=== PATIENT | female | born 1965 | race Caucasian/White ===

== ENCOUNTER 2016-11-16 14:49 | Inpatient (IN) | payer SELFPAY ==
[2016-11-16] MEDS ORDERED: Adacel (T-DAP) 0.5 ML VIAL ONE (15:37)
[2016-11-16] MEDS ORDERED: HYDROcodone/Acetaminophen 5/325 mg Tablet ONE (15:37)
[2016-11-16] MEDS ORDERED: Ondansetron HCl/PF 4 MG/2 ML Vial IVP PRN (17:04)
[2016-11-16] MEDS ORDERED: Ondansetron ODT 4 MG TAB PO PRN (17:04)
[2016-11-16] MEDS ORDERED: Dextrose 50% Abboject 50 ML SYRINGE SLOW IVP PRN (17:04)
[2016-11-16] MEDS ORDERED: HumaLOG 300 UNITS/3 ML VIAL SC PRN ×2 (17:04)
[2016-11-16] MEDS ORDERED: Sodium Chloride 0.9% 500 ML IV SCH (17:04)
[2016-11-16] MEDS ORDERED: Acetaminophen 325 MG TAB PO PRN (17:04)
[2016-11-16] MEDS ORDERED: Dextrose 5% in Water 1,000 ML IV PRN (17:04)
[2016-11-16] MEDS ORDERED: Ibuprofen 600 MG TAB PO PRN (17:04)
[2016-11-16] MEDS ORDERED: HYDROcodone/Acetaminophen 5/325 mg Tablet PO PRN ×2 (17:04)
[2016-11-16] MEDS ORDERED: Albuterol Sulfate 2.5 mg/3 ml Neb NEB PRN (17:04)
[2016-11-16] MEDS ORDERED: Lisinopril 10 MG TAB PO SCH (17:30)
[2016-11-16] MEDS ORDERED: Furosemide 40 MG TAB PO SCH (17:30)
[2016-11-16] MEDS ORDERED: SODIUM CHLORIDE 0.9% IVPB SCH (18:00)
[2016-11-16] MEDS ORDERED: VANCOMYCIN HCL IVPB SCH (18:00)
[2016-11-16] MEDS: Piperacillin/Tazobactam 4.5 GM in Sodium Chloride 0.9% 100 ML IVPB SCH ×2 (19:00→22:26)
--- NOTE | 2016-11-16 19:14 | RAD ---
RIGHT FOOT RADIOGRAPHS THREE VIEWS 11/16/16 PROVIDED CLINICAL HISTORY: Evidence for osteomyelitis. FINDINGS: There is no evidence for fracture or other acute osseous abnormality. Alignment appears anatomic. Elizabeth int spaces appear preserved. Posterior and plantar calcaneal enthesophyte formation are noted. IMPRESSION: No radiographic evidence for osteomyelitis. Radiographs are insensitive for detection of early osteo myelitis and if there is clinical concern for such, MRI should be considered. POS: JAMEY
[2016-11-16] MEDS: Carvedilol 6.25 MG TAB PO SCH (20:08)
[2016-11-16] MEDS: Docusate 100 MG CAP PO SCH (20:08)
[2016-11-16] MEDS: Nicotine 14 MG PATCH TD SCH (20:11)
[2016-11-16] MEDS ORDERED: Morphine Sulfate 2 MG/ML SYRINGE SLOW IVP PRN (21:29)
[2016-11-16] MEDS ORDERED: HYDROcodone/Acetaminophen 7.5/325 mg Tablet PO PRN ×2 (21:30)
[2016-11-16] MEDS: Vancomycin HCl 1.75 GM in Sodium Chloride 0.9% 500 ML IVPB SCH (23:01)
--- NOTE | 2016-11-17 02:55 | HP-2 ---
DATE OF ADMISSION: 11/16/2016 CODE STATUS: FULL. PRIMARY CARE PHYSICIAN: None. ATTENDING: Dr. Lorenz RESIDENT: Deepti Guerrier MD. CHIEF COMPLAINT: Right leg pain. HISTORY OF PRESENT ILLNESS: This is a 51-year-old female with past medical history of hypertension, hyperlipidemia, and obesity, who presents with right lower extremity pain. She has been having redness and swelling in her right leg since August. She went to the hospital back in August and was diagnosed with cellulitis, but does not remember ever being put on antibiotics. Her leg has continued to get worse, and then Sunday she stepped on a needle with that same foot and the pain has increased significantly. She has had some shortness of breath lately and she was diagnosed with diabetes recently. In the ER in [place], she was given clindamycin, vancomycin, Toradol, morphine, Zofran, labetalol, and aspirin. PAST MEDICAL HISTORY: 1. Diabetes. 2. Hypertension. 3. Hyperlipidemia. 4. Morbid obesity. 5. Possible history of CHF. PAST SURGICAL HISTORY: Bilateral tubal ligation, thoracentesis. ALLERGIES: No known drug allergies. MEDICATIONS: Has been out of medications since 10/10/2016, but her medication list includes: 1. [place] 10/325 mg q.6 hours p.r.n. 2. Diltiazem 240 mg XR. 3. Lasix 40 mg b.i.d. 4. Lisinopril 10 mg b.i.d. 5. Spironolactone 5 mg daily. SOCIAL HISTORY: Smokes one-half pack per day for 16 years. Denies alcohol or drug use. REVIEW OF SYSTEMS: A 12 point review of systems was conducted and was negative except what was mentioned in the HPI. PHYSICAL EXAMINATION: VITAL SIGNS: Blood pressure 151/81, pulse 100, respiratory rate 20, temperature 98.3, pulse ox 97% on 4 liters. Current weight 167 kilograms. GENERAL: Alert, oriented x3, in no acute distress, well-nourished, obese, appropriately interactive. EYES: Pupils are equal, round and reactive to light. Extraocular muscles are intact. Conjunctivae within normal limits. ENT: Nasal mucosa and oropharynx within normal limits. NECK: Supple, no lymphadenopathy. CARDIOVASCULAR: Regular rate and rhythm, no murmurs, 2+ radial pulses. RESPIRATORY: Normal effort, tight breath sounds with wheezing diffusely. SKIN: Right lower extremity erythema, warmth, fluctuance with a weeping area on back of the right leg. ABDOMEN: Soft, nontender to palpation, normoactive bowel sounds. No mass or distention. EXTREMITIES: No cyanosis. A 1+ pitting edema. MUSCULOSKELETAL: Structure and tone within normal limits, 5/5 muscle strength. Full range of motion. NEUROLOGIC: No focal deficits. Sensation within normal limits. PSYCHIATRIC: Appropriate. LABORATORY DATA: WBC 20.9, hemoglobin 12.9, hematocrit 42.9, platelets 457. Sodium 138, potassium 4.0, chloride 98, CO2 of 31, BUN 14, creatinine 0.71, GFR 87, glucose 105, calcium 9, total protein 6.8, albumin 3.1, AST 15, ALT 13, alkaline phosphatase 104, total bilirubin 0.6. A1c 6.4. ESR 95, troponin 0.099 , BNP 171. IMAGING: CTA of the chest showed no PE. ASSESSMENT AND PLAN: This is a 51-year-old female with morbid obese, who presents with: 1. Right lower extremity cellulitis and right foot abscess. We will get an x- ray of the right foot and bone scan to rule out osteomyelitis and gas gangrene. Did a small I&D of the abscess in the ED. We will get a wound culture. We will check blood cultures. Treat with vancomycin and Zosyn. We will get a wound care consult. We will check ESR and CRP. We will give 500 mL bolus of normal saline and consider surgery consult if the scans show osteomyelitis. We would like to get an MRI; however, the patient is too large for the MRI machine. 2. Acute hypoxic hypercapnic respiratory failure. The patient started on oxygen at home, is requiring 4 liters in ED. This is likely secondary to chronic obstructive pulmonary disease and obstructive sleep apnea. The patient has a clinical presentation of chronic bronchitis. Pulmonary embolism was ruled out with CTA. We will monitor and give DuoNebs and albuterol as needed. 3. Hypertensive urgency. The patient presented to outside hospital on hypertensive urgency. She has not taken medication since September. We will treat with LATRICE, beta krista and Lasix, and monitor. 4. Leukocytosis as elevated to 20.9, likely secondary to cellulitis with abscess, we will give fluids and monitor and antibiotics. 5. Elevated ESR. Concern for osteo. We will get a bone scan, the patient is too large for MRI. 6. Thrombocytosis, likely reactive secondary to cellulitis and abscess. We will monitor. 7. Congestive heart failure per the patient, she has history of congestive heart failure, unknown ejection fraction. We will get a TTE. Avoid fluid overload. Lasix 40 mg b.i.d. and daily weights, fluid restrict to 1800 mL and strict I's and O's. 8. Type 2 diabetes. A1c was 6.4. Sliding scale insulin, Accu-Checks a.c. and at bedtime. Add metformin, but will hold if getting contrast. 9. Venous stasis, bilateral lower extremities. The patient saw a physician. I will check an echo. 10. Hyperlipidemia. We will check fasting lipid panel. Potentially start her on statin. 11. Bronchitis, possibly chronic secondary to chronic obstructive pulmonary disease. DuoNebs and albuterol and oxygen as needed. 12. Morbid obesity. We will plan a walking program. She likely has obstructive sleep apnea. We will monitor. 13. Chronic kidney disease versus acute kidney injury. We will give fluids and monitor. 14. Tobacco abuse. Nicoderm patch and counseling. 15. Venous thromboembolism prophylaxis. Lovenox. DISPOSITION: Admit to medical. Symptomatic medication will be provided. History and physical exam as well as management discussed with Dr. Lorenz. ROMI
[2016-11-17] MEDS: Piperacillin/Tazobactam 4.5 GM in Sodium Chloride 0.9% 100 ML IVPB SCH ×3 (05:49→22:32)
[2016-11-17] MEDS ORDERED: Enoxaparin Sodium 60 MG/0.6 ML SYRINGE SC SCH ×2 (06:00→09:53)
[2016-11-17 06:25] LABS: Band 7 % (5-11); Hematocrit 44.6 % (36.0-47.0); Mean Platelet Volume 7.7 fL (7.4-10.4); Metamyelocyte 2 % (0-0); Neutrophil 77 % (42-75); Red Blood Cell (RBC) Count 4.92 mill/uL (4.20-5.40); White Blood Cell (WBC) Count 20.4 thou/uL (4.8-10.8)
[2016-11-17 06:29] LABS: Anion Gap 15 mmol/L (10-20); BUN (Urea Nitrogen) 20 mg/dL (7.0-18.7); Calc. Creatinine Clearance 141 mL/min (70-130); Carbon Dioxide 29 mmol/L (22-29); Chloride 99 mmol/L (98-107); Cholesterol 111 mg/dl (< 200 Desired); Estimated GFR-MDRD 45; LDL Cholesterol, Calculated 63 mg/dL
[2016-11-17 06:33] LABS: Oxyhemoglobin 83.9 % (94.0-97.0); Sodium 141 mmol/L (135-148)
[2016-11-17] MEDS: Vancomycin HCl 1.75 GM in Sodium Chloride 0.9% 500 ML IVPB SCH ×2 (06:39→14:30)
[2016-11-17] MEDS ORDERED: Naloxone HCl 0.4 mg/ml Vial IM SCH (06:45)
[2016-11-17] MEDS ORDERED: Furosemide 40 MG/4 ML VIAL SLOW IVP SCH (07:00)
--- NOTE | 2016-11-17 07:19 | PDOC.EVN ---
Event Note - Event Note Event Note: At 6 got a call from pt nurse saying that she was more drowsy and a little confused. Also stated when RT was in for breathing tx at 6 they stated they thought she was retaining CO2. Went and examined pt. She was drowsy. She would wake up when asked but then doze off and have a little drool from her mouth. Also her o2 was 91 on 3 L which was increased from 2 L during the night. At this time we ordered an ABG. The abg came back with a ph of 7.06 and a pCO2 of 130. At this time we decided to transfer her to the CCU in order to get BIPAP. Pt became a little more alert during the move. Got her down and started at bipap. Pt was still a little lethargic. Will repeat ABG in 30 minutes to assess how she is doing. <Wilfrido Mcgarry - Last Filed: 11/17/16 07:33> Attending Addendum - Attending Addendum I personally evaluated the patient and discussed the management with Dr. Mcgarry I agree with the Event note documented above with any addition or exceptions noted below- Residents called by nursing due to patient being more lethargic; less responsive and increased O2 requirements. Upon transfer patient more awake but would easily fall asleep with decrease in O2 saturations. P 105 RR 18 88-90 % on 3L increases to 91-92% when patient stimulated. Lungs- CTA b/l; CV- tachycardic, no murmur Ext- extensive cellulitis over right lower extremity. ABG 7.06/130/66/36 88% on 3L NC. Patient transferred to ICU for BiPap initiation due to acute on chronic respiratory failure most likely secondary to obesity-hypoventilation syndrome. Consult pulmonary. Continue IV abx for cellulitis. <Daisy Chance - Last Filed: 11/17/16 08:17>
[2016-11-17 08:19] LABS: Oxyhemoglobin 92.6 % (94.0-97.0); Sodium 139 mmol/L (135-148)
[2016-11-17 08:21] LABS: Mode BIPAP 10 16/5 50%; Pressure Support 16 cmH2O
[2016-11-17] MEDS ORDERED: Furosemide 40 MG TAB PO SCH (09:00)
[2016-11-17] MEDS ORDERED: Lisinopril 10 MG TAB PO SCH (09:00)
[2016-11-17] MEDS: Docusate 100 MG CAP PO SCH ×2 (09:27→21:06)
[2016-11-17] MEDS: Carvedilol 6.25 MG TAB PO SCH ×2 (09:27→15:45)
--- NOTE | 2016-11-17 09:31 | PDOC.FM ---
- Subjective Subjective: Overnight patient was found to have lethargy when being woken, was able to answer questions, but would quickly return to sleep. O2 sats were depressed and ABG showed 7.06/130/66 so patient was transferred to CCU for BiPAP. After being on BiPAP for about 30 minutes, patient had ABG of 7.11/108/113. - Objective MAR Reviewed: Yes Vital Signs & Weight: Vital Signs (12 hours) Temp Pulse Resp BP BP Pulse Ox 11/17/16 09:27 155/76 H 11/17/16 08:00 98.0 F 94 18 90 L 11/17/16 05:56 94 18 91 L 11/17/16 04:00 97.4 F L 101 H 20 148/87 H 93 L 11/17/16 02:53 93 L 11/17/16 02:30 104 H 20 11/17/16 00:00 98.5 F 104 H 18 127/83 93 L 11/16/16 22:21 108 H 16 Weight Weight 136.8 kg Most Recent Monitor Data Heart Rate from ECG 98 NIBP 114/66 NIBP BP-Mean 79 Respiration from ECG 22 SpO2 70 I&O: 11/16/16 11/17/16 11/18/16 06:59 06:59 06:59 Intake Total 240 500 Output Total 75 Balance 240 425 Result Diagrams: 11/17/16 04:26 11/17/16 04:26 <Mario Castro - Last Filed: 11/17/16 10:47> - Objective Vital Signs & Weight: Vital Signs (12 hours) Temp Pulse Resp BP BP Pulse Ox 11/17/16 10:51 99 11/17/16 10:49 98.0 F 11/17/16 09:27 155/76 H 11/17/16 08:00 98.0 F 94 18 90 L 11/17/16 05:56 94 18 91 L 11/17/16 04:00 97.4 F L 101 H 20 148/87 H 93 L 11/17/16 02:53 93 L 11/17/16 02:30 104 H 20 11/17/16 00:00 98.5 F 104 H 18 127/83 93 L Weight Weight 136.8 kg Most Recent Monitor Data Heart Rate from ECG 99 NIBP 112/71 NIBP BP-Mean 85 Respiration from ECG 17 SpO2 90 I&O: 11/16/16 11/17/16 11/18/16 06:59 06:59 06:59 Intake Total 240 570 Output Total 135 Balance 240 435 Result Diagrams: 11/17/16 04:26 11/17/16 04:26 <RosalieSven R - Last Filed: 11/17/16 11:55> Phys Exam - Physical Examination lethargic mild wheezing throughout Cardiovascular: RRR, no significant murmur Gastrointestinal: non-tender, positive bowel sounds R 4th toe dark, beginning to look necrotic Neurological: moves all 4 limbs Deviation from normal: lethargic, difficult to keep awake Deviation from normal: R medial lower leg cellulitis, erythema of entire lower leg -: cyanosis in all 4 extremities <Mario Castro M - Last Filed: 11/17/16 10:47> Dx/Plan (1) Cellulitis of right lower extremity Code(s): L03.115 - CELLULITIS OF RIGHT LOWER LIMB Status: Acute Plan: consult Gen Surgery consult ID consult wound care continue on vanc and zosyn Blood and wound cultures pending (2) Acute respiratory failure with hypoxia and hypercapnia Code(s): J96.01 - ACUTE RESPIRATORY FAILURE WITH HYPOXIA; J96.02 - ACUTE RESPIRATORY FAILURE WITH HYPERCAPNIA Status: Acute Plan: Currently on BiPAP O2 sats stable repeat ABG later this morning (3) Hypertensive urgency Code(s): I16.0 - HYPERTENSIVE URGENCY Status: Resolved Plan: present when she first presented, AM values stable, continue to monitor (4) Abscess of right leg Code(s): L02.415 - CUTANEOUS ABSCESS OF RIGHT LOWER LIMB Status: Suspected Plan: Dr. Valencia consulted continue with vanc and zosyn Bld cx pending (5) Leukocytosis Code(s): D72.829 - ELEVATED WHITE BLOOD CELL COUNT, UNSPECIFIED Status: Acute (6) Thrombocytosis Status: Acute (7) STEVE (acute kidney injury) Code(s): N17.9 - ACUTE KIDNEY FAILURE, UNSPECIFIED Status: Acute Plan: improved from yesterday, NS at 100ml/hr (8) HLD (hyperlipidemia) Code(s): E78.5 - HYPERLIPIDEMIA, UNSPECIFIED Status: Acute (9) Morbid obesity Code(s): E66.01 - MORBID (SEVERE) OBESITY DUE TO EXCESS CALORIES Status: Acute (10) DM2 (diabetes mellitus, type 2) Status: Acute Plan: accuchecks, JN <Mario Castro - Last Filed: 11/17/16 10:47> Attending Addendum - Attending Addendum I personally evaluated the patient and discussed the management with Dr. Castro. I agree with the History, Examination, Assessment and Plan documented above with any addition or exceptions noted below. Patient with what appears to be extensive cellulitis and abscess of the foot and leg. Continue abx and will obtain surgery consult. Patient also declined from respiratory status, now on Bipap. She is having a bit of anxiety related to this, therefore we will start with some Ativan therapy but work to avoid decreasing her alertness and ability to tolerate Bipap. There is also high concern for osteomyelitis due to elevated ESR and size of active infection, but cannot get MRI or bone scan at this time. Wait further surgery recs. Pulm consulted due to hypercapneic respiratory failure likely 2/2 [place] and/or COPD. <Sven Wiggins R - Last Filed: 11/17/16 11:55>
[2016-11-17 09:33] LABS: Bilirubin Negative (Negative); Blood, Urine Moderate (Negative); Glucose, Urine (Dipstick) Negative (Negative); Ketone, Urine Trace mg/dL (Negative); Nitrite Negative (Negative); Protein, Urine (Dipstick) 30 mg/dL (Neg-Trace)
[2016-11-17 09:36] LABS: Bacteria/HPF None Seen HPF (None Seen); RBC/HPF 0-3 HPF (0-3); Squamous Epithelial 21-50 HPF (0-3)
[2016-11-17 10:03] LABS: Hyaline Casts/LPF 0-3 HYALINE CAST LPF (0-3 Hyaline)
[2016-11-17] MEDS ORDERED: Lorazepam 2 MG/ML VIAL SLOW IVP PRN (10:15)
[2016-11-17] MEDS: Sodium Chloride 0.9% 1,000 ML IV SCH ×2 (10:26→21:05)
--- NOTE | 2016-11-17 12:31 | CON ---
DATE OF CONSULTATION: 11/17/2016 This is 45 minutes critical care time. HISTORY OF PRESENT ILLNESS: This patient is a 51-year-old female who was admitted to the hospital a round 6:00 p.m. yesterday. Chief complaint at that time was right leg pain. This morning, she lzia me more somnolent to the point where she was not arousable. She had a profound respiratory acidosis , which was acute on chronic and she was transferred here with the presumptive diagnosis of decompen sated sleep apnea. She is very somnolent at this time and cannot give me much in the way of history. PAST MEDICAL HISTORY: Per the chart: 1. Diabetes mellitus. 2. Hypertension. 3. Hyperlipidemia. 4. Morbid obese. 5. Congestive heart failure. PAST SURGICAL HISTORY: Bilateral tubal ligation and she has had a thoracentesis. ALLERGIES: None. MEDICATIONS PRIOR TO ADMISSION: [place], diltiazem, Lasix, lisinopril and spironolactone. SOCIAL HISTORY: One-half pack per day smoker for the last 16 years. Does not consume alcohol. REVIEW OF SYSTEMS: Cannot be obtained secondary to patient's lethargy. PHYSICAL EXAMINATION: VITAL SIGNS: Temperature is 98.0, pulse 98, blood pressure 114/66, respiratory rate 22 and O2 sat i s 100% on the ABG. HEENT: Sclerae are anicteric. Oropharynx is clear. NECK: No JVD. LUNGS: Fairly clear with decreased respiratory effort. CARDIOVASCULAR: S1 and S2 slightly tachycardic without murmur. ABDOMEN: Morbidly obese. SKIN: No indication of wound. EXTREMITIES: She has a necrotizing wound on the right lower extremity, posterior calf medial aspect with gangrenous appearing right fourth toe. LABORATORY DATA: Sodium 130, potassium 5, chloride 99, CO2 of 29, BUN 20, creatinine 1.3, glucose 1 19 and calcium 9. ABG; pH 7.12, pCO2 of 108, PO2 of 113 and is on BiPAP at the rate of 10. White b lood cell count 20.4, hemoglobin 12, hematocrit 44, platelet count 507 with 77% neutrophils and 7% b ands. ASSESSMENT: 1. Acute on chronic respiratory acidosis signifying sleep apnea, probably complicated by sepsis. 2. Sepsis. 3. Right lower extremity cellulitis involving most of her calf and her right fourth toe. I was vern d by the residents that she had stepped on a nail previously. I did find that she got a tetanus alvarez t last night. I am not sure whether or not she was up to date on tetanus before then. PLAN: I have consulted both Dr. Valencia and Dr. Lee for further evaluation. I am concerned that t his may need to be treated surgically. She is already growing out gram negative rods, so Dr. Lee will adjust her antibiotics. I will recheck her ABG in several hours. If it is not better, then sh e may require endotracheal intubation. Prognosis at this time is guarded.
--- NOTE | 2016-11-17 12:37 | CON ---
DATE OF CONSULTATION: 11/17/2016 REASON FOR CONSULTATION: Sepsis. HISTORY OF PRESENT ILLNESS: A 51-year-old who has a history of type 2 diabetes, chronic smoking and prior episode of empyema treated at this hospital secondary to Streptococcus intermedius in 2003, i nvolving the left lung. Patient does not have much in terms of medical records since then and was a dmitted now by the Family Medicine team with a history of type 2 diabetes, hypertension, and progres sively worsening inflammatory changes in right leg, waxing and waning for the past few weeks. Sandra mccall, treated in August with antimicrobial therapy and then recrudescence since Sunday after she st epped on a needle. The patient was brought into the hospital. Initial findings include blood press ure 150/81, pulse 100, respiratory rate 20, temperature 98.3, and O2 sat 97%. She was described as alert initially. Respiratory and cardiovascular examination did not appear unremarkable except for wheezing, which was diffuse. Skin exam with right lower extremity erythema and initial white cell c ount 20,000 with a left shift and creatinine 0.71. GFR 87 and bilirubin was 0.6. ESR 95 and had a CTA of the chest, which showed no pulmonary embolism. The initial impression was cellulitis with hy poxic hypercapnic respiratory failure, and hypertension. She is admitted now to the ICU and Pulmona ry Medicine consulted. She is on a BiPAP mask noninvasive ventilation modality. Patient apparently has been waking up a little bit over the past few minutes, still delirious and asking for water to drink. Denies headaches, no chest pain, no abdominal pain. She has marked pain in the right lower extremity. PAST MEDICAL HISTORY: Diabetes, obesity, prior episode of left lung and empyema which required deco rtication here in the hospital in 1999, chronic smoking, and hypertension. ALLERGIES: None. PAST SURGICAL HISTORY: Tubal ligation. MEDICATIONS: Currently, she is receiving [place], DuoNeb, Coreg, Colace, glucagon, insulin, Zosyn, va ncomycin. PHYSICAL EXAMINATION: VITAL SIGNS: T-max 98.5, blood pressure 114/66, heart rate 98, and O2 saturation was 90%, initially 70%, respiratory rate 22. SKIN: Exam showed the area of circumferential erythema in the right leg with areas of epidermal frandy is towards the posterior aspect of the leg. She has an area of necrotic toe in the fourth digit rig ht foot. There is evidence of acrocyanosis in both hands and feet. No lymphadenopathy. HEENT: Ocular movements are conjugate. Sclerae white. Pupils are equal. Oral cavity moist. Nume magen teeth in place with significant decay and gum disease. NECK: Supple, with jugular venous distention. LUNGS: With symmetric air entry. No wheezing is noticed at this time. A little bit of rhonchi in the right side at the base. HEART: S1, S2 with regular rate. No murmurs. No S3 or S4. ABDOMEN: Soft with quite a bit of distention, lymphedema in the abdominal wall, borderline Peau d'o range changes in the lower abdominal skin. Area with some maceration in the skin folds with intertr igo. Hunter catheter in place. She has a peripheral IV access and she seems to move extremities equ ally. She is delirious, knows her name, and she knew she was in the hospital, but could not tell me which and could not tell me the date either. LABORATORY DATA: White cell count 20,000, hemoglobin 12, MCV 90, platelets 507, 77% neutrophils, pH 7.06 on arrival with a pCO2 of 130. Sodium 138, creatinine 1.27. Microbiology, we have a sample f rom the foot which showed a polymicrobial jesusita in the Gram stain with gram-negative rods isolated t hus far. ASSESSMENT: 1. Diabetes type 2 with obesity, chronic smoking. 2. Hypoxic hypercapnic respiratory failure. 3. Sepsis secondary to right lower extremity polymicrobial infection, possible necrotizing features . DISCUSSION: The patient to be continued on current regimen and surgical evaluation, on ventilatory support, noninvasive at this time. The likely organisms would include gram negatives including Pseu domonas aeruginosa, particularly as the main concern with possible bacteremia associated. Possibili ty of fasciitis is considered. She does have a necrotic fourth toe which probably will eventually h ave to be amputated. There is not a precise indication for immunoglobulin administration, although it would be a reasonable addition to the management, although not essential at this point, I believe her process is likely to be polymicrobial with significant gram negative component and Pseudomonas is high in the other concerns.
[2016-11-17] MEDS ORDERED: Propofol 1,000 MG/100 ML VIAL IV ONE (12:52)
[2016-11-17] MEDS ORDERED: Sedation Protocol FS ONE (13:52)
[2016-11-17] MEDS ORDERED: Fentanyl 20 MCG/ML 250 ML IVPB SCH (13:54)
[2016-11-17] MEDS ORDERED: DISCONTINUE PREVIOUS NARCOTIC PAIN MEDICATIONS AND BENZODIAZEPINES FS SCH (13:54)
[2016-11-17] MEDS ORDERED: Morphine Sulfate 2 MG/ML SYRINGE SLOW IVP PRN (13:54)
--- NOTE | 2016-11-17 13:59 | CON ---
DATE OF CONSULT: 11/17/2016 HISTORY OF PRESENT ILLNESS: Mindy Oliveira is a 51-year-old morbidly obese female recently received Ativan on BiPAP in the ICU, dyspneic, sedated, and lethargic. The patient's family is not present. We will contact them. I was asked by Dr. Yao to see her for concern about her right leg. She has a diabetic infection in right fourth toe where she had some kind of puncture wound. She has bli stering of the toe, ecchymosis, purulent drainage. X-rays 11/16/2016 at 4:51 reveals absence of ost eomyelitis, but she has purulent material, darkened toe, severe infection with cellulitis over the d orsum of the foot extending into the lower leg. She has necrosis of the skin posteriorly with blist ering. Concern is for severe necrotizing infection. She has been afebrile. White count is 20,000 with 77% neutrophils. BUN is 20, creatinine 1.27, GFR 45. Would recommend this urgently today. We will contact her family. MEDICATIONS: She takes oral hypoglycemic at home, although we do not have a medication list. In [facility], she is on vancomycin, Zosyn and is wearing a BiPAP, 5 feet and 4 inches, 301 pounds. [facility] is admitted to Family Practice Service. She is followed by Dr. Yao, Critical Care. PAST MEDICAL HISTORY: Diabetes, hypertension, hyperlipidemia, metabolic syndrome, and morbid obesit y. PAST SURGICAL HISTORY: Bilateral tubal ligation and thoracentesis. HOSPITAL OUTPATIENT MEDICATIONS: Per the history and physical, on [place], diltiazem, Lasix, lisinopr il, and spironolactone. REVIEW OF SYSTEMS: Not possible. PHYSICAL EXAMINATION: VITAL SIGNS: Height 5 feet and 3 inches, weight 301 pounds, 51 BMI, temperature 98 degrees, blood p ressure 120/64. Patient is on BiPAP, lethargic, received Ativan. LUNGS: Clear. CARDIAC: 100, regular rate and rhythm. ABDOMEN: Obese, soft. Edematous skin. EXTREMITIES: Markedly edematous lower extremities, right fourth toe, purulent drainage, ecchymosis, bluish color, pus exerts from the base of the toe wound. Cellulitis over the dorsum of the foot. Cellulitis extends to the lower leg posteriorly. There is edema, skin necrosis posteriorly and slou ghing of the skin. ASSESSMENT AND PLAN: 1. Severe diabetic infection, right fourth toe extending over the dorsum of the foot to lower leg. Would recommend amputation of the right fourth toe and debridement of soft tissues as indicated. B ased on intraoperative findings, she is at risk for having to have a guillotine amputation. She francois s have strongly dopplerable signals in the right foot. I do not have ability to obtain a history re garding tobacco and alcohol use. 2. Diabetes mellitus. 3. Hypertension. 4. Severe morbid obesity.
--- NOTE | 2016-11-17 14:35 | RAD ---
SINGLE VIEW CHEST: Date: 11/17/16 COMPARISON: 08/18/03. HISTORY: Line placement. FINDINGS: Single view of the chest shows a normal sized cardiomediastinal silhouette. An endotracheal tube is seen with its tip at the lower border of the clavicles. A central venous catheter is seen with its t ip in the superior vena cava. There is no evidence of consolidation, mass, pneumothorax, or pleural effusion. IMPRESSION: Appropriate position of lines and tubes. POS: JAMEY
[2016-11-17] MEDS: Vecuronium 10 MG VIAL IVP PRN ×3 (15:40→21:12)
[2016-11-17 15:51] LABS: Oxyhemoglobin 72.6 % (94.0-97.0); Sodium 138 mmol/L (135-148)
[2016-11-17 15:54] LABS: Pressure Support 16 cmH2O
[2016-11-17 15:55] LABS: Mode BIPAP
[2016-11-17 16:05] LABS: Oxyhemoglobin 90.7 % (94.0-97.0); Sodium 140 mmol/L (135-148)
[2016-11-17] MEDS: Propofol 1,000 MG/100 ML VIAL IV PRN ×3 (16:05→22:25)
[2016-11-17 16:06] LABS: Mechanical Tidal Volume 400 ml; Mode SIMV/PSV; Pressure Support 10 cmH2O; Vent YES
[2016-11-17] MEDS ORDERED: Midazolam HCl 2 mg/2 ml Vial ONE (16:33)
[2016-11-17] MEDS ORDERED: Fentanyl 100 MCG/2 ML VIAL ONE (16:33)
[2016-11-17 20:50] LABS: Vancomycin, Trough 34.1 ug/mL
--- NOTE | 2016-11-17 21:04 | OP ---
DATE OF PROCEDURE: 11/17/2016 These procedures took place between 1:00 p.m. and 2:00 p.m. and are not included in the critical car e time dictated on this patient earlier today. PROCEDURE: Endotracheal intubation. PREOPERATIVE DIAGNOSIS: Respiratory failure, on BiPAP, nonresponsive to BiPAP. POSTOPERATIVE DIAGNOSIS: Successful endotracheal intubation. ANESTHESIA: None. DESCRIPTION OF PROCEDURE: This was done awake because the patient is overweight and it was difficul t to visualize her airway. I first attempted to intubate her bronchoscopically, but could not see h er vocal cords with the bronchoscope. I then used a size 4 blade on a GlideScope and was able to in tubate the patient through her cords with a 7.5 endotracheal tube on a first attempt. The placement was confirmed by end-tidal CO2 monitoring and by auscultation. The patient was then placed on [facility] anical ventilation.
[2016-11-17] MEDS: Nicotine 14 MG PATCH TD SCH (21:06)
--- NOTE | 2016-11-17 21:31 | OP ---
PROCEDURE: Central line placement. PREOPERATIVE DIAGNOSIS: Poor IV access, septic shock. POSTOPERATIVE DIAGNOSIS: Poor IV access, septic shock. ANESTHESIA: None. DESCRIPTION OF PROCEDURE: The patient was placed in the Trendelenburg position. The right IJ regio n was cleansed with chlorhexidine and draped sterilely. Ultrasound was used to locate the right int ernal jugular vessel. Using the modified Seldinger technique, a triple lumen catheter was placed in the right IJ line. Three ports flushed venous blood. Antibiotic patch was placed around the hub o f the central line and the line was sutured into position and the line was then dressed sterilely. Postoperative x-ray is pending.
[2016-11-17 22:49] LABS: Oxyhemoglobin 92.4 % (94.0-97.0); Sodium 141 mmol/L (135-148)
[2016-11-17 22:59] LABS: Mechanical Tidal Volume 400 ml; Mode SIMV; Modified Allen's Test POSITIVE; Pressure Support 10 cmH2O; Vent YES
[2016-11-18] MEDS: Propofol 1,000 MG/100 ML VIAL IV PRN ×8 (01:03→21:59)
[2016-11-18 04:13] LABS: Anion Gap 11 mmol/L (10-20); BUN (Urea Nitrogen) 22 mg/dL (7.0-18.7); Calc. Creatinine Clearance 218 mL/min (70-130); Calcium 8.6 mg/dL (7.8-10.44); Carbon Dioxide 30 mmol/L (22-29); Chloride 103 mmol/L (98-107); Estimated GFR-MDRD 72
[2016-11-18 04:18] LABS: #Eosinphils 0.1 thou/uL (0.0-0.7); #Lymphocytes 1.7 thou/uL (1.20-3.40); #Monocytes 0.9 thou/uL (0.11-0.59); #Neutrophils 8.1 thou/uL (1.40-6.50); %Eosinophils 0.5 % (0.0-10.0); %Lymphocytes 15.7 % (21.0-51.0); %Monocytes 8.4 % (0.0-10.0); Hematocrit 36.9 % (36.0-47.0); Mean Platelet Volume 7.7 fL (7.4-10.4); Red Blood Cell (RBC) Count 4.25 mill/uL (4.20-5.40); White Blood Cell (WBC) Count 10.7 thou/uL (4.8-10.8)
[2016-11-18] MEDS: Piperacillin/Tazobactam 4.5 GM in Sodium Chloride 0.9% 100 ML IVPB SCH (04:53)
[2016-11-18] MEDS: Enoxaparin Sodium 40 MG/0.4 ML SYRINGE SC SCH (05:28)
--- NOTE | 2016-11-18 06:39 | PDOC.FM ---
- Subjective Subjective: Pt intubated and sedated prior to surgery for pre-operative planning due to difficult airway. POD#1 s/p I&D of wound & right 4th MT resection. Per night RN, no acute events overnight. Paralytic used x 1 for agitation overnight. Continued on propofol for sedation. UOP good and tolerating vent well per RN. - Objective MAR Reviewed: Yes Vital Signs & Weight: Vital Signs (12 hours) Temp Pulse Resp Pulse Ox 11/18/16 06:00 24 H 11/18/16 04:00 99.2 F 11/18/16 03:52 24 H 11/18/16 02:24 96 24 H 92 L 11/18/16 02:00 24 H 11/18/16 00:00 99.0 F 24 H 11/17/16 22:15 101 H 24 H 87 L 11/17/16 22:00 24 H 11/17/16 20:00 99.1 F 84 24 H 91 L Weight Admit Weight 166.468 kg Weight 170.4 kg Most Recent Monitor Data Heart Rate from ECG 94 NIBP 130/61 NIBP BP-Mean 78 Respiration from ECG 21 SpO2 93 I&O: 11/16/16 11/17/16 11/18/16 06:59 06:59 06:59 Intake Total 240 3659 Output Total 2595 Balance 240 1064 Result Diagrams: 11/18/16 03:50 11/18/16 03:50 <Deepti Abdi - Last Filed: 11/18/16 06:36> - Objective Vital Signs & Weight: Vital Signs (12 hours) Temp Pulse Resp BP Pulse Ox 11/18/16 11:11 93 125/60 11/18/16 10:00 24 H 11/18/16 08:36 130/61 11/18/16 08:00 99.1 F 99 24 H 91 L 11/18/16 07:00 99.1 F 11/18/16 06:58 100 130/61 11/18/16 06:00 24 H 11/18/16 04:00 99.2 F 11/18/16 03:52 24 H 11/18/16 02:24 96 24 H 92 L 11/18/16 02:00 24 H 11/18/16 00:00 99.0 F 24 H Weight Admit Weight 166.468 kg Weight 170.4 kg Most Recent Monitor Data Heart Rate from ECG 102 NIBP 125/60 NIBP BP-Mean 84 Respiration from ECG 35 SpO2 94 I&O: 11/17/16 11/18/16 11/19/16 06:59 06:59 06:59 Intake Total 240 3659 Output Total 7065 865 Balance 240 1064 -865 Result Diagrams: 11/18/16 03:50 11/18/16 03:50 <Sven Wiggins - Last Filed: 11/18/16 11:22> Phys Exam - Physical Examination Constitutional: NAD (intubated & sedated) HEENT: moist MMs, sclera anicteric opens eyes to stimulation Neck: no JVD, supple Respiratory: wheezing present (end expiratory wheezes) Cardiovascular: RRR, no significant murmur Gastrointestinal: soft, non-tender, no distention b/l LE pitting edema (2+), right foot wrapped to mid tibia sedated Deviation from normal: sedated but arousable Deviation from normal: candidal intertrigo under abd pannus. erythma to ant mc RLE <Deepti Abdi - Last Filed: 11/18/16 06:36> Dx/Plan (1) Acute respiratory failure with hypoxia and hypercapnia Code(s): J96.01 - ACUTE RESPIRATORY FAILURE WITH HYPOXIA; J96.02 - ACUTE RESPIRATORY FAILURE WITH HYPERCAPNIA Status: Acute Plan: Intubated pre-operatively on 11/17 for difficult airway and inability to tolerate BiPap. Minimal improvement in respiratory status on Bipap, however s/p intubation, pH improved and CO2 slowly decreasing. May tolerate extubation later today. Likely underlying COPD and/or WALTER/Pickwickian syndrome in the setting of chronic respiratory failure. (2) Chronic hypercapnic respiratory failure Code(s): J96.12 - CHRONIC RESPIRATORY FAILURE WITH HYPERCAPNIA Status: Chronic Plan: Likely underlying COPD and/or WALTER/Pickwickian syndrome in the setting of chronic respiratory failure. Recommend smoking cessation & outpt sleep study. (3) Necrosis of toe Code(s): I96 - GANGRENE, NOT ELSEWHERE CLASSIFIED Status: Acute Plan: POD#1 s/p right 4th phalanx & MT amputation with debridement by Dr. Valencia. Infection improving as WBC ct down, plt down and pt afebrile. Resp status improving on vent. On vanc & zosyn for broad-spectrum coverage. Held vanc due to supratherapeutic trough. Redraw level @ 12-24 hr and restart per protocol. S/ P WCx in ED & intra-operatively. Currently growing GNR. No Bcx drawn-- will order if pt clinical status worsens. Plan for wound vac placement today. (4) Abscess of right leg Code(s): L02.415 - CUTANEOUS ABSCESS OF RIGHT LOWER LIMB Status: Acute Plan: POD#1 s/p right 4th phalanx & MT amputation with debridement. Infection improving on Vanc & zosyn. S/P WCx in ED & intra-operatively. (5) Cellulitis of right lower extremity Code(s): L03.115 - CELLULITIS OF RIGHT LOWER LIMB Status: Acute Plan: Vanc & Zosyn. Ulcer eschar also sharply debrided 11/[address] Valencia. (6) Hypertension Code(s): I10 - ESSENTIAL (PRIMARY) HYPERTENSION Status: Acute Qualifiers: Hypertension type: unspecified Qualified Code(s): I10 - Essential (primary ) hypertension Plan: HTN urgency resolved. BPs wnl on sedation. Will restart meds when extubated. (7) DM2 (diabetes mellitus, type 2) Status: Chronic Qualifiers: Diabetes mellitus complication status: with unspecified complications Diabetes mellitus mcfp insulin use: without termite control representative use Qualified Code( s): E11.8 - Type 2 diabetes mellitus with unspecified complications Plan: SSI currently. Will need to go home on lisinopril & metformin. (8) HLD (hyperlipidemia) Code(s): E78.5 - HYPERLIPIDEMIA, UNSPECIFIED Status: Chronic Qualifiers: Hyperlipidemia type: unspecified Qualified Code(s): E78.5 - Hyperlipidemia , unspecified Plan: Low HDL, no indication for statin at this time. pending echo to r/o CHF. (9) Morbid obesity Code(s): E66.01 - MORBID (SEVERE) OBESITY DUE TO EXCESS CALORIES Status: Chronic (10) Lymphedema of both lower extremities Code(s): I89.0 - LYMPHEDEMA, NOT ELSEWHERE CLASSIFIED Status: Chronic Plan: Up 3 kg from admission- questionable h/o CHF upon admission. Pending echo read. Give low dose lasix this am. (11) Tobacco abuse Code(s): Z72.0 - TOBACCO USE Status: Chronic Plan: nicotine TD patch. professor of counseling re: smoking cessation. <Deepti Abdi - Last Filed: 11/18/16 06:36> Attending Addendum - Attending Addendum I personally evaluated the patient and discussed the management with Dr. Abdi. I agree with the History, Examination, Assessment and Plan documented above with any addition or exceptions noted below. Patient stable this morning. Working to wean her from ventilator today that she was placed on for surgery. Improved from respiratory standpoint, though I would not be surprised if she was difficult to wean to due likely chronic respiratory insufficiency. Her Vanc trough was elevated so that is being held at this time. WBC count improved, and biggest source of infection removed yesterday by amputation. Continue wound care and restart Vanc when trough appropriate. <Sven Wiggins - Last Filed: 11/18/16 11:22>
--- NOTE | 2016-11-18 06:48 | OP ---
DATE OF PROCEDURE: 11/17/2016 PREOPERATIVE DIAGNOSES: Super morbid obesity, respiratory failure, cellulitis and infection, right leg with diabetic infection, right fourth toe with necrotizing soft tissue infection. POSTOPERATIVE DIAGNOSES: Super morbid obesity, respiratory failure, cellulitis and infection, right leg with diabetic infection, right fourth toe with necrotizing soft tissue infection. PROCEDURES PERFORMED: Amputation of right great toe, right fourth toe and metatarsal. Wound left o pen for healing by secondary intention, ____ debridement, eschar, superficial skin, the right window unit air conditioning mechanic ior medial distal leg. ANESTHESIA: General. DESCRIPTION OF PROCEDURE IN DETAIL: The patient was taken to the operating room, where under genera l anesthesia, the right lower extremity was prepped with ChloraPrep and draped in routine fashion. The patient had a necrotic right fourth toe. There was a deep infection with blister in the skin an d discoloration. Incision was made for amputation of the right fourth toe and metatarsal, carried d own through skin and subcutaneous tissue and metatarsal, transected with a bone cutter, resected pro ximally with rongeur, soft tissue debrided sharply and excised. Wound left open. Hemostasis gained with cautery was good bleeding. Sterile dressing applied. Wound VAC will be applied tomorrow. Po sterior right leg and posterior medial, there were some excoriations superficial, erosion of the ski n, eschar and slough debrided sharply. There was no evidence of deep infection or fluctuance, so de ep incision was not made and sterile dressings applied.
[2016-11-18] MEDS ORDERED: Furosemide 20 MG/2 ML VIAL SLOW IVP SCH (07:00)
[2016-11-18 07:25] LABS: Oxyhemoglobin 90.6 % (94.0-97.0); Sodium 141 mmol/L (135-148)
[2016-11-18 07:27] LABS: Modified Allen's Test POSITIVE
[2016-11-18 07:28] LABS: Mechanical Tidal Volume 400 ml; Mode SIMV/PSV; Pressure Support 10 cmH2O; Vent YES
[2016-11-18] MEDS: Carvedilol 6.25 MG TAB PO SCH ×2 (08:36→17:01)
[2016-11-18] MEDS: Docusate 100 MG CAP PO SCH ×2 (08:36→21:11)
[2016-11-18] MEDS: Sodium Chloride 0.9% 1,000 ML IV SCH ×3 (08:38→21:59)
[2016-11-18 08:55] LABS: Vancomycin, Random 14.4 ug/mL (See Comment)
[2016-11-18] MEDS: PIPERACILLIN IVPB SCH ×3 (09:03→21:11)
[2016-11-18] MEDS: SODIUM CHLORIDE IVPB SCH ×3 (09:03→21:11)
[2016-11-18] MEDS: ADMIXTURE FEE IVPB SCH ×3 (09:03→21:11)
[2016-11-18] MEDS: TAZOBACTAM IVPB SCH ×3 (09:03→21:11)
--- NOTE | 2016-11-18 11:22 | PRG ---
DATE OF SERVICE: 11/18/2016 SUBJECTIVE: The patient is awake. She is on mechanical ventilation. She is currently receiving wo und care to her foot. PHYSICAL EXAMINATION: VITAL SIGNS: On exam, temperature 99.1, pulse 102, blood pressure 109/67, O2 sat 95%. A 24 intake 3659 mL, output 2595 mL. Weight 375 pounds. HEENT: Unremarkable except for the endotracheal tube and orogastric tube in place. NECK: No JVD. LUNGS: Coarse breath sounds. CARDIOVASCULAR: S1, S2 regular. ABDOMEN: Soft, obese, nontender, nondistended. EXTREMITIES: There is a bandage over her right lower extremity cellulitis. LABORATORY DATA: White blood cell count 10.7, hematocrit 36.9, platelet count 387, pH 7.42, pCO2 of 48, pO2 of 58 that was on SIMV rate 24, tidal volume 400, PEEP 5, pressure support 10, FiO2 50%. S odium 140, potassium 4, chloride 103, CO2 30, BUN 22, creatinine 0.8, glucose 98. X-RAY FINDINGS: No chest x-ray was done today. ASSESSMENT: 1. Septic shock from Proteus mirabilis. 2. Acute respiratory failure requiring mechanical ventilation. 3. Probable underlying sleep apnea. PLAN: 1. The patient's infection is sensitive to Zosyn - that will be continued. 2. Decreases mechanical ventilation rate, but no plans for extubation at this time. 3. Start Reglan for elevated gastric residuals. 4. Consider starting tube feeds tomorrow if she continues to need intubation. The above encompassed 35 minutes critical care time.
[2016-11-18] MEDS ORDERED: Pantoprazole 40 MG VIAL IVP SCH (12:00)
[2016-11-18] MEDS: Lorazepam 2 MG/ML VIAL SLOW IVP PRN ×2 (12:31→15:46)
[2016-11-18] MEDS: Vancomycin HCl 1.75 GM in Sodium Chloride 0.9% 500 ML IVPB SCH ×2 (12:40→23:34)
--- NOTE | 2016-11-18 16:36 | EKG ---
Test Reason : Blood Pressure : / mmHG Vent. Rate : 099 BPM Atrial Rate : 099 BPM P-R Int : 154 ms QRS Dur : 080 ms QT Int : 360 ms P-R-T Axes : 061 086 032 degrees QTc Int : 462 ms Normal sinus rhythm Cannot rule out Anterior infarct , age undetermined Abnormal ECG When compared with ECG of 13-AUG-2003 18:19, Questionable change in QRS axis Confirmed by TERRELL HARRELL, SMadonna ([id number]) on 11/18/2016 4:35:40 PM Referred By: CAITLYN Confirmed By:DR. Bryan TEJADA MD
[2016-11-18] MEDS: Nicotine 14 MG PATCH TD SCH (21:11)
[2016-11-19] MEDS: Propofol 1,000 MG/100 ML VIAL IV PRN ×7 (01:55→22:14)
[2016-11-19 03:42] LABS: #Eosinphils 0.1 thou/uL (0.0-0.7); #Lymphocytes 1.7 thou/uL (1.20-3.40); #Monocytes 0.8 thou/uL (0.11-0.59); #Neutrophils 5.3 thou/uL (1.40-6.50); %Basophils 0.3 % (0.0-1.0); %Eosinophils 0.8 % (0.0-10.0); %Lymphocytes 21.9 % (21.0-51.0); %Monocytes 10.3 % (0.0-10.0); Hematocrit 34.8 % (36.0-47.0); Mean Platelet Volume 7.6 fL (7.4-10.4); Red Blood Cell (RBC) Count 4.04 mill/uL (4.20-5.40); White Blood Cell (WBC) Count 7.9 thou/uL (4.8-10.8)
[2016-11-19 03:44] LABS: Anion Gap 12 mmol/L (10-20); BUN (Urea Nitrogen) 21 mg/dL (7.0-18.7); Calc. Creatinine Clearance 244 mL/min (70-130); Calcium 8.6 mg/dL (7.8-10.44); Carbon Dioxide 31 mmol/L (22-29); Chloride 104 mmol/L (98-107); Estimated GFR-MDRD 82
[2016-11-19] MEDS: TAZOBACTAM IVPB SCH ×4 (04:59→21:26)
[2016-11-19] MEDS: SODIUM CHLORIDE IVPB SCH ×4 (04:59→21:26)
[2016-11-19] MEDS: PIPERACILLIN IVPB SCH ×4 (04:59→21:26)
[2016-11-19] MEDS: ADMIXTURE FEE IVPB SCH ×4 (04:59→21:26)
[2016-11-19] MEDS: Enoxaparin Sodium 40 MG/0.4 ML SYRINGE SC SCH (05:31)
--- NOTE | 2016-11-19 07:23 | PDOC.FM ---
- Subjective Subjective: intubated & sedated. no acute overnight events. night RN endorses increase in weeping in legs. urinary sediment in benitez. - Objective MAR Reviewed: Yes Vital Signs & Weight: Vital Signs (12 hours) Temp Pulse Resp BP Pulse Ox 11/19/16 07:00 98.9 F 11/19/16 06:48 82 127/68 11/19/16 06:00 19 11/19/16 04:00 98.3 F 23 H 11/19/16 02:14 88 19 97 11/19/16 02:00 18 11/19/16 00:00 98.9 F 20 11/18/16 22:00 17 11/18/16 21:36 87 23 H 97 11/18/16 20:00 98.8 F 89 17 95 Weight Admit Weight 166.468 kg Weight 168.6 kg Most Recent Monitor Data Heart Rate from ECG 88 NIBP 148/74 NIBP BP-Mean 99 Respiration from ECG 22 SpO2 97 I&O: 11/18/16 11/19/16 11/20/16 06:59 06:59 06:59 Intake Total 3659 3905 Output Total 2595 1775 45 Balance 1064 2130 -45 Result Diagrams: 11/19/16 03:11 11/19/16 03:11 EKG Reviewed by me: Yes Radiology Reviewed by me: Yes (poor penetration, but possible sm right pleural effusion) <Deepti Abdi - Last Filed: 11/19/16 07:21> - Objective Vital Signs & Weight: Vital Signs (12 hours) Temp Pulse Resp BP Pulse Ox 11/19/16 10:00 26 H 11/19/16 08:15 127/68 11/19/16 08:00 98.9 F 90 35 H 92 L 11/19/16 07:34 127/68 11/19/16 07:00 98.9 F 11/19/16 06:48 82 127/68 11/19/16 06:00 19 11/19/16 04:00 98.3 F 23 H 11/19/16 02:14 88 19 97 11/19/16 02:00 18 11/19/16 00:00 98.9 F 20 Weight Admit Weight 166.468 kg Weight 168.6 kg Most Recent Monitor Data Heart Rate from ECG 83 NIBP 109/44 NIBP BP-Mean 72 Respiration from ECG 6 SpO2 91 I&O: 11/18/16 11/19/16 11/20/16 06:59 06:59 06:59 Intake Total 3659 3905 150 Output Total 2595 1775 190 Balance 1064 2130 -40 Result Diagrams: 11/19/16 03:11 11/19/16 03:11 <RosalieSven Holly - Last Filed: 11/19/16 11:05> Phys Exam - Physical Examination Constitutional: NAD (intubated & sedated) HEENT: PERRLA, moist MMs, oral pharynx no lesions Neck: supple faint crackle in right lung base, otherwise clear Cardiovascular: RRR, no significant murmur Gastrointestinal: soft, non-tender, positive bowel sounds Musculoskeletal: edema present (1+ pitting to b/l LE) Deviation from normal: wrapped right calf w/ weeping, wound vac applied to right foot -: intertrigo of abd pannus <Deepti Abdi - Last Filed: 11/19/16 07:21> Dx/Plan (1) Acute respiratory failure with hypoxia and hypercapnia Code(s): J96.01 - ACUTE RESPIRATORY FAILURE WITH HYPOXIA; J96.02 - ACUTE RESPIRATORY FAILURE WITH HYPERCAPNIA Status: Acute Plan: Intubated awake pre-operatively on 11/17 for anticipated difficult airway and inability to tolerate and improve on BiPap. pH improved and CO2 decreasing. cont to wean vent & sedation prior to extubation. Likely underlying COPD and/or WALTER/Pickwickian syndrome in the setting of chronic respiratory failure. (2) Chronic hypercapnic respiratory failure Code(s): J96.12 - CHRONIC RESPIRATORY FAILURE WITH HYPERCAPNIA Status: Chronic Plan: Likely underlying COPD and/or WALTER/Pickwickian syndrome in the setting of chronic respiratory failure. Recommend smoking cessation & outpt sleep study. (3) Proteus mirabilis infection Code(s): B96.4 - PROTEUS (MIRABILIS) (MORGANII) CAUSING DIS CLASSD ELSWHR Status: Acute (4) Necrosis of toe Code(s): I96 - GANGRENE, NOT ELSEWHERE CLASSIFIED Status: Acute Plan: POD#2 s/p right 4th phalanx & MT amputation with debridement by Dr. Valencia. Infection improving. On vanc & zosyn for broad-spectrum coverage, however currently WCx growing proteus, serratia & group G strep. pending anaerobic cx. Consider d/c vanc today, however cellulitis still present and concern for MRSA. Bcx from outside ER show NGTD. Cont wound vac- will need outpt assistance. (5) Abscess of right leg Code(s): L02.415 - CUTANEOUS ABSCESS OF RIGHT LOWER LIMB Status: Acute Plan: POD#2 s/p right 4th phalanx & MT amputation with debridement. Infection improving on Vanc & zosyn. S/P WCx in ED & intra-operatively. (6) Cellulitis of right lower extremity Code(s): L03.115 - CELLULITIS OF RIGHT LOWER LIMB Status: Acute Plan: Vanc & Zosyn. Ulcer eschar also sharply debrided 11/[address] Valencia. (7) Hypertension Code(s): I10 - ESSENTIAL (PRIMARY) HYPERTENSION Status: Acute Qualifiers: Hypertension type: unspecified Qualified Code(s): I10 - Essential (primary ) hypertension Plan: HTN urgency resolved. BPs wnl on sedation. Will restart meds when extubated. (8) DM2 (diabetes mellitus, type 2) Status: Chronic Qualifiers: Diabetes mellitus complication status: with unspecified complications Diabetes mellitus shelter insulin use: without shelter use Qualified Code( s): E11.8 - Type 2 diabetes mellitus with unspecified complications Plan: SSI currently. Will need to go home on lisinopril & metformin. (9) HLD (hyperlipidemia) Code(s): E78.5 - HYPERLIPIDEMIA, UNSPECIFIED Status: Chronic Qualifiers: Hyperlipidemia type: unspecified Qualified Code(s): E78.5 - Hyperlipidemia , unspecified Plan: Low HDL, no indication for statin at this time. pending echo to r/o CHF. (10) Morbid obesity Code(s): E66.01 - MORBID (SEVERE) OBESITY DUE TO EXCESS CALORIES Status: Chronic (11) Lymphedema of both lower extremities Code(s): I89.0 - LYMPHEDEMA, NOT ELSEWHERE CLASSIFIED Status: Chronic Plan: Up 3 kg from admission- questionable h/o CHF upon admission. Pending echo read. Give low dose lasix this am. (12) Tobacco abuse Code(s): Z72.0 - TOBACCO USE Status: Chronic Plan: nicotine TD patch. cancer genetic counselor re: smoking cessation. <Deepti Abdi - Last Filed: 11/19/16 07:21> Attending Addendum - Attending Addendum I personally evaluated the patient and discussed the management with Dr. Abdi. I agree with the History, Examination, Assessment and Plan documented above with any addition or exceptions noted below. Patient improved, hoping for extubation today. C&S resulted, will continue with both abx for now to treat infection and cellulitis. Reglan has been started to decrease gastric residuals. If not extubated today, will need tube feeds. <Sven Wiggins - Last Filed: 11/19/16 11:05>
[2016-11-19] MEDS: Carvedilol 6.25 MG TAB PO SCH ×2 (07:34→16:12)
[2016-11-19 07:52] LABS: Modified Allen's Test POSITIVE; Sodium 142 mmol/L (135-148); Vent YES
[2016-11-19 07:53] LABS: Mechanical Tidal Volume 400 ml; Mode SIMV/PSV; Pressure Support 10 cmH2O
[2016-11-19] MEDS: Docusate 100 MG CAP PO SCH ×2 (08:15→20:38)
[2016-11-19] MEDS: Lisinopril 5 MG TAB PER TUBE SCH (08:15)
[2016-11-19 08:21] LABS: Bilirubin Negative (Negative); Blood, Urine Large (Negative); Glucose, Urine (Dipstick) Negative (Negative); Ketone, Urine Negative (Negative); Nitrite Negative (Negative); Protein, Urine (Dipstick) 30 mg/dL (Neg-Trace)
[2016-11-19 08:23] LABS: Bacteria/HPF None Seen HPF (None Seen); RBC/HPF GREATER THAN 50-TNTC HPF (0-3)
[2016-11-19 08:37] LABS: Hyaline Casts/LPF 0-3 HYALINE CAST LPF (0-3 Hyaline); Transitional Epithelial 0-3 HPF (0-3); Yeast-All Forms None Seen HPF (None Seen)
[2016-11-19] MEDS: Metoclopramide HCl 10 MG/2 ML VIAL IVP SCH ×2 (09:00→15:09)
[2016-11-19] MEDS ORDERED: Pancrelipase DR 12000 1 CAP FS PRN (09:32)
[2016-11-19] MEDS ORDERED: Sodium Bicarbonate Tab 325 MG TAB PER TUBE PRN (09:32)
[2016-11-19] MEDS ORDERED: Furosemide 40 MG/4 ML VIAL SLOW IVP SCH (10:00)
--- NOTE | 2016-11-19 10:50 | PRG ---
DATE OF SERVICE: 11/19/2016 Thirty-five minutes of critical care. SUBJECTIVE: Ms. Oliveira remains intubated on mechanical ventilation. She is desperate for the tub e to be removed. PHYSICAL EXAMINATION: VITAL SIGNS: Temperature is 98.9, pulse 92, blood pressure 148/90, 24-hour intake 3907, output 1775 , weight 371 pounds. HEENT: Unremarkable. NECK: No JVD. LUNGS: Coarse breath sounds. CARDIAC: S1 and S2 regular. ABDOMEN: Soft, morbidly obese. EXTREMITIES: She has a wrap around her right leg. She has a wound VAC on her right fourth toe wher e it was amputated. LABORATORY DATA: White blood cell count 7.9, hemoglobin 10, hematocrit 34, platelet count 390, pH 7 .31, pCO2 of 66, pO2 of 70 on SIMV rate 8, tidal volume 400, PEEP 5, pressure support 10, FiO2 50%. Sodium 143, potassium 3.9, chloride 104, CO2 31, BUN 21, creatinine 0.7, glucose 96. Chest x-ray shows diffuse pulmonary edema. ASSESSMENT: 1. Septic shock secondary to necrotic right fourth toe. 2. Cellulitis. 3. Acute respiratory failure requiring mechanical ventilation. 4. Probable underlying sleep apnea. 5. Pulmonary edema. PLAN: 1. Begin to diurese the patient. 2. I do not think she is ready to be extubated yet. 3. Continue the IV antibiotics. 4. Initiate enteral tube feeds.
[2016-11-19] MEDS: Vancomycin HCl 1.75 GM in Sodium Chloride 0.9% 500 ML IVPB SCH (11:00)
[2016-11-19] MEDS ORDERED: Metoclopramide HCl 10 MG/10 ML UDCUP PER TUBE SCH (11:30)
--- NOTE | 2016-11-19 11:51 | RAD ---
RADIOGRAPH CHEST 1 VIEW: Date: 11/19/2016 Time: 4:35 a.m. HISTORY: A 51-year-old female in respiratory failure. COMPARISON: 11/17/2016 at 1:51 p.m. FINDINGS: No change in life support lines. Interval development of indistinctness of portions of the bilatera l hemidiaphragms, especially the left. Interval development of diffuse hazy parenchymal densities b ilaterally, especially at the lung bases. No pneumothorax identified. IMPRESSION: 1. Interval development of pulmonary interstitial edema. 2. Interval development of possible small bilateral pleural effusions. 3. No change in life support lines. JASIEL [] POS: JAMEY
[2016-11-19] MEDS ORDERED: Pantoprazole 40 MG VIAL IVP SCH (17:30)
[2016-11-19] MEDS: Nicotine 14 MG PATCH TD SCH (20:38)
[2016-11-19] MEDS: Lorazepam 2 MG/ML VIAL SLOW IVP PRN (20:45)
[2016-11-19 23:19] LABS: Vancomycin, Trough 16.8 ug/mL
[2016-11-20] MEDS: Metoclopramide HCl 10 MG/2 ML VIAL IVP SCH ×2 (00:25→11:27)
[2016-11-20] MEDS: Vancomycin HCl 1.75 GM in Sodium Chloride 0.9% 500 ML IVPB SCH (00:25)
[2016-11-20] MEDS: Propofol 1,000 MG/100 ML VIAL IV PRN ×2 (01:37→04:40)
[2016-11-20] MEDS: SODIUM CHLORIDE IVPB SCH ×2 (04:05→09:53)
[2016-11-20] MEDS: ADMIXTURE FEE IVPB SCH ×2 (04:05→09:53)
[2016-11-20] MEDS: TAZOBACTAM IVPB SCH ×2 (04:05→09:53)
[2016-11-20] MEDS: PIPERACILLIN IVPB SCH ×2 (04:05→09:53)
[2016-11-20 04:37] LABS: #Eosinphils 0.1 thou/uL (0.0-0.7); #Lymphocytes 1.5 thou/uL (1.20-3.40); #Monocytes 0.7 thou/uL (0.11-0.59); #Neutrophils 6.3 thou/uL (1.40-6.50); %Basophils 0.3 % (0.0-1.0); %Lymphocytes 17.5 % (21.0-51.0); %Monocytes 8.3 % (0.0-10.0); Hematocrit 35.5 % (36.0-47.0); Mean Platelet Volume 7.6 fL (7.4-10.4); Red Blood Cell (RBC) Count 4.08 mill/uL (4.20-5.40); White Blood Cell (WBC) Count 8.6 thou/uL (4.8-10.8)
[2016-11-20 04:38] LABS: Anion Gap 13 mmol/L (10-20); BUN (Urea Nitrogen) 20 mg/dL (7.0-18.7); Calc. Creatinine Clearance 259 mL/min (70-130); Calcium 8.8 mg/dL (7.8-10.44); Carbon Dioxide 32 mmol/L (22-29); Chloride 102 mmol/L (98-107); Estimated GFR-MDRD 89
[2016-11-20] MEDS: Enoxaparin Sodium 40 MG/0.4 ML SYRINGE SC SCH (05:09)
[2016-11-20] MEDS: Labetalol HCl 100 MG/20 ML VIAL SLOW IVP PRN (07:33)
[2016-11-20 07:40] LABS: Oxyhemoglobin 94.5 % (94.0-97.0); Sodium 142 mmol/L (135-148)
[2016-11-20 07:43] LABS: Mechanical Tidal Volume 400 ml; Mode SIMV; Modified Allen's Test POSITIVE; Pressure Support 10 cmH2O; Vent YES
[2016-11-20] MEDS: Docusate 100 MG CAP PO SCH ×2 (08:12→20:20)
--- NOTE | 2016-11-20 08:43 | PRG ---
DATE OF SERVICE: 11/20/2016 Thirty-five minutes critical care time. The patient remains intubated on mechanical ventilation. She is awake, alert, follows commands. PHYSICAL EXAMINATION: VITAL SIGNS: Temperature 98.6, pulse 84, respirations 22, O2 sat 99% on mechanical ventilation, bl ood pressure ranging between systolic 144 and systolic to 213. 24 hour intake is 3232, output 3390 . HEENT: Unremarkable. NECK: No JVD. LUNGS: Coarse rhonchi. CARDIOVASCULAR: S1, S2 regular. ABDOMEN: Morbidly obese. EXTREMITIES: She has a bandage over her right fourth toe. LABORATORY DATA: Sodium 143, potassium 3.9, chloride 102, CO2 30, BUN 20, creatinine 0.7, glucose 8 9. White blood cell count 8.6, hematocrit 35.5, platelet count 375. Blood gas pH 7.33, pCO2 66, pO 2 78 on SIMV rate 8, tidal volume 400, PEEP 5, pressure support 10, 50%. Chest x-ray demonstrates n o significant change. ASSESSMENT: 1. Sepsis from polymicrobial infection of the right foot. 2. Acute respiratory failure requiring mechanical ventilation. 3. Diabetes mellitus. 4. Obesity. 5. Likely obesity hypoventilation syndrome. PLAN: 1. We discontinued sedation and extubated the patient. So far she is doing reasonably well on a Ve ntimask. 2. Continue IV antibiotics. 3. Continue wound care.
[2016-11-20] MEDS ORDERED: Pantoprazole 40 MG VIAL IVP SCH (09:00)
--- NOTE | 2016-11-20 09:29 | RAD ---
PORTABLE CHEST: COMPARISON: 11/19/16 study. HISTORY: Respiratory distress. FINDINGS: Endotracheal and NG tubes and right jugular line are unchanged in position. Heart size is enlarged. Mild vascular engorgement is again noted. The perihilar markings are slightly decreased as compar ed to the prior exam. IMPRESSION: Suggestion of some slight improvement to pulmonary edema changes. POS: CET
[2016-11-20] MEDS: Carvedilol 6.25 MG TAB PO SCH ×2 (09:39→16:32)
[2016-11-20] MEDS ORDERED: CCU Electrolyte Replacement 1 EACH FS ONE (09:40)
[2016-11-20] MEDS: Lisinopril 5 MG TAB PER TUBE SCH (09:40)
[2016-11-20] MEDS ORDERED: CCU Electrolyte Replacement 1 EACH FS SCH (09:41)
[2016-11-20] MEDS ORDERED: Magnesium Oxide 400 MG TAB PO PRN ×2 (09:47)
[2016-11-20] MEDS ORDERED: Potassium Phosphate 12 MMOL in Sodium Chloride 0.9% 250 ML 250 ML IV PRN (09:47)
[2016-11-20] MEDS ORDERED: Potassium Chloride 20 MEQ TAB PO PRN (09:47)
[2016-11-20] MEDS ORDERED: Potassium Phosphate 15 MMOL in Sodium Chloride 0.9% 250 ML 250 ML IV PRN (09:47)
[2016-11-20] MEDS ORDERED: Potassium Chloride 40 MEQ in Premix Bag 1 BAG IVPB PRN (09:47)
[2016-11-20] MEDS ORDERED: CCU ELECTROLYTE REPLACEMENT PROTOCOL FS PRN (09:47)
[2016-11-20] MEDS ORDERED: Magnesium 2 GM/NS 0.9% 100 ML 2 GM in Premix Bag 1 BAG IVPB PRN (09:47)
[2016-11-20] MEDS ORDERED: Potassium Phosphate 9 MMOL in Sodium Chloride 0.9% 100 ML IVPB PRN (09:47)
[2016-11-20] MEDS ORDERED: Potassium Chloride 40 MEQ in Sodium Chloride 0.9% 250 ML 250 ML IVPB PRN (09:47)
--- NOTE | 2016-11-20 11:11 | PDOC.FM ---
Addendum entered and electronically signed by Dean Dunbar MD 11/20/16 11:49: 2. BNP indeterminate, await echo. Alb is 3.1, low, may play a part in her ansarca. Will continue monitor I/O Addendum entered and electronically signed by Dean Dunbar MD 11/20/16 11:41: 1. Consider that her hypertension is from nicotine withdrawal. Patient has stains on her fingers and heavy tobacco use. Increase her nicotine patch to 21 Original Note: - Subjective Subjective: Patient extubated this morning, BP was noted to elevate at that time. She says she is feeling much better at this time. - Objective MAR Reviewed: Yes Vital Signs & Weight: Vital Signs (12 hours) Temp Pulse Resp BP Pulse Ox 11/20/16 10:55 93 26 H 95 11/20/16 09:40 81 11/20/16 09:39 213/88 H 11/20/16 07:45 81 24 H 88 L 11/20/16 07:33 86 213/88 H 11/20/16 07:29 86 213/88 H 11/20/16 07:00 98.6 F 11/20/16 06:00 33 H 11/20/16 04:00 98.9 F 27 H 11/20/16 02:38 79 24 H 97 11/20/16 02:00 19 11/20/16 00:00 98.7 F 20 Weight Admit Weight 166.468 kg Weight 167.3 kg Most Recent Monitor Data Heart Rate from ECG 96 NIBP 194/95 NIBP BP-Mean 127 Respiration from ECG 23 SpO2 93 I&O: 11/19/16 11/20/16 11/21/16 06:59 06:59 06:59 Intake Total 3905 3232 60.4 Output Total 1775 3390 240 Balance 2130 -158 -179.6 Result Diagrams: 11/20/16 04:02 11/20/16 04:02 <Dean Dunbar - Last Filed: 11/20/16 11:10> - Objective Vital Signs & Weight: Vital Signs (12 hours) Temp Pulse Resp BP Pulse Ox 11/20/16 12:00 97.9 F 11/20/16 10:55 93 26 H 95 11/20/16 09:40 81 11/20/16 09:39 213/88 H 11/20/16 08:00 98.6 F 81 15 11/20/16 07:45 81 24 H 88 L 11/20/16 07:33 86 213/88 H 11/20/16 07:29 86 213/88 H 11/20/16 07:00 98.6 F 11/20/16 06:00 33 H 11/20/16 04:00 98.9 F 27 H 11/20/16 02:38 79 24 H 97 11/20/16 02:00 19 Weight Admit Weight 367 lb Weight 368 lb 13.334 oz Most Recent Monitor Data Heart Rate from ECG 91 NIBP 183/86 NIBP BP-Mean 116 Respiration from ECG 27 SpO2 85 I&O: 11/19/16 11/20/16 11/21/16 06:59 06:59 06:59 Intake Total 3905 3232 60.4 Output Total 1775 3390 415 Balance 2130 -158 -354.6 Result Diagrams: 11/20/16 04:02 11/20/16 04:02 <Omar Bejarano - Last Filed: 11/20/16 13:45> Phys Exam - Physical Examination Constitutional: NAD HEENT: moist MMs Neck: no nodes, supple Mild wheezing and rhonchi Cardiovascular: RRR, no significant murmur Gastrointestinal: non-tender Musculoskeletal: edema present ansarca at abd, pannus intertrigo, right toe amputation Neurological: non-focal, moves all 4 limbs Psychiatric: normal affect <Dena Dunbar M - Last Filed: 11/20/16 11:10> Dx/Plan (1) Acute respiratory failure with hypoxia and hypercapnia Code(s): J96.01 - ACUTE RESPIRATORY FAILURE WITH HYPOXIA; J96.02 - ACUTE RESPIRATORY FAILURE WITH HYPERCAPNIA Status: Acute Plan: Extubated today, satting low 90 on 15L O2 via max., will monitor and wean. Currently being worked up as possible heart failure. (2) Abscess of right leg Code(s): L02.415 - CUTANEOUS ABSCESS OF RIGHT LOWER LIMB Status: Acute Plan: Likely will de-escalate to levaquin based on sensitivity. Kidney function is good, will monitor as patient transitioned to levaquin. Continue wound care. (3) Hypertension Code(s): I10 - ESSENTIAL (PRIMARY) HYPERTENSION Status: Acute Qualifiers: Hypertension type: unspecified Qualified Code(s): I10 - Essential (primary ) hypertension Plan: BP was in upper 150, has recently elevated with extubation. - Plan to titrate bp meds. (4) Necrosis of toe Code(s): I96 - GANGRENE, NOT ELSEWHERE CLASSIFIED Status: Acute Plan: POD #3 - Plant is to follow up with surg rec. Will adjust abx as mentioned above. Wound care consulted. (5) Chronic hypercapnic respiratory failure Code(s): J96.12 - CHRONIC RESPIRATORY FAILURE WITH HYPERCAPNIA Status: Chronic Plan: - Likely a chronic problem with elevated bicarb in 30's. Patient also has obesity, possible WALTER, thought not diagnosised. - Plan is to continue with O2 supplementation. Patient did indicate she doesn't use O2 at baseline today. - May need O2 at home. (6) DM2 (diabetes mellitus, type 2) Status: Chronic Qualifiers: Diabetes mellitus complication status: with unspecified complications Diabetes mellitus ferry terminal agent insulin use: without residential use Qualified Code( s): E11.8 - Type 2 diabetes mellitus with unspecified complications Plan: A1c of 6.4. Her glucose during this stay has been acceptable - Will keep on SSI. Consider adding atorvastin 40, and metformin on discharge. (7) HLD (hyperlipidemia) Code(s): E78.5 - HYPERLIPIDEMIA, UNSPECIFIED Status: Chronic Qualifiers: Hyperlipidemia type: unspecified Qualified Code(s): E78.5 - Hyperlipidemia , unspecified (8) Lymphedema of both lower extremities Code(s): I89.0 - LYMPHEDEMA, NOT ELSEWHERE CLASSIFIED Status: Chronic Plan: - Will get echo, patient had 20 of lasix yesterday - Plan today is discontinue IV fluid, lasix. Will still get echo. (9) Morbid obesity Code(s): E66.01 - MORBID (SEVERE) OBESITY DUE TO EXCESS CALORIES Status: Chronic Plan: - Oil Well Service Unit Operator patient on discharge (10) Tobacco abuse Code(s): Z72.0 - TOBACCO USE Status: Chronic Plan: - Oil Well Service Unit Operator patient on discharge. <Dean Dunbar - Last Filed: 11/20/16 11:10> Attending Addendum - Attending Addendum I personally evaluated the patient and discussed the management with Dr. [Bettina] I agree with the History, Examination, Assessment and Plan documented above with any addition or exceptions noted below. pt is improved but far from discharge. i believe chief issue is obesity hypoventaltion syndrome with rt heart failure. this is complicated by infection of skin and foot for which she has had surgery and is on antibiotics. she is just extubated so we need to be she can take things orally and we also need to tx her htn. <Omar Bejarano - Last Filed: 11/20/16 13:45>
[2016-11-20] MEDS ORDERED: Carvedilol 6.25 MG TAB PO SCH (12:30)
[2016-11-20] MEDS: Gabapentin 300 MG CAP PO SCH ×2 (13:28→20:20)
[2016-11-20] MEDS: Morphine Sulfate 2 MG/ML SYRINGE SLOW IVP PRN ×4 (13:28→23:39)
--- NOTE | 2016-11-20 20:17 | PRG ---
DATE OF SERVICE: 11/20/2016 SUBJECTIVE: Feeling better. She has been extubated, oriented, pain in the right lower extremity is less, no dyspnea, no chest pain, no abdominal pain, still with a Hunter catheter in place. Temperat ure t-max 99.8. The right leg with a decrease in the amount of erythema, still the area of epidermo lysis in the lateral aspect. The fourth toe of right foot has been removed. LABORATORY DATA: With a white cell count 8.6, hemoglobin 10.3, platelets 375, creatinine 0.7. Micr obiology with Serratia, group G strep Proteus mirabilis, the Serratia with a broad susceptibility pr ofile and a Proteus mirabilis with a broad susceptibility profile as well. ASSESSMENT AND DISCUSSION: Type 2 diabetes with chronic smoking and hypoxic hypercapnic respiratory failure, sepsis, right lower extremity cellulitis with right fourth toe necrosis, status post amput ation. The patient has a polymicrobial infection with 2 different gram negatives and group G Strept ococcus. Eventually can be transitioned to oral Keflex and ciprofloxacin for discharge planning whe never the inflammatory process subsides further. Thus far, it does not appear that she will turn ou t to have been bacteremic.
--- NOTE | 2016-11-20 21:53 | PRG ---
DATE OF SERVICE: 11/20/2016 LOCATION: The patient is located in . SUBJECTIVE: Ms. Oliveira is doing well today. She is extubated this morning. She is alert and sharp sed her hand to shake my hand to thank me for her care. Her right foot wound looks good and her rig ht foot wound VAC is in place. Her leg wound looks stable. There is skin excoriation, but there is no underlying fluctuance. The redness seems to be improved. Edema is less with her diuresis. At this point, we will continue wound care, keep the weight off her heels to prevent heel decubitus and I will see her wound on her foot from a toe amputation the next VAC change.
[2016-11-21] MEDS: Labetalol HCl 100 MG/20 ML VIAL SLOW IVP PRN ×2 (00:07→04:42)
[2016-11-21] MEDS: Chloraseptic Spray 180 ml Bottle PO PRN ×2 (01:27→06:24)
[2016-11-21] MEDS: Morphine Sulfate 2 MG/ML SYRINGE SLOW IVP PRN ×6 (01:37→20:21)
[2016-11-21 04:45] LABS: #Eosinphils 0.1 thou/uL (0.0-0.7); #Lymphocytes 1.6 thou/uL (1.20-3.40); #Monocytes 0.8 thou/uL (0.11-0.59); #Neutrophils 6.2 thou/uL (1.40-6.50); %Basophils 0.6 % (0.0-1.0); %Eosinophils 1.7 % (0.0-10.0); %Lymphocytes 17.9 % (21.0-51.0); %Monocytes 8.6 % (0.0-10.0); Hematocrit 36.3 % (36.0-47.0); Mean Platelet Volume 7.4 fL (7.4-10.4); Red Blood Cell (RBC) Count 4.12 mill/uL (4.20-5.40); White Blood Cell (WBC) Count 8.7 thou/uL (4.8-10.8)
[2016-11-21 05:11] LABS: Anion Gap 10 mmol/L (10-20); BUN (Urea Nitrogen) 17 mg/dL (7.0-18.7); Calc. Creatinine Clearance 268 mL/min (70-130); Calcium 9.2 mg/dL (7.8-10.44); Carbon Dioxide 35 mmol/L (22-29); Chloride 99 mmol/L (98-107); Estimated GFR-MDRD Greater than 90
--- NOTE | 2016-11-21 07:39 | PDOC.FM ---
- Subjective Subjective: Patient had some pain last night in her right leg, needingf morphine for pain control. It coincide with elevate BP. Otherwise, patient tolerated breathing with mask. While in room, patient was placed on 3.5 L by NC and had O2 saturation at 93%. She says she feels much better and is tolerating pudding. - Objective MAR Reviewed: Yes Vital Signs & Weight: Vital Signs (12 hours) Temp Pulse Resp BP Pulse Ox 11/21/16 07:00 98.3 F 11/21/16 06:49 81 22 H 93 L 11/21/16 04:42 90 193/72 H 11/21/16 04:00 98.4 F 11/21/16 00:07 90 11/21/16 00:00 98.0 F 11/20/16 22:35 90 18 90 L 11/20/16 20:00 97.6 F 83 24 H 90 L Weight Admit Weight 166.468 kg Weight 166.8 kg Most Recent Monitor Data Heart Rate from ECG 86 NIBP 125/58 NIBP BP-Mean 69 Respiration from ECG 16 SpO2 94 I&O: 11/20/16 11/21/16 11/22/16 06:59 06:59 06:59 Intake Total 3232 2808.4 Output Total 3390 1065 30 Balance -158 1743.4 -30 Result Diagrams: 11/21/16 04:20 11/21/16 04:20 <BettinaDean M - Last Filed: 11/21/16 07:37> - Objective Vital Signs & Weight: Vital Signs (12 hours) Temp Pulse Resp BP BP Pulse Ox 11/21/16 11:12 98.7 F 82 24 H 92 L 11/21/16 10:50 98.7 F 82 24 H 135/78 92 L 11/21/16 10:21 75 22 H 92 L 11/21/16 08:00 98.3 F 81 19 85 L 11/21/16 07:00 98.3 F 11/21/16 06:49 81 22 H 93 L 11/21/16 04:42 90 193/72 H 11/21/16 04:00 98.4 F 11/21/16 00:07 90 11/21/16 00:00 98.0 F Weight Admit Weight 367 lb Weight 367 lb 11.697 oz Most Recent Monitor Data Heart Rate from ECG 73 NIBP 138/69 NIBP BP-Mean 109 Respiration from ECG 24 SpO2 87 I&O: 11/20/16 11/21/16 11/22/16 06:59 06:59 06:59 Intake Total 3232 2808.4 51.4 Output Total 3390 1065 135 Balance -158 1743.4 -83.6 Result Diagrams: 11/21/16 04:20 11/21/16 04:20 <Omar Bejarano L - Last Filed: 11/21/16 11:39> Phys Exam - Physical Examination Constitutional: NAD HEENT: moist MMs Wearing mask Neck: no nodes Wheezing present bilat, air flow present, difficult auscultation Cardiovascular: RRR Gastrointestinal: soft, non-tender Ansarca Edema Neurological: non-focal, moves all 4 limbs Psychiatric: normal affect Deviation from normal: WOund vac on right foot, decreasing erythema <Dean Dunbar M - Last Filed: 11/21/16 07:37> Dx/Plan (1) Acute respiratory failure with hypoxia and hypercapnia Code(s): J96.01 - ACUTE RESPIRATORY FAILURE WITH HYPOXIA; J96.02 - ACUTE RESPIRATORY FAILURE WITH HYPERCAPNIA Status: Acute Plan: Extubated today, satting low 90 on 15L O2 via max., will monitor and wean. Currently being worked up as possible heart failure. 11/21 - Extubated, sating well, O2 requirement decreased to 3.5 L on NC - Patient is more mentally awake then yesterday. - Plan to continue to wean O2, transfer to floor, advise on tobacco cessation (2) Abscess of right leg Code(s): L02.415 - CUTANEOUS ABSCESS OF RIGHT LOWER LIMB Status: Acute Plan: Likely will de-escalate to levaquin based on sensitivity. Kidney function is good, will monitor as patient transitioned to levaquin. Continue wound care. 11/21 - Improving, but causes pain for patient. Will continue pain control. Will try adding NSAID - Surg feels wound is healing well, will continue to follow recs - ID recs cipro and keflex on discharge. (3) Hypertension Code(s): I10 - ESSENTIAL (PRIMARY) HYPERTENSION Status: Acute Qualifiers: Hypertension type: unspecified Qualified Code(s): I10 - Essential (primary ) hypertension Plan: BP was in upper 150, has recently elevated with extubation. - Plan to titrate bp meds. 11/21 - BP was elevated overnight, was controlled with prn labetalol - Increasing lisinopril today to 20. - Continue lasix and coreg. (4) Necrosis of toe Code(s): I96 - GANGRENE, NOT ELSEWHERE CLASSIFIED Status: Acute Plan: POD #3 - Plant is to follow up with surg rec. Will adjust abx as mentioned above. Wound care consulted. 11/21 - POD #3, follow with Surg recs, but it is improving based on surg's impression. - COntinue pain and current abx (5) Chronic hypercapnic respiratory failure Code(s): J96.12 - CHRONIC RESPIRATORY FAILURE WITH HYPERCAPNIA Status: Chronic Plan: - Likely a chronic problem with elevated bicarb in 30's. Patient also has obesity, possible WALTER, thought not diagnosised. - Plan is to continue with O2 supplementation. Patient did indicate she doesn't use O2 at baseline today. - May need O2 at home. 11/21 - Patient has 35 year smoking history with wheezing on exam. - Chronic issue with elevated bicarb. Treatment with breathing treatment and supplemental oxygen. (6) DM2 (diabetes mellitus, type 2) Status: Chronic Qualifiers: Diabetes mellitus complication status: with unspecified complications Diabetes mellitus shelter insulin use: without exterminator use Qualified Code( s): E11.8 - Type 2 diabetes mellitus with unspecified complications Plan: A1c of 6.4. Her glucose during this stay has been acceptable - Will keep on SSI. Consider adding atorvastin 40, and metformin on discharge. 11/21 - Continue SSI. Add atorvastatin. (7) HLD (hyperlipidemia) Code(s): E78.5 - HYPERLIPIDEMIA, UNSPECIFIED Status: Chronic Qualifiers: Hyperlipidemia type: unspecified Qualified Code(s): E78.5 - Hyperlipidemia , unspecified (8) Lymphedema of both lower extremities Code(s): I89.0 - LYMPHEDEMA, NOT ELSEWHERE CLASSIFIED Status: Chronic Plan: - Will get echo, patient had 20 of lasix yesterday - Plan today is discontinue IV fluid, lasix. Will still get echo. 11/21 - Patient received echo, awaiting read. (9) Morbid obesity Code(s): E66.01 - MORBID (SEVERE) OBESITY DUE TO EXCESS CALORIES Status: Chronic Plan: - Fnps patient on discharge 11/21 - Advance to diet. - shovel mechanic on discharge (10) Tobacco abuse Code(s): Z72.0 - TOBACCO USE Status: Chronic Plan: - Fnps patient on discharge. 11/21 - Increased her nicotine patch to 21 due to extensive smoking - Fnps on discharge <Dean Dunbar - Last Filed: 11/21/16 07:37> Attending Addendum - Attending Addendum I personally evaluated the patient and discussed the management with Dr. [Bettina] I agree with the History, Examination, Assessment and Plan documented above with any addition or exceptions noted below. pt is somewhat improved. lack of funding will make disposition a challenge as she will need wound care and oxygen. we will give her lasix, change to oral abx, increase level of activity and work towards discharge later in the week <Omar eBjarano - Last Filed: 11/21/16 11:39>
[2016-11-21] MEDS: Gabapentin 300 MG CAP PO SCH ×3 (08:06→20:20)
[2016-11-21] MEDS: Nicotine 21 MG PATCH TD SCH (08:07)
[2016-11-21] MEDS: Lisinopril 20 MG TAB PO SCH (08:07)
[2016-11-21] MEDS: Enoxaparin Sodium 40 MG/0.4 ML SYRINGE SC SCH (08:07)
[2016-11-21] MEDS: Carvedilol 6.25 MG TAB PO SCH ×2 (08:07→17:47)
[2016-11-21] MEDS: Docusate 100 MG CAP PO SCH ×2 (08:08→20:20)
--- NOTE | 2016-11-21 08:10 | PRG ---
DATE OF SERVICE: 11/21/2016 The patient feels better, had no acute complaints. PHYSICAL EXAMINATION: VITAL SIGNS: Temperature 98.4, pulse 86, blood pressure 125/58, 24-hour intake 2808, output 1065. HEENT: Unremarkable. NECK: No JVD. CHEST: Fairly clear. CARDIAC: S1 and S2 regular. ABDOMEN: Soft. EXTREMITIES: She has a wound VAC on the right toe. She has a wrap around her right leg. LABORATORY DATA: White blood cell count 8.7, hematocrit 36.3, platelet count 384, sodium 140, potas sium 4, chloride 99, CO2 35, BUN 17, creatinine 0.6, glucose 133. ASSESSMENT: 1. Resolved septic shock. 2. Gangrene of the right toe, now status post amputation. 3. Diabetes mellitus. 4. Obesity. 5. Likely obesity hypoventilation syndrome. PLAN: She can move out to the medical floor. Continue IV antibiotics. Increase physical activity. I would begin to establish a plan as to what she is going to need as an outpatient for antibiotic therapy whether this be IV or oral.
[2016-11-21] MEDS ORDERED: Lisinopril 10 MG TAB PO SCH ×2 (09:00)
--- NOTE | 2016-11-21 09:00 | RAD ---
PORTABLE AP CHEST: Date: 11-21-16 History: On ventilator, follow up evaluation. Comparison: 11-20-16 FINDINGS: Right internal jugular vein central venous catheter is again noted in place and unchanged in positio n. Tip is not visualized. software design analyst leads overlie the region of the central venous catheter. C ardiac silhouette is magnified by projection but does appear mildly enlarged and stable in appearanc e. There is persistent mild elevation of the right hemidiaphragm. There is mild improvement in perih ilar interstitial densities. There is atelectasis again present at the left lung base. No other inte rval change. IMPRESSION: Overall stable chest with suggestion of minimal improvement in perihilar interstitial densities whic h may be related to mild improvement in pulmonary edema. POS: JAMEY
[2016-11-21] MEDS: Fluticasone Propionate Nasal Spray 16 gm Bottle NASAL SCH (09:58)
[2016-11-21] MEDS: Acetaminophen/Codeine 30-300mg Tablet PO PRN (13:35)
[2016-11-22] MEDS: Morphine Sulfate 2 MG/ML SYRINGE SLOW IVP PRN ×5 (00:11→20:50)
[2016-11-22 05:23] LABS: #Eosinphils 0.2 thou/uL (0.0-0.7); #Lymphocytes 1.7 thou/uL (1.20-3.40); #Monocytes 0.9 thou/uL (0.11-0.59); #Neutrophils 6.8 thou/uL (1.40-6.50); %Basophils 0.5 % (0.0-1.0); %Eosinophils 1.7 % (0.0-10.0); %Lymphocytes 18.1 % (21.0-51.0); Hematocrit 37.3 % (36.0-47.0); Mean Platelet Volume 8.3 fL (7.4-10.4); Red Blood Cell (RBC) Count 4.26 mill/uL (4.20-5.40); White Blood Cell (WBC) Count 9.6 thou/uL (4.8-10.8)
[2016-11-22 05:24] LABS: Anion Gap 12 mmol/L (10-20); BUN (Urea Nitrogen) 13 mg/dL (7.0-18.7); Calc. Creatinine Clearance 280 mL/min (70-130); Carbon Dioxide 29 mmol/L (22-29); Chloride 97 mmol/L (98-107); Estimated GFR-MDRD Greater than 90
[2016-11-22] MEDS ORDERED: Furosemide 20 MG TAB PO SCH (07:45)
[2016-11-22] MEDS: Docusate 100 MG CAP PO SCH ×2 (07:48→20:48)
[2016-11-22] MEDS: Fluticasone Propionate Nasal Spray 16 gm Bottle NASAL SCH (07:49)
[2016-11-22] MEDS: Carvedilol 6.25 MG TAB PO SCH ×2 (07:49→16:01)
[2016-11-22] MEDS: Lisinopril 20 MG TAB PO SCH (07:49)
[2016-11-22] MEDS: Nicotine 21 MG PATCH TD SCH (07:49)
[2016-11-22] MEDS: Gabapentin 300 MG CAP PO SCH ×3 (07:49→20:48)
[2016-11-22] MEDS: Enoxaparin Sodium 40 MG/0.4 ML SYRINGE SC SCH (07:57)
[2016-11-22] MEDS ORDERED: Furosemide 40 MG TAB PO SCH (08:00)
--- NOTE | 2016-11-22 08:23 | PRG ---
DATE OF SERVICE: 11/22/2016 She is doing better, had no acute complaints. PHYSICAL EXAMINATION: VITAL SIGNS: Temperature is 98.5, pulse 92, respirations 20, O2 sat 89% on 3 liters, blood pressure 142/83. HEENT: Unremarkable. NECK: No JVD. CHEST: Fairly clear without wheezing. CARDIAC: S1, S2 regular. ABDOMEN: Obese, soft. EXTREMITIES: Bandage over her right leg and right foot. LABORATORY DATA: White blood cell count 9.6, hematocrit 37.3, platelet count 374. Sodium 134, pota ssium 4.3, chloride 97, CO2 29, BUN 13, creatinine 0.6, glucose 130. ASSESSMENT: 1. Status post septic shock related to a gangrenous right toe. 2. Hyperglycemia, which has resolved. 3. Likely obesity hypoventilation syndrome. PLAN: 1. Continue IV antibiotics for as long as indicated per Dr. Lee. 2. Increase activity as tolerated. 3. The patient will probably need a sleep study at some point as an outpatient.
--- NOTE | 2016-11-22 11:22 | PDOC.FM ---
- Subjective Subjective: Patient says she feels better, tolerating PO intake. She says she is working with PT on sitting at side of bed - Objective MAR Reviewed: Yes Vital Signs & Weight: Vital Signs (12 hours) Temp Pulse Resp BP BP Pulse Ox 11/22/16 10:42 89 20 92 L 11/22/16 08:00 98.4 F 105 H 20 155/82 H 93 L 11/22/16 06:16 89 L 11/22/16 06:15 92 20 89 L 11/22/16 01:34 91 L 11/22/16 00:00 98.5 F 88 18 142/83 H 88 L Weight Admit Weight 166.468 kg Weight 166.922 kg Most Recent Monitor Data Heart Rate from ECG 73 NIBP 138/69 NIBP BP-Mean 109 Respiration from ECG 24 SpO2 87 I&O: 11/21/16 11/22/16 11/23/16 06:59 06:59 06:59 Intake Total 2808.4 851.4 Output Total 1065 1535 Balance 1743.4 -683.6 Result Diagrams: 11/22/16 04:06 11/22/16 04:06 <Dean Dunbar M - Last Filed: 11/22/16 11:20> - Objective Vital Signs & Weight: Vital Signs (12 hours) Temp Pulse Resp BP Pulse Ox 11/22/16 10:42 89 20 92 L 11/22/16 08:00 98.4 F 105 H 20 155/82 H 93 L 11/22/16 06:16 89 L 11/22/16 06:15 92 20 89 L 11/22/16 01:34 91 L Weight Admit Weight 367 lb Weight 368 lb Most Recent Monitor Data Heart Rate from ECG 73 NIBP 138/69 NIBP BP-Mean 109 Respiration from ECG 24 SpO2 87 I&O: 11/21/16 11/22/16 11/23/16 06:59 06:59 06:59 Intake Total 2808.4 851.4 Output Total 1065 1535 Balance 1743.4 -683.6 Result Diagrams: 11/22/16 04:06 11/22/16 04:06 <Omar Bejarano L - Last Filed: 11/22/16 12:07> Phys Exam - Physical Examination Constitutional: NAD HEENT: moist MMs Neck: no nodes, supple Wheezing on auscultation Cardiovascular: RRR, no significant murmur Gastrointestinal: non-tender, no distention, positive bowel sounds Edema present in leg and abd Neurological: moves all 4 limbs Psychiatric: normal affect Deviation from normal: Stasis dermatitis and rt foot wound <Dean Dunbar M - Last Filed: 11/22/16 11:20> Dx/Plan (1) Acute respiratory failure with hypoxia and hypercapnia Code(s): J96.01 - ACUTE RESPIRATORY FAILURE WITH HYPOXIA; J96.02 - ACUTE RESPIRATORY FAILURE WITH HYPERCAPNIA Status: Acute Plan: Extubated today, satting low 90 on 15L O2 via max., will monitor and wean. Currently being worked up as possible heart failure. 11/21 - Extubated, sating well, O2 requirement decreased to 3.5 L on NC - Patient is more mentally awake then yesterday. - Plan to continue to wean O2, transfer to floor, advise on tobacco cessation 11/22 - No change on O2 from yesterday - Patient is speaking easily with no labored breathing - Pt to sit in chair TID, use incentive spirometry and work with PT today - Likely O2 on discharge (2) Abscess of right leg Code(s): L02.415 - CUTANEOUS ABSCESS OF RIGHT LOWER LIMB Status: Acute Plan: Likely will de-escalate to levaquin based on sensitivity. Kidney function is good, will monitor as patient transitioned to levaquin. Continue wound care. 11/21 - Improving, but causes pain for patient. Will continue pain control. Will try adding NSAID - Surg feels wound is healing well, will continue to follow recs - ID recs cipro and keflex on discharge. 11/22 - Improving at this time, continue with wound vac and abx (3) Hypertension Code(s): I10 - ESSENTIAL (PRIMARY) HYPERTENSION Status: Acute Qualifiers: Hypertension type: unspecified Qualified Code(s): I10 - Essential (primary ) hypertension Plan: BP was in upper 150, has recently elevated with extubation. - Plan to titrate bp meds. 11/21 - BP was elevated overnight, was controlled with prn labetalol - Increasing lisinopril today to 20. - Continue lasix and coreg. 11/22 - Continue with current medication. - Evaluate lasix use as needed (4) Necrosis of toe Code(s): I96 - GANGRENE, NOT ELSEWHERE CLASSIFIED Status: Acute Plan: POD #3 - Plant is to follow up with surg rec. Will adjust abx as mentioned above. Wound care consulted. 11/21 - POD #3, follow with Surg recs, but it is improving based on surg's impression. - COntinue pain and current abx 11/22 - Day 4, continue with surg rec, pain control. (5) Chronic hypercapnic respiratory failure Code(s): J96.12 - CHRONIC RESPIRATORY FAILURE WITH HYPERCAPNIA Status: Chronic Plan: - Likely a chronic problem with elevated bicarb in 30's. Patient also has obesity, possible WALTER, thought not diagnosised. - Plan is to continue with O2 supplementation. Patient did indicate she doesn't use O2 at baseline today. - May need O2 at home. 11/21 - Patient has 35 year smoking history with wheezing on exam. - Chronic issue with elevated bicarb. Treatment with breathing treatment and supplemental oxygen. 11/22 - Likely o2 on discharge - Rec to patient that she need pulm/sleep study as outpatient. (6) DM2 (diabetes mellitus, type 2) Status: Chronic Qualifiers: Diabetes mellitus complication status: with unspecified complications Diabetes mellitus chcf insulin use: without continuous churn buttermaker use Qualified Code( s): E11.8 - Type 2 diabetes mellitus with unspecified complications Plan: A1c of 6.4. Her glucose during this stay has been acceptable - Will keep on SSI. Consider adding atorvastin 40, and metformin on discharge. 11/21 - Continue SSI. Add atorvastatin. 11/22 - Continue with current medication. (7) HLD (hyperlipidemia) Code(s): E78.5 - HYPERLIPIDEMIA, UNSPECIFIED Status: Chronic Qualifiers: Hyperlipidemia type: unspecified Qualified Code(s): E78.5 - Hyperlipidemia , unspecified Plan: - Atorvastatin, recommend follow up with pcp (8) Lymphedema of both lower extremities Code(s): I89.0 - LYMPHEDEMA, NOT ELSEWHERE CLASSIFIED Status: Chronic Plan: - Will get echo, patient had 20 of lasix yesterday - Plan today is discontinue IV fluid, lasix. Will still get echo. 11/21 - Patient received echo, awaiting read. 11/22 - Awaiting echo read (9) Morbid obesity Code(s): E66.01 - MORBID (SEVERE) OBESITY DUE TO EXCESS CALORIES Status: Chronic Plan: - Trailer Chief patient on discharge 11/21 - Advance to HH diet. - education adviser on discharge 11/22 - Unchanged plan (10) Tobacco abuse Code(s): Z72.0 - TOBACCO USE Status: Chronic Plan: - Trailer Chief patient on discharge. 11/21 - Increased her nicotine patch to 21 due to extensive smoking - Trailer Chief on discharge 11/22 - Unchanged plan - Plan Plan: Patient had some insomnia, will start on melatonin. <Dean Dunbar - Last Filed: 11/22/16 11:20> Attending Addendum - Attending Addendum I personally evaluated the patient and discussed the management with Dr. [diego] I agree with the History, Examination, Assessment and Plan documented above with any addition or exceptions noted below. pt is doing better but has a long way to discharge due to her immobility and lack of funding. PT will work on getting her out of bed we will give lasix for volume overload and await echo to see if she has rt ventricular failure secondary to pulm htn. we will cont abx and pain control for surgical site infection sp amputation we will cont oxygen and decrease as possible for her obesity hypoventilation syndrome <Omar Bejarano - Last Filed: 11/22/16 12:07>
[2016-11-22] MEDS ORDERED: Melatonin 3 MG TAB PO PRN (11:28)
--- NOTE | 2016-11-22 21:11 | PRG ---
DATE OF PROGRESS: 11/22/2016 Ms. 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 The wou nd looks very good. The patient is uninsured. Wound VAC care outpatient will be difficult. The pa jory just has not ambulated yet. Physical therapy is working with her. Patient states that she wi ll get out of bed today in a chair and ambulate tomorrow. The patient's foot wound looks good and i s granulating healthy. There is no cellulitis and infection. I would recommend continuing wound VA C care in the hospital and instruct the patient on wet to dry dressings prior to going home. Once s he goes home, she can change the dressings daily and wash the foot with soap and water, and apply we t to dry dressings. She can follow up with me in 3-4 weeks.
[2016-11-23] MEDS: Morphine Sulfate 2 MG/ML SYRINGE SLOW IVP PRN ×2 (01:43→09:41)
[2016-11-23 06:29] LABS: Anion Gap 11 mmol/L (10-20); BUN (Urea Nitrogen) 13 mg/dL (7.0-18.7); Calc. Creatinine Clearance 302 mL/min (70-130); Calcium 9.4 mg/dL (7.8-10.44); Carbon Dioxide 34 mmol/L (22-29); Chloride 95 mmol/L (98-107); Estimated GFR-MDRD Greater than 90
[2016-11-23 06:44] LABS: #Eosinphils 0.1 thou/uL (0.0-0.7); #Lymphocytes 1.5 thou/uL (1.20-3.40); #Neutrophils 6.7 thou/uL (1.40-6.50); %Basophils 0.3 % (0.0-1.0); %Eosinophils 1.5 % (0.0-10.0); %Lymphocytes 16.3 % (21.0-51.0); Hematocrit 37.7 % (36.0-47.0); Mean Platelet Volume 8.3 fL (7.4-10.4); Red Blood Cell (RBC) Count 4.31 mill/uL (4.20-5.40); White Blood Cell (WBC) Count 9.5 thou/uL (4.8-10.8)
[2016-11-23] MEDS: Lisinopril 20 MG TAB PO SCH ×2 (09:00→20:48)
[2016-11-23] MEDS: Gabapentin 300 MG CAP PO SCH ×3 (09:01→20:48)
[2016-11-23] MEDS: Fluticasone Propionate Nasal Spray 16 gm Bottle NASAL SCH (09:01)
[2016-11-23] MEDS: Carvedilol 6.25 MG TAB PO SCH (09:02)
[2016-11-23] MEDS: Nicotine 21 MG PATCH TD SCH (09:03)
[2016-11-23] MEDS: Enoxaparin Sodium 40 MG/0.4 ML SYRINGE SC SCH (09:03)
[2016-11-23] MEDS ORDERED: Furosemide 40 MG/4 ML VIAL SLOW IVP SCH (10:00)
--- NOTE | 2016-11-23 10:40 | PRG ---
DATE OF SERVICE: 11/23/2016 She is attempting to get up with the physical therapist today. I noticed that she is on oxygen face mask this morning - something that I do not recall her being on previously. PHYSICAL EXAMINATION: VITAL SIGNS: Temperature is 97.8, pulse 91, respirations 18, O2 sat 92%, blood pressure 190/86. 24 hour intake 821, output 1535 plus another 2400 out this morning. HEENT: Unremarkable. NECK: No JVD. LUNGS: Diminished breath sounds in both bases. CARDIAC: S1 and S2 regular. ABDOMEN: Soft. EXTREMITIES: Edematous throughout. LABORATORY DATA: White blood cell count 9.5, hematocrit 37.7, platelet count 365. Sodium 136, pota ssium 4.4, chloride 95, CO2 34, BUN 13, creatinine 0.6, glucose 101. ASSESSMENT: 1. Obstructive sleep apnea. 2. Status post respiratory failure related to sepsis. 3. Likely some component of fluid overload. RECOMMENDATIONS: 1. I would give her some IV diuretics today and recheck a chemistry tomorrow morning. 2. Wean oxygen as tolerated. 3. Continue physical therapy. 4. Continue antibiotics.
--- NOTE | 2016-11-23 11:06 | PDOC.FM ---
- Subjective Subjective: Yesterday patient had difficulty breathing, was placed on 15 L of O2 by facemask. She has since started weaning down to 6 L by NC, near her baseline of 4 from previous day. She says she feels "better", but was noted to not be as animated as she was. She has stood up yesterday. - Objective MAR Reviewed: Yes Vital Signs & Weight: Vital Signs (12 hours) Temp Pulse Resp BP BP Pulse Ox 11/23/16 10:34 89 16 93 L 11/23/16 08:00 97.8 F 91 18 190/86 H 92 L 11/23/16 06:14 94 20 88 L 11/23/16 04:00 98.4 F 87 20 173/83 H 94 L 11/23/16 02:46 90 18 92 L 11/23/16 01:38 97.7 F 92 20 157/92 H 95 11/22/16 23:06 94 22 H 91 L Weight Admit Weight 166.468 kg Weight 171.458 kg Most Recent Monitor Data Heart Rate from ECG 73 NIBP 138/69 NIBP BP-Mean 109 Respiration from ECG 24 SpO2 87 I&O: 11/22/16 11/23/16 11/24/16 06:59 06:59 06:59 Intake Total 851.4 Output Total 0942 2400 Balance -683.6 -2400 Result Diagrams: 11/23/16 04:12 11/23/16 04:12 <BettinaDean M - Last Filed: 11/23/16 11:04> - Objective Vital Signs & Weight: Vital Signs (12 hours) Temp Pulse Resp BP BP Pulse Ox 11/23/16 10:34 89 16 93 L 11/23/16 08:00 97.8 F 91 18 190/86 H 92 L 11/23/16 06:14 94 20 88 L 11/23/16 04:00 98.4 F 87 20 173/83 H 94 L 11/23/16 02:46 90 18 92 L 11/23/16 01:38 97.7 F 92 20 157/92 H 95 Weight Admit Weight 367 lb Weight 378 lb Most Recent Monitor Data Heart Rate from ECG 73 NIBP 138/69 NIBP BP-Mean 109 Respiration from ECG 24 SpO2 87 I&O: 11/22/16 11/23/16 11/24/16 06:59 06:59 06:59 Intake Total 851.4 Output Total 1535 2400 Balance -683.6 -2400 Result Diagrams: 11/23/16 04:12 11/23/16 04:12 <Omar Bejarano - Last Filed: 11/23/16 12:36> Phys Exam - Physical Examination Constitutional: NAD HEENT: moist MMs Neck: no nodes, supple Shallow breathing, quiet Cardiovascular: RRR Gastrointestinal: soft, non-tender, no distention Musculoskeletal: no edema Neurological: non-focal, moves all 4 limbs Lymphatic: no nodes Deviation from normal: somnolent, drifts to sleep while talking Deviation from normal: No new rash <BettinaDean M - Last Filed: 11/23/16 11:04> Dx/Plan (1) Acute respiratory failure with hypoxia and hypercapnia Code(s): J96.01 - ACUTE RESPIRATORY FAILURE WITH HYPOXIA; J96.02 - ACUTE RESPIRATORY FAILURE WITH HYPERCAPNIA Status: Acute Plan: Extubated today, satting low 90 on 15L O2 via max., will monitor and wean. Currently being worked up as possible heart failure. 11/21 - Extubated, sating well, O2 requirement decreased to 3.5 L on NC - Patient is more mentally awake then yesterday. - Plan to continue to wean O2, transfer to floor, advise on tobacco cessation 11/22 - No change on O2 from yesterday - Patient is speaking easily with no labored breathing - Pt to sit in chair TID, use incentive spirometry and work with PT today - Likely O2 on discharge 11/23 - Will continue titration. Will consider starting a blood gas. - Will continue lasix. - Will contact card for echo. (2) Abscess of right leg Code(s): L02.415 - CUTANEOUS ABSCESS OF RIGHT LOWER LIMB Status: Acute Plan: Likely will de-escalate to levaquin based on sensitivity. Kidney function is good, will monitor as patient transitioned to levaquin. Continue wound care. 11/21 - Improving, but causes pain for patient. Will continue pain control. Will try adding NSAID - Surg feels wound is healing well, will continue to follow recs - ID recs cipro and keflex on discharge. 11/22 - Improving at this time, continue with wound vac and abx 11/23 - Improving, continue current plan. (3) Hypertension Code(s): I10 - ESSENTIAL (PRIMARY) HYPERTENSION Status: Acute Qualifiers: Hypertension type: unspecified Qualified Code(s): I10 - Essential (primary ) hypertension Plan: BP was in upper 150, has recently elevated with extubation. - Plan to titrate bp meds. 11/21 - BP was elevated overnight, was controlled with prn labetalol - Increasing lisinopril today to 20. - Continue lasix and coreg. 11/22 - Continue with current medication. - Evaluate lasix use as needed 11/23 - Not controlled, increasing patient's lisinopril to 40, will increase coreg next. (4) Necrosis of toe Code(s): I96 - GANGRENE, NOT ELSEWHERE CLASSIFIED Status: Acute Plan: POD #3 - Plant is to follow up with surg rec. Will adjust abx as mentioned above. Wound care consulted. 11/21 - POD #3, follow with Surg recs, but it is improving based on surg's impression. - COntinue pain and current abx 11/22 - Day 4, continue with surg rec, pain control. 11/23 - Continue with surg recs. Recommended wet to dry dressing as outpatient. (5) Chronic hypercapnic respiratory failure Code(s): J96.12 - CHRONIC RESPIRATORY FAILURE WITH HYPERCAPNIA Status: Chronic Plan: - Likely a chronic problem with elevated bicarb in 30's. Patient also has obesity, possible WALTER, thought not diagnosised. - Plan is to continue with O2 supplementation. Patient did indicate she doesn't use O2 at baseline today. - May need O2 at home. 11/21 - Patient has 35 year smoking history with wheezing on exam. - Chronic issue with elevated bicarb. Treatment with breathing treatment and supplemental oxygen. 11/22 - Likely o2 on discharge - Rec to patient that she need pulm/sleep study as outpatient. 11/23 - Will start on nightly cpap, recommend pulm follow up outpatient. (6) DM2 (diabetes mellitus, type 2) Status: Chronic Qualifiers: Diabetes mellitus complication status: with unspecified complications Diabetes mellitus skilled nursing insulin use: without skilled nursing use Qualified Code( s): E11.8 - Type 2 diabetes mellitus with unspecified complications Plan: A1c of 6.4. Her glucose during this stay has been acceptable - Will keep on SSI. Consider adding atorvastin 40, and metformin on discharge. 11/21 - Continue SSI. Add atorvastatin. 11/22 - Continue with current medication. 11/23 - Continue current plan. (7) HLD (hyperlipidemia) Code(s): E78.5 - HYPERLIPIDEMIA, UNSPECIFIED Status: Chronic Qualifiers: Hyperlipidemia type: unspecified Qualified Code(s): E78.5 - Hyperlipidemia , unspecified Plan: - Atorvastatin, recommend follow up with pcp 11/23 - Continue with atorvastatin (8) Lymphedema of both lower extremities Code(s): I89.0 - LYMPHEDEMA, NOT ELSEWHERE CLASSIFIED Status: Chronic Plan: - Will get echo, patient had 20 of lasix yesterday - Plan today is discontinue IV fluid, lasix. Will still get echo. 11/21 - Patient received echo, awaiting read. 11/22 - Awaiting echo read 11/23 - Contacting card for echo read (9) Morbid obesity Code(s): E66.01 - MORBID (SEVERE) OBESITY DUE TO EXCESS CALORIES Status: Chronic Plan: - Fine Arts Chair patient on discharge 11/21 - Advance to HH diet. - perinatal specialist on discharge 11/22 - Unchanged plan 11/23 - Fine Arts Chair on discharge (10) Tobacco abuse Code(s): Z72.0 - TOBACCO USE Status: Chronic Plan: - Fine Arts Chair patient on discharge. 11/21 - Increased her nicotine patch to 21 due to extensive smoking - Fine Arts Chair on discharge 11/22 - Unchanged plan 11/23 - Fine Arts Chair on discharge <eDan Dunbar - Last Filed: 11/23/16 11:04> Attending Addendum - Attending Addendum I personally evaluated the patient and discussed the management with Dr. [Bettina] I agree with the History, Examination, Assessment and Plan documented above with any addition or exceptions noted below. pt with some back sliding and clinical co2 narcosis so abg will be checked. we will eliminate any respiratory depressants and have her sit up as much as possible to respire more effectively. bipap likely needed until ready for dc. we need to increase functional status and continue diuresis. we await echo results <Omar Bejarano - Last Filed: 11/23/16 12:36>
[2016-11-23 12:00] LABS: Oxyhemoglobin 82.9 % (94.0-97.0); Sodium 139 mmol/L (135-148)
[2016-11-23 12:02] LABS: Mode 5L/M NASAL CANNULA
[2016-11-23] MEDS: Docusate 100 MG CAP PO SCH ×2 (13:21→20:50)
--- NOTE | 2016-11-23 14:47 | RAD ---
PORTABLE SEMIUPRIGHT FRONTAL CHEST RADIOGRAPH: 11/23/2016 HISTORY: Hypercapnia. COMPARISON: 11/21/2016 FINDINGS: There is mild pulmonary vascular congestion and perihilar interstitial prominence, nonspecific and s table. Stable right-sided vascular catheter. No pneumothorax, lobar consolidation, or alveolar kely ma. IMPRESSION: Stable appearance of the chest. POS: MUNIRA
[2016-11-23] MEDS: Acetaminophen/Codeine 30-300mg Tablet PO PRN (15:26)
[2016-11-23] MEDS: Carvedilol 25 MG TAB PO SCH (17:32)
[2016-11-23] MEDS: HYDROcodone/Acetaminophen 5/325 mg Tablet PO PRN (23:35)
[2016-11-24] MEDS: Chloraseptic Spray 180 ml Bottle PO PRN ×2 (04:00)
[2016-11-24] MEDS: HYDROcodone/Acetaminophen 5/325 mg Tablet PO PRN ×2 (04:57→09:36)
[2016-11-24 05:02] LABS: #Basophils 0.1 thou/uL (0.0-0.2); #Eosinphils 0.1 thou/uL (0.0-0.7); #Lymphocytes 1.8 thou/uL (1.20-3.40); #Monocytes 1.1 thou/uL (0.11-0.59); %Basophils 0.5 % (0.0-1.0); %Eosinophils 1.4 % (0.0-10.0); %Lymphocytes 18.2 % (21.0-51.0); %Monocytes 10.8 % (0.0-10.0); Hematocrit 34.2 % (36.0-47.0); Mean Platelet Volume 7.8 fL (7.4-10.4); Red Blood Cell (RBC) Count 3.92 mill/uL (4.20-5.40); White Blood Cell (WBC) Count 10.1 thou/uL (4.8-10.8)
[2016-11-24] MEDS: Furosemide 20 MG/2 ML VIAL SLOW IVP SCH ×2 (05:02→13:44)
[2016-11-24 05:10] LABS: BUN (Urea Nitrogen) 13 mg/dL (7.0-18.7); Calc. Creatinine Clearance 293 mL/min (70-130); Calcium 9.3 mg/dL (7.8-10.44); Estimated GFR-MDRD Greater than 90
[2016-11-24 05:19] LABS: Anion Gap 14 mmol/L (10-20); Carbon Dioxide 35 mmol/L (22-29); Chloride 94 mmol/L (98-107)
[2016-11-24] MEDS ORDERED: Gabapentin 300 MG CAP PO SCH ×2 (06:59→10:14)
[2016-11-24] MEDS: Nicotine 21 MG PATCH TD SCH (09:35)
[2016-11-24] MEDS: Enoxaparin Sodium 40 MG/0.4 ML SYRINGE SC SCH (09:36)
[2016-11-24] MEDS: Lisinopril 20 MG TAB PO SCH ×2 (09:37→20:54)
[2016-11-24] MEDS: Carvedilol 25 MG TAB PO SCH ×2 (09:37→15:42)
[2016-11-24] MEDS: Docusate 100 MG CAP PO SCH ×2 (09:37→20:54)
[2016-11-24] MEDS: Fluticasone Propionate Nasal Spray 16 gm Bottle NASAL SCH (09:38)
--- NOTE | 2016-11-24 09:58 | PRG ---
DATE OF SERVICE: 11/24/2016 Ms. Oliveira is doing better. She required BiPAP for about 3 hours last night. PHYSICAL EXAMINATION: VITAL SIGNS: Temperature 99.9, pulse 84, respiration 27, 94% on 5 liters, blood pressure 153/67. HEENT: Unremarkable. NECK: No JVD. CHEST: Clear. CARDIAC: S1 and S2 regular. ABDOMEN: Soft. EXTREMITIES: Right fourth toe amputation. Chest x-ray from yesterday demonstrated no acute findings. LABORATORY DATA: White blood cell count 10, hematocrit 34.2, platelet count 379. Sodium 139, potassium 3.9, chloride 94, CO2 35, BUN 13, creatinine 0.6, glucose 107. ASSESSMENT: This patient has obesity hypoventilation syndrome which is worsened by narcotic use for her pain. She is clearly better today since the morphine has dissipated from her system. I would advocate eliminating all narcotics including hydrocodone and just treating her with gabapentin and ibuprofen or acetaminophen. I would limit the use of Lasix as she will developed a contraction alkalosis that will cause her to retain more CO2. If a diuretic is needed then I would advocate using Diamox 250 mg p.o. once or twice a day. I told her she can be transferred back to the floor tomorrow if she does not need the BiPAP. Unfortunately, she is unfunded, so she will not be able to get a sleep study as an outpatient. ROMI
--- NOTE | 2016-11-24 11:06 | PDOC.FM ---
- Subjective Subjective: Patient state she is feeling better and that she has been using her incentive spirometry. - Objective MAR Reviewed: Yes Vital Signs & Weight: Vital Signs (12 hours) Temp Pulse Resp BP BP Pulse Ox 11/24/16 10:34 89 24 H 11/24/16 09:37 154/58 H 11/24/16 08:07 94 L 11/24/16 08:04 84 20 94 L 11/24/16 07:42 99.9 F H 85 17 153/67 H 94 L 11/24/16 04:00 98.4 F 92 22 H 116/47 L 93 L 11/24/16 03:08 97 20 95 11/24/16 03:05 93 L 11/24/16 00:00 98.4 F 88 20 120/55 L 93 L Weight Admit Weight 166.468 kg Weight 171.8 kg Most Recent Monitor Data Heart Rate from ECG 73 NIBP 138/69 NIBP BP-Mean 109 Respiration from ECG 24 SpO2 87 I&O: 11/23/16 11/24/16 11/25/16 06:59 06:59 06:59 Intake Total 1440 Output Total 2400 4070 Balance -2400 -2630 Result Diagrams: 11/24/16 04:39 11/24/16 04:39 <BettinaDean M - Last Filed: 11/24/16 10:48> - Objective Vital Signs & Weight: Vital Signs (12 hours) Temp Pulse Resp BP BP Pulse Ox 11/24/16 11:41 98.5 F 85 18 144/72 H 90 L 11/24/16 10:34 89 24 H 11/24/16 09:37 154/58 H 11/24/16 08:07 94 L 11/24/16 08:04 84 20 94 L 11/24/16 08:00 99.9 F H 89 24 H 94 L 11/24/16 07:42 99.9 F H 85 17 153/67 H 94 L 11/24/16 04:00 98.4 F 92 22 H 116/47 L 93 L 11/24/16 03:08 97 20 95 11/24/16 03:05 93 L Weight Admit Weight 367 lb Weight 378 lb 12.066 oz Most Recent Monitor Data Heart Rate from ECG 73 NIBP 138/69 NIBP BP-Mean 109 Respiration from ECG 24 SpO2 87 I&O: 11/23/16 11/24/16 11/25/16 06:59 06:59 06:59 Intake Total 1440 350 Output Total 2400 4070 Balance -2400 -2630 350 Result Diagrams: 11/24/16 04:39 11/24/16 04:39 <DarciOmar L - Last Filed: 11/24/16 12:11> Phys Exam - Physical Examination Constitutional: NAD HEENT: moist MMs Neck: no nodes, supple wheezing Cardiovascular: RRR Gastrointestinal: soft, positive bowel sounds Musculoskeletal: edema present Neurological: non-focal Lymphatic: no nodes <Dean Dunbar M - Last Filed: 11/24/16 10:48> Dx/Plan (1) Acute respiratory failure with hypoxia and hypercapnia Code(s): J96.01 - ACUTE RESPIRATORY FAILURE WITH HYPOXIA; J96.02 - ACUTE RESPIRATORY FAILURE WITH HYPERCAPNIA Status: Acute Plan: Extubated today, satting low 90 on 15L O2 via max., will monitor and wean. Currently being worked up as possible heart failure. 11/21 - Extubated, sating well, O2 requirement decreased to 3.5 L on NC - Patient is more mentally awake then yesterday. - Plan to continue to wean O2, transfer to floor, advise on tobacco cessation 11/22 - No change on O2 from yesterday - Patient is speaking easily with no labored breathing - Pt to sit in chair TID, use incentive spirometry and work with PT today - Likely O2 on discharge 11/23 - Will continue titration. Will consider starting a blood gas. - Will continue lasix. - Will contact card for echo. 11/24 - Echo came back with elevated pulm artery pressure. - EF was normal, no read of heart failure, but still concerning for elevate pulmonary pressure - Currently, patient is doing better, back on NC. She will need to see pulm outpatient for sleep study. (2) Abscess of right leg Code(s): L02.415 - CUTANEOUS ABSCESS OF RIGHT LOWER LIMB Status: Acute Plan: Likely will de-escalate to levaquin based on sensitivity. Kidney function is good, will monitor as patient transitioned to levaquin. Continue wound care. 11/21 - Improving, but causes pain for patient. Will continue pain control. Will try adding NSAID - Surg feels wound is healing well, will continue to follow recs - ID recs cipro and keflex on discharge. 11/22 - Improving at this time, continue with wound vac and abx 11/23 - Improving, continue current plan. 11/24 - Improving, she will need cipro/keflex on discharge. - Day 7 of abx (3) Hypertension Code(s): I10 - ESSENTIAL (PRIMARY) HYPERTENSION Status: Acute Qualifiers: Hypertension type: unspecified Qualified Code(s): I10 - Essential (primary ) hypertension Plan: BP was in upper 150, has recently elevated with extubation. - Plan to titrate bp meds. 11/21 - BP was elevated overnight, was controlled with prn labetalol - Increasing lisinopril today to 20. - Continue lasix and coreg. 11/22 - Continue with current medication. - Evaluate lasix use as needed 11/23 - Not controlled, increasing patient's lisinopril to 40, will increase coreg next. 11/24 - Better controlled after lisinopril 20 bid. Will continue with current meds. (4) Necrosis of toe Code(s): I96 - GANGRENE, NOT ELSEWHERE CLASSIFIED Status: Acute Plan: POD #3 - Plant is to follow up with surg rec. Will adjust abx as mentioned above. Wound care consulted. 11/21 - POD #3, follow with Surg recs, but it is improving based on surg's impression. - COntinue pain and current abx 11/22 - Day 4, continue with surg rec, pain control. 11/23 - Continue with surg recs. Recommended wet to dry dressing as outpatient. 11/24 - COntinue current plan. No new changes to her assessment. (5) Chronic hypercapnic respiratory failure Code(s): J96.12 - CHRONIC RESPIRATORY FAILURE WITH HYPERCAPNIA Status: Chronic Plan: - Likely a chronic problem with elevated bicarb in 30's. Patient also has obesity, possible WALTER, thought not diagnosised. - Plan is to continue with O2 supplementation. Patient did indicate she doesn't use O2 at baseline today. - May need O2 at home. 11/21 - Patient has 35 year smoking history with wheezing on exam. - Chronic issue with elevated bicarb. Treatment with breathing treatment and supplemental oxygen. 11/22 - Likely o2 on discharge - Rec to patient that she need pulm/sleep study as outpatient. 11/23 - Will start on nightly cpap, recommend pulm follow up outpatient. 11/24 - Keep on current plan. (6) DM2 (diabetes mellitus, type 2) Status: Chronic Qualifiers: Diabetes mellitus complication status: with unspecified complications Diabetes mellitus prison insulin use: without prison use Qualified Code( s): E11.8 - Type 2 diabetes mellitus with unspecified complications Plan: A1c of 6.4. Her glucose during this stay has been acceptable - Will keep on SSI. Consider adding atorvastin 40, and metformin on discharge. 11/21 - Continue SSI. Add atorvastatin. 11/22 - Continue with current medication. 11/23 - Continue current plan. 11/24 - Continue with SSI. BG is controlled at this time. (7) HLD (hyperlipidemia) Code(s): E78.5 - HYPERLIPIDEMIA, UNSPECIFIED Status: Chronic Qualifiers: Hyperlipidemia type: unspecified Qualified Code(s): E78.5 - Hyperlipidemia , unspecified Plan: - Atorvastatin, recommend follow up with pcp 11/23 - Continue with atorvastatin 11/24 - Continue plan. (8) Lymphedema of both lower extremities Code(s): I89.0 - LYMPHEDEMA, NOT ELSEWHERE CLASSIFIED Status: Chronic Plan: - Will get echo, patient had 20 of lasix yesterday - Plan today is discontinue IV fluid, lasix. Will still get echo. 11/21 - Patient received echo, awaiting read. 11/22 - Awaiting echo read 11/23 - Contacting card for echo read 11/24 - No congestive heart failure noted on echo, but she does have elevated pulm artery (9) Morbid obesity Code(s): E66.01 - MORBID (SEVERE) OBESITY DUE TO EXCESS CALORIES Status: Chronic Plan: - Coating Machine Helper patient on discharge 11/21 - Advance to diet. - dragger out on discharge 11/22 - Unchanged plan 11/23 - Coating Machine Helper on discharge 11/24 - Continue plan (10) Tobacco abuse Code(s): Z72.0 - TOBACCO USE Status: Chronic Plan: - Coating Machine Helper patient on discharge. 11/21 - Increased her nicotine patch to 21 due to extensive smoking - Coating Machine Helper on discharge 11/22 - Unchanged plan 11/23 - Coating Machine Helper on discharge 11/24 - Continue plan <Dean Dunbar M - Last Filed: 11/24/16 10:48> Attending Addendum - Attending Addendum I personally evaluated the patient and discussed the management with [Ly] I agree with the History, Examination, Assessment and Plan documented above with any addition or exceptions noted below. pt is improved but she remains debilitated and crux of the matter is that she has never taken responsibilty for herself and thus ends up in this state. she is very dependent in the hospital. we will increase her activity and try to get her walking enough to go home. she will need to do wound care at home and we will need to send her home on oxygen. she is at high risk of readmission as pulmonary function will not improve quickly if at all and recurrent leg infection is clearly possible.. we will continue with diuresis. <Omar Bejarano - Last Filed: 11/24/16 12:11>
[2016-11-24] MEDS: Ibuprofen 800 MG TAB PO SCH ×2 (13:44→21:00)
[2016-11-24] MEDS: Gabapentin 400 MG CAP PO SCH ×2 (13:45→20:55)
[2016-11-24] MEDS: Acetaminophen/Codeine 30-300mg Tablet PO PRN (15:41)
[2016-11-25] MEDS: Acetaminophen/Codeine 30-300mg Tablet PO PRN ×2 (04:30→09:24)
[2016-11-25 05:07] LABS: #Eosinphils 0.2 thou/uL (0.0-0.7); #Lymphocytes 1.9 thou/uL (1.20-3.40); #Neutrophils 6.2 thou/uL (1.40-6.50); %Basophils 0.5 % (0.0-1.0); %Eosinophils 1.6 % (0.0-10.0); %Lymphocytes 20.7 % (21.0-51.0); %Monocytes 10.8 % (0.0-10.0); Hematocrit 36.8 % (36.0-47.0); Mean Platelet Volume 7.5 fL (7.4-10.4); Red Blood Cell (RBC) Count 4.18 mill/uL (4.20-5.40); White Blood Cell (WBC) Count 9.3 thou/uL (4.8-10.8)
[2016-11-25 05:18] LABS: BUN (Urea Nitrogen) 18 mg/dL (7.0-18.7); Calc. Creatinine Clearance 284 mL/min (70-130); Calcium 9.4 mg/dL (7.8-10.44); Estimated GFR-MDRD Greater than 90
[2016-11-25 05:27] LABS: Anion Gap 13 mmol/L (10-20); Carbon Dioxide 38 mmol/L (22-29); Chloride 92 mmol/L (98-107)
[2016-11-25] MEDS: Ibuprofen 800 MG TAB PO SCH ×3 (05:58→21:57)
[2016-11-25] MEDS: Furosemide 20 MG/2 ML VIAL SLOW IVP SCH (05:58)
--- NOTE | 2016-11-25 07:08 | PDOC.FM ---
Addendum entered and electronically signed by Mookie Hoyos DO 11/25/16 19: 26: Will place benitez catheter 2/2 urinary retention and check a BNP Original Note: - Subjective Subjective: Pt states she is feeling better. Does report some pain in the right leg. Per nursing staff pt desats and turns cyanotic when attempting to roll her. Pt has not yet been seen again by physical therapy. It was encouraged she sit up and move as much as possible per therapy recommendations. - Objective Vital Signs & Weight: Vital Signs (12 hours) Temp Pulse Resp BP BP Pulse Ox 11/25/16 04:00 97.4 F L 72 22 H 110/47 L 97 11/25/16 03:02 69 19 95 11/25/16 03:01 95 11/25/16 00:00 98.7 F 65 20 122/61 96 11/24/16 22:42 66 23 H 96 11/24/16 22:39 95 11/24/16 20:54 150/48 H 11/24/16 20:00 98.7 F 66 23 H 150/48 H 93 L 11/24/16 19:07 92 L Weight Admit Weight 166.468 kg Weight 172.1 kg Most Recent Monitor Data Heart Rate from ECG 73 NIBP 138/69 NIBP BP-Mean 109 Respiration from ECG 24 SpO2 87 I&O: 11/24/16 11/25/16 11/26/16 06:59 06:59 06:59 Intake Total 1440 1780 Output Total 4070 3300 Balance -2630 -1520 Result Diagrams: 11/25/16 04:43 11/25/16 04:43 <Mookie Hoyos - Last Filed: 11/25/16 18:51> - Objective Vital Signs & Weight: Vital Signs (12 hours) Temp Pulse Pulse Pulse Resp BP BP 11/26/16 20:53 135/60 11/26/16 20:00 97.8 F 76 18 11/26/16 18:20 92 16 11/26/16 15:24 97.5 F L 88 22 H 11/26/16 11:53 83 19 11/26/16 11:36 97.8 F 81 22 H 11/26/16 11:25 82 93 118/34 L BP BP BP Pulse Ox 11/26/16 20:53 11/26/16 20:00 135/60 91 L 11/26/16 18:20 96 11/26/16 15:24 128/66 96 11/26/16 11:53 97 11/26/16 11:36 129/75 91 L 11/26/16 11:25 129/75 Weight Admit Weight 367 lb Weight 374 lb 9.046 oz Most Recent Monitor Data Heart Rate from ECG 73 NIBP 138/69 NIBP BP-Mean 109 Respiration from ECG 24 SpO2 87 I&O: 11/25/16 11/26/16 11/27/16 06:59 06:59 06:59 Intake Total 1780 1350 1810 Output Total 3300 2800 2150 Balance -0333 -4244 -623 Result Diagrams: 11/25/16 04:43 11/26/16 04:22 <Omar Bejarano - Last Filed: 11/26/16 22:00> Phys Exam - Physical Examination Constitutional: NAD morbidly obese HEENT: moist MMs pupils unequal, round, reactive to light w/ acommodation Respiratory: no rales, no rhonchi, clear to auscultation bilateral Cardiovascular: RRR, no significant murmur, no rub Gastrointestinal: soft, no distention, positive bowel sounds protuberent, edematous edematous radial pulses 2+ Neurological: non-focal <Mookie Hoyos - Last Filed: 11/25/16 18:51> Dx/Plan (1) Acute respiratory failure with hypoxia and hypercapnia Code(s): J96.01 - ACUTE RESPIRATORY FAILURE WITH HYPOXIA; J96.02 - ACUTE RESPIRATORY FAILURE WITH HYPERCAPNIA Status: Acute Plan: Echo showed elevated pulmonary pressure No evidence of HF BiPap as needed @ night on 5L NC this AM, maintain sats >88% sit up in chair throughout day as pt decompensates when <30 degrees (2) Cellulitis of right lower extremity Code(s): L03.115 - CELLULITIS OF RIGHT LOWER LIMB Status: Acute Plan: Continue wound vac while inpatient wet to dry dressing once ready for discharge, per surgery recs continue abx, white count trended down, cipro keflex on discharge (3) Hypertension Code(s): I10 - ESSENTIAL (PRIMARY) HYPERTENSION Status: Acute Qualifiers: Hypertension type: unspecified Qualified Code(s): I10 - Essential (primary ) hypertension Plan: contniue lisinopril 20 BID (4) Necrosis of toe Code(s): I96 - GANGRENE, NOT ELSEWHERE CLASSIFIED Status: Acute Plan: wet to dry dressing once op continue care per surgery recommendations continue abx (5) Chronic hypercapnic respiratory failure Code(s): J96.12 - CHRONIC RESPIRATORY FAILURE WITH HYPERCAPNIA Status: Chronic Plan: titrate O2 to above 88% may require use of BiPap at night (6) DM2 (diabetes mellitus, type 2) Status: Chronic Qualifiers: Diabetes mellitus complication status: with unspecified complications Diabetes mellitus intermediate card tender insulin use: without detention use Qualified Code( s): E11.8 - Type 2 diabetes mellitus with unspecified complications Plan: continue SSI (7) HLD (hyperlipidemia) Code(s): E78.5 - HYPERLIPIDEMIA, UNSPECIFIED Status: Chronic Qualifiers: Hyperlipidemia type: unspecified Qualified Code(s): E78.5 - Hyperlipidemia , unspecified Plan: continue statin (8) Lymphedema of both lower extremities Code(s): I89.0 - LYMPHEDEMA, NOT ELSEWHERE CLASSIFIED Status: Chronic Plan: will hold lasix for now per pulm recommendations (9) Morbid obesity Code(s): E66.01 - MORBID (SEVERE) OBESITY DUE TO EXCESS CALORIES Status: Chronic Plan: HH diet <Mookie Hoyos - Last Filed: 11/25/16 18:51> Attending Addendum - Attending Addendum I personally evaluated the patient and discussed the management with [Romain ] I agree with the History, Examination, Assessment and Plan documented above with any addition or exceptions noted below. we are at an impasse due to her severe decondtioning so it is going to be a long slog <Omar Bejarano - Last Filed: 11/26/16 22:00>
[2016-11-25] MEDS: Carvedilol 25 MG TAB PO SCH ×3 (09:24→18:29)
[2016-11-25] MEDS: Lisinopril 20 MG TAB PO SCH ×2 (09:24→20:01)
[2016-11-25] MEDS: Gabapentin 400 MG CAP PO SCH ×3 (09:24→20:01)
[2016-11-25] MEDS: Docusate 100 MG CAP PO SCH ×2 (09:24→20:02)
[2016-11-25] MEDS: Nicotine 21 MG PATCH TD SCH (09:25)
[2016-11-25] MEDS: Enoxaparin Sodium 40 MG/0.4 ML SYRINGE SC SCH (09:25)
[2016-11-25] MEDS: Fluticasone Propionate Nasal Spray 16 gm Bottle NASAL SCH (09:26)
[2016-11-25] MEDS ORDERED: AcetaZOLAMIDE 250 MG TAB PO SCH (18:15)
--- NOTE | 2016-11-25 20:12 | PRG ---
DATE OF SERVICE: 11/25/2016 SERVICE: Pulmonary Medicine. INTERVAL HISTORY: The patient is doing great from a respiratory standpoint. She denies any current fevers, chills, nausea or vomiting. Otherwise, her breathing is much improved. She was able to ge t up into a chair today and this feels quite good. There were no overnight events. PHYSICAL EXAMINATION: VITAL SIGNS: Afebrile, pulse 80, blood pressure 156/69, respirations 20, saturation 92% on 5 liter s nasal cannula. GENERAL: Patient is awake and alert, in no apparent distress. LUNGS: Excellent air entry. There is no prolonged expiratory phase. Crackles are present depende ntly. HEART: Normal rate, regular. ABDOMEN: Soft, nontender, nondistended. Bowel sounds positive. MUSCULOSKELETAL: No cyanosis or clubbing. There is 3+ pitting in the bilateral lower extremities. Her right lower extremity is wrapped. LABORATORY DATA: WBC 9.3, hemoglobin 10.8, platelets 402,000. Chloride 92, sodium 139. Potassium 4.1. Bicarbonate is 38 and gently up trending. Creatinine 0.65, BUN 18. BNP remains elevated at 1 93. Right foot culture is growing Serratia, group G strep, and Proteus. These are essentially pans ensitive organisms. ASSESSMENT: 1. Acute on chronic hypoxic and hypercapnic respiratory failure. 2. Obesity hypoventilation syndrome. 3. Obstructive sleep apnea, likely. 4. Severe sepsis. 5. Cellulitis. PLAN: I will give her a dose of Diamox. We will continue the Lasix on an once daily basis. The yakelin corley remains significantly volume overloaded. She does have good blood pressure and I think she ca n tolerate additional doses of the diuretics. Pulmonary will continue to follow, and she will remai n in the IM for the time being. Noninvasive ventilation will be continued in the evenings while w e focus on mobilizing her as much as tolerated.
[2016-11-26] MEDS: Ibuprofen 800 MG TAB PO SCH ×3 (04:09→20:52)
[2016-11-26] MEDS: Acetaminophen/Codeine 30-300mg Tablet PO PRN ×3 (04:13→18:13)
[2016-11-26 05:14] LABS: Anion Gap 12 mmol/L (10-20); BUN (Urea Nitrogen) 18 mg/dL (7.0-18.7); Calc. Creatinine Clearance 257 mL/min (70-130); Calcium 9.3 mg/dL (7.8-10.44); Carbon Dioxide 36 mmol/L (22-29); Chloride 94 mmol/L (98-107); Estimated GFR-MDRD 87
--- NOTE | 2016-11-26 05:43 | PDOC.FM ---
- Subjective Subjective: pt reports she is feeling better today and has yet to be seen by physical therapy. She states her breathing is improved and denies cp, sob, and NVDC. She reports persistent bladder fullness, although urinary catheter was placed yesterday and she did report some relief of symptoms. She reports persistent rle pain. The wound vac is in place and is draining approx 20 mL of serosanguinous fluid in container present. Erythema persists over lle, infectious vs lymphedema vs venous stasis. - Objective Vital Signs & Weight: Vital Signs (12 hours) Temp Pulse Resp BP BP BP Pulse Ox 11/26/16 04:10 98.3 F 82 22 H 131/61 96 11/26/16 02:18 83 20 96 11/25/16 23:15 74 24 H 110/74 93 L 11/25/16 22:40 80 20 94 L 11/25/16 20:01 148/78 H 11/25/16 19:55 98.4 F 73 17 148/78 H 96 11/25/16 19:20 81 21 H 11/25/16 18:43 90 16 93 L Weight Admit Weight 166.468 kg Weight 169.9 kg Most Recent Monitor Data Heart Rate from ECG 73 NIBP 138/69 NIBP BP-Mean 109 Respiration from ECG 24 SpO2 87 I&O: 11/24/16 11/25/16 11/26/16 06:59 06:59 06:59 Intake Total 1440 1780 1350 Output Total 4070 3300 2800 Balance -6939 -2368 -1920 Result Diagrams: 11/25/16 04:43 11/26/16 04:22 <Mookie Hoyos - Last Filed: 11/26/16 07:36> - Objective Vital Signs & Weight: Vital Signs (12 hours) Temp Pulse Resp BP Pulse Ox 11/26/16 08:00 97.9 F 73 20 100 11/26/16 07:37 97.9 F 73 20 140/60 100 11/26/16 07:10 96 11/26/16 07:08 70 19 96 11/26/16 04:10 98.3 F 82 22 H 131/61 96 11/26/16 02:18 83 20 96 Weight Admit Weight 367 lb Weight 374 lb 9.046 oz Most Recent Monitor Data Heart Rate from ECG 73 NIBP 138/69 NIBP BP-Mean 109 Respiration from ECG 24 SpO2 87 I&O: 11/25/16 11/26/16 11/27/16 06:59 06:59 06:59 Intake Total 1780 1350 Output Total 3300 2800 Balance -1520 -1450 Result Diagrams: 11/25/16 04:43 11/26/16 04:22 <Ronald Muller - Last Filed: 11/26/16 11:20> Phys Exam - Physical Examination Constitutional: NAD morbidly obese HEENT: sclera anicteric pupils unequal, round reactive to light with accomodation Neck: no nodes Respiratory: no rales, no rhonchi, clear to auscultation bilateral diminished bases Cardiovascular: RRR, no significant murmur, no rub Gastrointestinal: positive bowel sounds protuberent Musculoskeletal: pulses present significant edema present 2+ Neurological: non-focal, moves all 4 limbs Deviation from normal: erythematous lle, rle in wound vac and wound dressing <Mookie Hoyos - Last Filed: 11/26/16 07:36> Dx/Plan (1) Acute respiratory failure with hypoxia and hypercapnia Code(s): J96.01 - ACUTE RESPIRATORY FAILURE WITH HYPOXIA; J96.02 - ACUTE RESPIRATORY FAILURE WITH HYPERCAPNIA Status: Acute Plan: Echo showed elevated pulmonary pressure No evidence of HF BiPap as needed @ night on 5L NC this AM, maintain sats >88% sit up in chair throughout day as pt decompensates when <30 degrees continue lasix per pulmonology recs required intermittent bipap last night pt reports she sleeps in recliner at home and has been laying flatter in the hospital abg consistent with chronic hypercapnea instructed pt she is allowed to sleep in a reclined position as she would at home she would likely require cpap at home, unfortunately she is unfunded (2) Cellulitis of right lower extremity Code(s): L03.115 - CELLULITIS OF RIGHT LOWER LIMB Status: Acute Plan: Continue wound vac while inpatient wet to dry dressing once ready for discharge, per surgery recs continue abx, white count trended down, cipro keflex on discharge f/u w/ gen surg in 3-4 weeks post discharge (3) Hypertension Code(s): I10 - ESSENTIAL (PRIMARY) HYPERTENSION Status: Acute Qualifiers: Hypertension type: unspecified Qualified Code(s): I10 - Essential (primary ) hypertension Plan: contniue lisinopril 20 BID (4) Necrosis of toe Code(s): I96 - GANGRENE, NOT ELSEWHERE CLASSIFIED Status: Acute Plan: wet to dry dressing once op continue care per surgery recommendations continue abx (5) Chronic hypercapnic respiratory failure Code(s): J96.12 - CHRONIC RESPIRATORY FAILURE WITH HYPERCAPNIA Status: Chronic Plan: titrate O2 to above 88% may require use of BiPap at night consider cpap (6) DM2 (diabetes mellitus, type 2) Status: Chronic Qualifiers: Diabetes mellitus complication status: with unspecified complications Diabetes mellitus senior living insulin use: without ferry terminal agent use Qualified Code( s): E11.8 - Type 2 diabetes mellitus with unspecified complications Plan: continue SSI (7) HLD (hyperlipidemia) Code(s): E78.5 - HYPERLIPIDEMIA, UNSPECIFIED Status: Chronic Qualifiers: Hyperlipidemia type: unspecified Qualified Code(s): E78.5 - Hyperlipidemia , unspecified Plan: continue statin (8) Lymphedema of both lower extremities Code(s): I89.0 - LYMPHEDEMA, NOT ELSEWHERE CLASSIFIED Status: Chronic Plan: continue lasix per pulm recommendations given diamox one time dose (9) Morbid obesity Code(s): E66.01 - MORBID (SEVERE) OBESITY DUE TO EXCESS CALORIES Status: Chronic Plan: HH diet <Mookie Hoyos - Last Filed: 11/26/16 07:36> Attending Addendum - Attending Addendum I personally evaluated the patient and discussed the management with resident[] I agree with the History, Examination, Assessment and Plan documented above with any addition or exceptions noted below. <Ronald Muller - Last Filed: 11/26/16 11:20>
[2016-11-26] MEDS: Docusate 100 MG CAP PO SCH ×2 (08:04→20:52)
[2016-11-26] MEDS: Gabapentin 400 MG CAP PO SCH ×3 (08:10→20:53)
[2016-11-26] MEDS: Lisinopril 20 MG TAB PO SCH ×2 (08:11→20:53)
[2016-11-26] MEDS: Carvedilol 25 MG TAB PO SCH ×2 (08:11→18:07)
[2016-11-26] MEDS: Enoxaparin Sodium 40 MG/0.4 ML SYRINGE SC SCH (08:11)
[2016-11-26] MEDS: Nicotine 21 MG PATCH TD SCH (08:12)
[2016-11-26] MEDS: Fluticasone Propionate Nasal Spray 16 gm Bottle NASAL SCH (08:12)
[2016-11-26] MEDS ORDERED: Furosemide 40 MG/4 ML VIAL SLOW IVP SCH (09:00)
--- NOTE | 2016-11-26 18:17 | PRG ---
DATE OF SERVICE: 11/26/2016 SERVICE: Pulmonary Medicine. INTERVAL HISTORY: The patient is doing great from a cardiovascular and respiratory standpoint. She is breathing comfortably. Her lower extremity swelling is a little bit better. She continues to b e significantly volume overloaded. She complains of cough with a little bit of yellow sputum. That being said, Overall, she feels better. There were no overnight events. PHYSICAL EXAMINATION: VITAL SIGNS: Afebrile, pulse 81, blood pressure 129/75, respirations 22, saturation 97% on 5 liters nasal cannula. HEENT: Normocephalic, atraumatic. Sclerae are white, conjunctivae pink. Oral and nasal mucosa is moist without lesions. LUNGS: Decreased air entry, but with no prolonged expiratory phase. There is no wheezing or rhonch i present. Crackles are present dependently. HEART: Normal rate, regular. ABDOMEN: Soft, nontender, nondistended, bowel sounds positive. MUSCULOSKELETAL: No cyanosis or clubbing. There is 2+ pitting in the bilateral lower extremities. NEUROLOGIC: Grossly nonfocal. LABORATORY DATA: Bicarbonate 36. Basic metabolic profile is otherwise unremarkable. Magnesium is normal. Cultures were reviewed. ASSESSMENT: 1. Acute on chronic hypoxic and hypercapnic respiratory failure. 2. Obesity hypoventilation syndrome. 3. Obstructive sleep apnea, suspected. 4. Severe sepsis. 5. 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 PLAN: We will continue to diurese the patient as she remains volume overloaded. This can be done s lowly. Pulmonary Critical Care will continue to follow, but from my perspective, she is stable for transition out of the [facility]. Dr. Yao will resume care in the morning.
[2016-11-27] MEDS: Acetaminophen/Codeine 30-300mg Tablet PO PRN ×2 (00:55→08:34)
[2016-11-27 05:28] LABS: BUN (Urea Nitrogen) 19 mg/dL (7.0-18.7); Calc. Creatinine Clearance 245 mL/min (70-130); Calcium 9.3 mg/dL (7.8-10.44); Estimated GFR-MDRD 81; Magnesium 1.9 mg/dL (1.6-2.6)
[2016-11-27 05:37] LABS: Anion Gap 16 mmol/L (10-20); Carbon Dioxide 32 mmol/L (22-29); Chloride 93 mmol/L (98-107)
[2016-11-27] MEDS: Ibuprofen 800 MG TAB PO SCH ×3 (06:14→21:39)
--- NOTE | 2016-11-27 07:49 | PDOC.FM ---
- Subjective Subjective: Patient states she is feeling well today. She said that she has been out of bed with PT, sat in chair. She is still having pain, but states its tolerable. Breathing is easy, though she did have 4 hour of bipap last night. - Objective Vital Signs & Weight: Vital Signs (12 hours) Temp Pulse Resp BP BP BP Pulse Ox 11/27/16 07:14 98.0 F 75 20 117/64 96 11/27/16 04:00 97.7 F 87 18 127/59 L 92 L 11/27/16 02:29 96 11/27/16 00:40 89 20 11/27/16 00:00 98 F 69 18 140/75 99 11/26/16 22:23 88 16 11/26/16 21:00 92 18 11/26/16 20:53 135/60 11/26/16 20:00 97.8 F 76 18 135/60 100 Weight Admit Weight 166.468 kg Weight 173 kg Most Recent Monitor Data Heart Rate from ECG 73 NIBP 138/69 NIBP BP-Mean 109 Respiration from ECG 24 SpO2 87 I&O: 11/26/16 11/27/16 11/28/16 06:59 06:59 06:59 Intake Total 1350 2345 Output Total 2800 2575 Balance -1450 -230 Result Diagrams: 11/25/16 04:43 11/27/16 04:12 <Dean Dunbar M - Last Filed: 11/27/16 11:05> - Objective Vital Signs & Weight: Vital Signs (12 hours) Temp Pulse Resp BP BP BP BP 11/27/16 13:51 93 14 11/27/16 11:21 98.5 F 88 20 11/27/16 11:00 88 20 11/27/16 10:35 98.5 F 83 20 11/27/16 10:28 75 20 11/27/16 09:20 122/76 108/48 L 11/27/16 08:31 117/64 11/27/16 07:44 98.0 F 75 20 11/27/16 07:14 98.0 F 75 20 117/64 BP Pulse Ox Pulse Ox Pulse Ox 11/27/16 13:51 86 L 11/27/16 11:21 84 L 11/27/16 11:00 84 L 11/27/16 10:35 97/61 83 L 11/27/16 10:28 11/27/16 09:20 91 L 90 L 11/27/16 08:31 11/27/16 07:44 96 11/27/16 07:14 96 Weight Admit Weight 166.468 kg Weight 173 kg Most Recent Monitor Data Heart Rate from ECG 73 NIBP 138/69 NIBP BP-Mean 109 Respiration from ECG 24 SpO2 87 I&O: 11/26/16 11/27/16 11/28/16 06:59 06:59 06:59 Intake Total 1350 2345 940 Output Total 2800 2575 700 Balance -1450 -230 240 Result Diagrams: 11/25/16 04:43 11/27/16 04:12 <Emilie Serna - Last Filed: 11/27/16 18:47> Phys Exam - Physical Examination Constitutional: NAD HEENT: moist MMs Neck: no nodes, supple Respiratory: no rales, no rhonchi Mild wheezing Cardiovascular: RRR, no significant murmur, no rub Gastrointestinal: soft, no distention, positive bowel sounds Musculoskeletal: edema present Mild chronic redness in bilat lower extremeties Neurological: non-focal, moves all 4 limbs Lymphatic: no nodes Psychiatric: normal affect Skin: no rash <Dean Dunbar M - Last Filed: 11/27/16 11:05> Dx/Plan (1) Acute respiratory failure with hypoxia and hypercapnia Code(s): J96.01 - ACUTE RESPIRATORY FAILURE WITH HYPOXIA; J96.02 - ACUTE RESPIRATORY FAILURE WITH HYPERCAPNIA Status: Acute Plan: Extubated today, satting low 90 on 15L O2 via max., will monitor and wean. Currently being worked up as possible heart failure. 11/21 - Extubated, sating well, O2 requirement decreased to 3.5 L on NC - Patient is more mentally awake then yesterday. - Plan to continue to wean O2, transfer to floor, advise on tobacco cessation 11/22 - No change on O2 from yesterday - Patient is speaking easily with no labored breathing - Pt to sit in chair TID, use incentive spirometry and work with PT today - Likely O2 on discharge 11/23 - Will continue titration. Will consider starting a blood gas. - Will continue lasix. - Will contact card for echo. 11/24 - Echo came back with elevated pulm artery pressure. - EF was normal, no read of heart failure, but still concerning for elevate pulmonary pressure - Currently, patient is doing better, back on NC. She will need to see pulm outpatient for sleep study. 11/27 - Needed minimal 4 hour bipap last night - Plan to floor, switch to cpap - Patient is more functional, out of bed. (2) Abscess of right leg Code(s): L02.415 - CUTANEOUS ABSCESS OF RIGHT LOWER LIMB Status: Acute Plan: Likely will de-escalate to levaquin based on sensitivity. Kidney function is good, will monitor as patient transitioned to levaquin. Continue wound care. 11/21 - Improving, but causes pain for patient. Will continue pain control. Will try adding NSAID - Surg feels wound is healing well, will continue to follow recs - ID recs cipro and keflex on discharge. 11/22 - Improving at this time, continue with wound vac and abx 11/23 - Improving, continue current plan. 11/24 - Improving, she will need cipro/keflex on discharge. - Day 7 of abx 11/27 - Continuing, abx, improving. (3) Hypertension Code(s): I10 - ESSENTIAL (PRIMARY) HYPERTENSION Status: Acute Qualifiers: Hypertension type: unspecified Qualified Code(s): I10 - Essential (primary ) hypertension Plan: BP was in upper 150, has recently elevated with extubation. - Plan to titrate bp meds. 11/21 - BP was elevated overnight, was controlled with prn labetalol - Increasing lisinopril today to 20. - Continue lasix and coreg. 11/22 - Continue with current medication. - Evaluate lasix use as needed 11/23 - Not controlled, increasing patient's lisinopril to 40, will increase coreg next. 11/24 - Better controlled after lisinopril 20 bid. Will continue with current meds. 11/27 - BP under control. Continue lisinopril. WALTER may play a part, echo shows pulm artery hypertension. (4) Necrosis of toe Code(s): I96 - GANGRENE, NOT ELSEWHERE CLASSIFIED Status: Acute Plan: POD #3 - Plant is to follow up with surg rec. Will adjust abx as mentioned above. Wound care consulted. 11/21 - POD #3, follow with Surg recs, but it is improving based on surg's impression. - COntinue pain and current abx 11/22 - Day 4, continue with surg rec, pain control. 11/23 - Continue with surg recs. Recommended wet to dry dressing as outpatient. 11/24 - COntinue current plan. No new changes to her assessment. 11/27 - Continue with wound care, wet to dry dressing at home (5) Chronic hypercapnic respiratory failure Code(s): J96.12 - CHRONIC RESPIRATORY FAILURE WITH HYPERCAPNIA Status: Chronic Plan: - Likely a chronic problem with elevated bicarb in 30's. Patient also has obesity, possible WALTER, thought not diagnosised. - Plan is to continue with O2 supplementation. Patient did indicate she doesn't use O2 at baseline today. - May need O2 at home. 11/21 - Patient has 35 year smoking history with wheezing on exam. - Chronic issue with elevated bicarb. Treatment with breathing treatment and supplemental oxygen. 11/22 - Likely o2 on discharge - Rec to patient that she need pulm/sleep study as outpatient. 11/23 - Will start on nightly cpap, recommend pulm follow up outpatient. 11/24 - Keep on current plan. 11/27 - Bipap requirement down, transition cpap at night - Talked with patient why her diet is restricted, she is agreeable that low fat diet is appropriate. (6) DM2 (diabetes mellitus, type 2) Status: Chronic Qualifiers: Diabetes mellitus complication status: with unspecified complications Diabetes mellitus intermodal dispatcher insulin use: without intermodal dispatcher use Qualified Code( s): E11.8 - Type 2 diabetes mellitus with unspecified complications Plan: A1c of 6.4. Her glucose during this stay has been acceptable - Will keep on SSI. Consider adding atorvastin 40, and metformin on discharge. 11/21 - Continue SSI. Add atorvastatin. 11/22 - Continue with current medication. 11/23 - Continue current plan. 11/24 - Continue with SSI. BG is controlled at this time. 11/27 - Continue with SSI. (7) HLD (hyperlipidemia) Code(s): E78.5 - HYPERLIPIDEMIA, UNSPECIFIED Status: Chronic Qualifiers: Hyperlipidemia type: unspecified Qualified Code(s): E78.5 - Hyperlipidemia , unspecified Plan: - Atorvastatin, recommend follow up with pcp 11/23 - Continue with atorvastatin 11/24 - Continue plan. 11/27 - Continue with plan. (8) Lymphedema of both lower extremities Code(s): I89.0 - LYMPHEDEMA, NOT ELSEWHERE CLASSIFIED Status: Chronic Plan: - Will get echo, patient had 20 of lasix yesterday - Plan today is discontinue IV fluid, lasix. Will still get echo. 11/21 - Patient received echo, awaiting read. 11/22 - Awaiting echo read 11/23 - Contacting card for echo read 11/24 - No congestive heart failure noted on echo, but she does have elevated pulm artery 11/27 - Now on diamox instead of lasix. (9) Morbid obesity Code(s): E66.01 - MORBID (SEVERE) OBESITY DUE TO EXCESS CALORIES Status: Chronic Plan: - Special Educator patient on discharge 11/21 - Advance to HH diet. - dual rate dealer on discharge 11/22 - Unchanged plan 11/23 - Special Educator on discharge 11/24 - Continue plan 11/27 - Continue with plan. (10) Tobacco abuse Code(s): Z72.0 - TOBACCO USE Status: Chronic Plan: - Special Educator patient on discharge. 11/21 - Increased her nicotine patch to 21 due to extensive smoking - Special Educator on discharge 11/22 - Unchanged plan 11/23 - Special Educator on discharge 11/24 - Continue plan 11/27 - Continue plan. <Dean Dunbar - Last Filed: 11/27/16 11:05> Attending Addendum - Attending Addendum I personally evaluated the patient and discussed the management with Dr. Dunbar. I agree with the History, Examination, Assessment and Plan documented above with any addition or exceptions noted below. The patient is sitting up in a chair and notes she was able to walk to the window and back. She is still requiring O2. Will try to titrate. Continue antibiotics. Working towards patient not using cpap as she will not be able to get this at home. <Emilie Serna - Last Filed: 11/27/16 18:47>
--- NOTE | 2016-11-27 08:10 | PRG ---
DATE OF SERVICE: 11/27/2016 SUBJECTIVE: Ms. Oliveira remains in the intermediate care unit. She has done extremely well over t . She says she is ready to get up and try to walk. PHYSICAL EXAMINATION: VITAL SIGNS: Temperature is 98.0, pulse 75, respirations 20, O2 sat 96% on 5 liters, blood pressure 117/64. HEENT: Unremarkable. NECK: Without JVD. She has a right IJ line in place. LUNGS: Clear to auscultation without wheezing. CARDIAC: S1 and S2 regular. ABDOMEN: Soft and nontender. EXTREMITIES: No edema. LABORATORY DATA: Sodium 137, potassium 4, chloride 93, CO2 32, BUN 19, creatinine 0.7, glucose 92. White blood cell count 9.3, hematocrit 36, platelet count 402. ASSESSMENT: 1. Status post septic shock secondary to gangrenous toe. 2. Morbid obesity. 3. Probable underlying sleep apnea. 4. Fluid overload. PLAN: 1. Discontinue the central line. 2. Start her on oral Diamox and discontinue the Lasix. 3. Moved to the floor, she can wear BiPAP at night as needed for sleep apnea. Ultimately, it would be best to have her off BiPAP, because she is not going to qualify for sleep study as an outpatient because she is unfunded.
[2016-11-27] MEDS: Enoxaparin Sodium 40 MG/0.4 ML SYRINGE SC SCH (08:30)
[2016-11-27] MEDS: Nicotine 21 MG PATCH TD SCH (08:30)
[2016-11-27] MEDS: Gabapentin 400 MG CAP PO SCH ×3 (08:31→21:39)
[2016-11-27] MEDS: AcetaZOLAMIDE 250 MG TAB PO SCH ×2 (08:31→21:39)
[2016-11-27] MEDS: Docusate 100 MG CAP PO SCH ×2 (08:31→21:40)
[2016-11-27] MEDS: Carvedilol 25 MG TAB PO SCH ×2 (08:31→17:56)
[2016-11-27] MEDS: Lisinopril 20 MG TAB PO SCH ×2 (08:31→21:39)
[2016-11-27] MEDS: Fluticasone Propionate Nasal Spray 16 gm Bottle NASAL SCH (09:26)
--- NOTE | 2016-11-27 17:00 | PRG ---
DATE OF SERVICE: 11/27/2016 SUBJECTIVE: Ms. Oliveira is having difficulty in voiding, but has been already one voiding trial wh ich failed and now she is supposed to have in and out catheterization, but the nurse could not find it written as an order. The patient otherwise is having moderate pain in the lower extremities. No respiratory symptoms. PHYSICAL EXAMINATION: VITAL SIGNS: T-max 98.5, blood pressure 97/61, pulse 93, respirations 14-20, O2 saturation 86%. GENERAL APPEARANCE: She appears plethoric but oriented. HEENT: Her ocular movements are conjugate. Sclerae white. Oral cavity moist. LUNGS: With symmetric air entry. S1, S2, regular rate. ABDOMEN: Protuberant. There is evidence of bladder distention. EXTREMITIES: There is erythema in lower extremities, more intense on the right leg. Negative press ure dressing around the fourth toe amputation site. LABORATORY DATA: White cell count 9.3, hemoglobin 10.8, and platelets 402. Chemistry with creatini ne of 0.76. Microbiology with serratia, group G Streptococcus, Proteus mirabilis, and group G strep in 2 differe nt samples. The pathology of the surgical specimen reveals gangrene with osteomyelitis and inflamma tion extends into the soft tissue margins of resection. ASSESSMENT AND DISCUSSION: Type 2 diabetes with chronic smoking and hypoxic hypercapnic respiratory failure and right lower extremity cellulitis with right fourth toe necrotizing infection status pos t amputation with compromised margin of amputation. Polymicrobial and foot infections including elmer up G strep on two different gram negatives. We will switch back to Rocephin in view of the persiste nce of inflammatory process and the group G Streptococcus isolated. The patient will need protocol for q.4 bladder scanning and in and out catheterization as needed.
[2016-11-27] MEDS: cefTRIAXone\\ROCEPHIN 1 GM in Sodium Chloride 0.9% 100 ML IVPB SCH (18:45)
[2016-11-28] MEDS: Ibuprofen 800 MG TAB PO SCH ×3 (05:12→21:39)
[2016-11-28 06:08] LABS: Anion Gap 11 mmol/L (10-20); BUN (Urea Nitrogen) 19 mg/dL (7.0-18.7); Calc. Creatinine Clearance 258 mL/min (70-130); Calcium 9.4 mg/dL (7.8-10.44); Carbon Dioxide 36 mmol/L (22-29); Chloride 95 mmol/L (98-107); Estimated GFR-MDRD 86; Magnesium 1.9 mg/dL (1.6-2.6)
--- NOTE | 2016-11-28 07:17 | PRG ---
DATE OF SERVICE: 11/28/2016 The patient is awake and alert. She states that she feels like she has retained too much fluid. PHYSICAL EXAMINATION: VITAL SIGNS: Temperature 97.7, pulse 74, respirations 18, O2 sat 94% on 5 liters, blood pressure 12 1/85. Total intake for the last 24 hours 205, total output 2250, weight 381 pounds. HEENT: Unremarkable. NECK: No JVD. CHEST: Fairly clear. CARDIAC: S1 and S2 regular. ABDOMEN: Soft. EXTREMITIES: Edematous. LABORATORY DATA: Sodium 138, potassium 3.9, chloride 95, CO2 36, BUN 19, creatinine 0.7, glucose 94 . ASSESSMENT: 1. Chronic hypoxic respiratory failure. 2. Likely underlying obstructive sleep apnea. 3. Status post septic shock secondary to gangrenous toe. 4. Morbid obesity. PLAN: She has gained a considerable amount of weight, which I would anticipate being secondary to f luid overload. She needs more aggressive diuresis than what she is getting. In addition the acetaz ursula will start her back on the furosemide IV. Her electrolytes will need to be followed closely on this.
[2016-11-28] MEDS: Nicotine 21 MG PATCH TD SCH (10:21)
[2016-11-28] MEDS: Furosemide 20 MG/2 ML VIAL IVP SCH ×2 (10:22→21:39)
[2016-11-28] MEDS: Lisinopril 20 MG TAB PO SCH ×2 (10:24→21:39)
[2016-11-28] MEDS: Carvedilol 25 MG TAB PO SCH ×2 (10:25→17:21)
[2016-11-28] MEDS: acetaZOLAMIDE Sodium 500 mg Vial IVP SCH ×2 (10:25→21:38)
[2016-11-28] MEDS: Docusate 100 MG CAP PO SCH ×2 (10:25→21:40)
[2016-11-28] MEDS: Gabapentin 400 MG CAP PO SCH ×3 (10:25→21:39)
[2016-11-28] MEDS: Enoxaparin Sodium 40 MG/0.4 ML SYRINGE SC SCH (10:26)
[2016-11-28] MEDS: Chloraseptic Spray 180 ml Bottle PO PRN (10:27)
[2016-11-28] MEDS ORDERED: Sterile Water 10 ML ONE (10:33)
[2016-11-28] MEDS: Acetaminophen/Codeine 30-300mg Tablet PO PRN ×2 (10:42→17:21)
--- NOTE | 2016-11-28 10:42 | PDOC.FM ---
- Subjective Subjective: Patient is improving, did need cpap last night for 7 hours. She is up out of bed and walking. Her diuresis was adjusted with addition of lasix back with the diamox. She states she is otherwise feeling better except for the continued benitez use. Failed trial without benitez cath yesterday. - Objective MAR Reviewed: Yes Vital Signs & Weight: Vital Signs (12 hours) Temp Pulse Resp BP BP BP Pulse Ox 11/28/16 10:24 128/76 11/28/16 10:21 83 16 93 L 11/28/16 08:21 97.8 F 84 16 128/76 93 L 11/28/16 06:44 74 18 94 L 11/28/16 04:46 97.7 F 77 20 121/82 87 L 11/28/16 02:30 75 19 91 L 11/28/16 02:28 75 19 91 L 11/28/16 00:19 97.7 F 75 16 113/67 90 L Weight Admit Weight 166.468 kg Weight 172.819 kg Most Recent Monitor Data Heart Rate from ECG 73 NIBP 138/69 NIBP BP-Mean 109 Respiration from ECG 24 SpO2 87 I&O: 11/27/16 11/28/16 11/29/16 06:59 06:59 06:59 Intake Total 2345 2050 Output Total 2575 2250 1 Balance -230 -200 -1 Result Diagrams: 11/25/16 04:43 11/28/16 04:51 <BettinaDean M - Last Filed: 11/28/16 10:40> - Objective Vital Signs & Weight: Vital Signs (12 hours) Temp Pulse Resp BP BP BP Pulse Ox 11/28/16 10:24 128/76 11/28/16 10:21 83 16 93 L 11/28/16 08:21 97.8 F 84 16 128/76 93 L 11/28/16 06:44 74 18 94 L 11/28/16 04:46 97.7 F 77 20 121/82 87 L 11/28/16 02:30 75 19 91 L 11/28/16 02:28 75 19 91 L 11/28/16 00:19 97.7 F 75 16 113/67 90 L Weight Admit Weight 166.468 kg Weight 172.819 kg Most Recent Monitor Data Heart Rate from ECG 73 NIBP 138/69 NIBP BP-Mean 109 Respiration from ECG 24 SpO2 87 I&O: 11/27/16 11/28/16 11/29/16 06:59 06:59 06:59 Intake Total 2345 2050 Output Total 6045 2250 1 Balance -230 -200 -1 Result Diagrams: 11/25/16 04:43 11/28/16 04:51 <KareemEmilie - Last Filed: 11/28/16 10:55> Phys Exam - Physical Examination Constitutional: NAD HEENT: moist MMs Neck: no nodes, supple Diminished breath sounds Cardiovascular: RRR Gastrointestinal: soft, non-tender, positive bowel sounds Edema present, appear same level Neurological: moves all 4 limbs Lymphatic: no nodes Psychiatric: normal affect Deviation from normal: Stasis dermatitis rash <Dean Dunbar M - Last Filed: 11/28/16 10:40> Dx/Plan (1) Acute respiratory failure with hypoxia and hypercapnia Code(s): J96.01 - ACUTE RESPIRATORY FAILURE WITH HYPOXIA; J96.02 - ACUTE RESPIRATORY FAILURE WITH HYPERCAPNIA Status: Acute Plan: Extubated today, satting low 90 on 15L O2 via max., will monitor and wean. Currently being worked up as possible heart failure. 11/21 - Extubated, sating well, O2 requirement decreased to 3.5 L on NC - Patient is more mentally awake then yesterday. - Plan to continue to wean O2, transfer to floor, advise on tobacco cessation 11/22 - No change on O2 from yesterday - Patient is speaking easily with no labored breathing - Pt to sit in chair TID, use incentive spirometry and work with PT today - Likely O2 on discharge 11/23 - Will continue titration. Will consider starting a blood gas. - Will continue lasix. - Will contact card for echo. 11/24 - Echo came back with elevated pulm artery pressure. - EF was normal, no read of heart failure, but still concerning for elevate pulmonary pressure - Currently, patient is doing better, back on NC. She will need to see pulm outpatient for sleep study. 11/27 - Needed minimal 4 hour bipap last night - Plan to floor, switch to cpap - Patient is more functional, out of bed. 11/28 - Switching to cpap - Patient is at same level of oxygenation while awake, 5 L NC requirement - She is getting out of bed and more active (2) Abscess of right leg Code(s): L02.415 - CUTANEOUS ABSCESS OF RIGHT LOWER LIMB Status: Acute Plan: Likely will de-escalate to levaquin based on sensitivity. Kidney function is good, will monitor as patient transitioned to levaquin. Continue wound care. 11/21 - Improving, but causes pain for patient. Will continue pain control. Will try adding NSAID - Surg feels wound is healing well, will continue to follow recs - ID recs cipro and keflex on discharge. 11/22 - Improving at this time, continue with wound vac and abx 11/23 - Improving, continue current plan. 11/24 - Improving, she will need cipro/keflex on discharge. - Day 7 of abx 11/27 - Continuing, abx, improving. 11/28 - Adding ceftriaxone onto levaquin after b iopsy result shows gangrene (3) Hypertension Code(s): I10 - ESSENTIAL (PRIMARY) HYPERTENSION Status: Acute Qualifiers: Hypertension type: unspecified Qualified Code(s): I10 - Essential (primary ) hypertension Plan: BP was in upper 150, has recently elevated with extubation. - Plan to titrate bp meds. 11/21 - BP was elevated overnight, was controlled with prn labetalol - Increasing lisinopril today to 20. - Continue lasix and coreg. 11/22 - Continue with current medication. - Evaluate lasix use as needed 11/23 - Not controlled, increasing patient's lisinopril to 40, will increase coreg next. 11/24 - Better controlled after lisinopril 20 bid. Will continue with current meds. 11/27 - BP under control. Continue lisinopril. WALTER may play a part, echo shows pulm artery hypertension. 11/28 - Continue current management. BP is at good control. (4) Necrosis of toe Code(s): I96 - GANGRENE, NOT ELSEWHERE CLASSIFIED Status: Acute Plan: POD #3 - Plant is to follow up with surg rec. Will adjust abx as mentioned above. Wound care consulted. 11/21 - POD #3, follow with Surg recs, but it is improving based on surg's impression. - COntinue pain and current abx 11/22 - Day 4, continue with surg rec, pain control. 11/23 - Continue with surg recs. Recommended wet to dry dressing as outpatient. 11/24 - COntinue current plan. No new changes to her assessment. 11/27 - Continue with wound care, wet to dry dressing at home 11/28 - Biopsy result returned. Adding ceftriaxone. Consult with ID to see if this will need to be continued on discharged (5) Chronic hypercapnic respiratory failure Code(s): J96.12 - CHRONIC RESPIRATORY FAILURE WITH HYPERCAPNIA Status: Chronic Plan: - Likely a chronic problem with elevated bicarb in 30's. Patient also has obesity, possible WALTER, thought not diagnosised. - Plan is to continue with O2 supplementation. Patient did indicate she doesn't use O2 at baseline today. - May need O2 at home. 11/21 - Patient has 35 year smoking history with wheezing on exam. - Chronic issue with elevated bicarb. Treatment with breathing treatment and supplemental oxygen. 11/22 - Likely o2 on discharge - Rec to patient that she need pulm/sleep study as outpatient. 11/23 - Will start on nightly cpap, recommend pulm follow up outpatient. 11/24 - Keep on current plan. 11/27 - Bipap requirement down, transition cpap at night - Talked with patient why her diet is restricted, she is agreeable that low fat diet is appropriate. - Chronic issue, continue with current management. (6) DM2 (diabetes mellitus, type 2) Status: Chronic Qualifiers: Diabetes mellitus complication status: with unspecified complications Diabetes mellitus halfway insulin use: without meterman use Qualified Code( s): E11.8 - Type 2 diabetes mellitus with unspecified complications Plan: A1c of 6.4. Her glucose during this stay has been acceptable - Will keep on SSI. Consider adding atorvastin 40, and metformin on discharge. 11/21 - Continue SSI. Add atorvastatin. 11/22 - Continue with current medication. 11/23 - Continue current plan. 11/24 - Continue with SSI. BG is controlled at this time. 11/27 - Continue with SSI. - Continue with plan. Glucose at good control. (7) HLD (hyperlipidemia) Code(s): E78.5 - HYPERLIPIDEMIA, UNSPECIFIED Status: Chronic Qualifiers: Hyperlipidemia type: unspecified Qualified Code(s): E78.5 - Hyperlipidemia , unspecified Plan: - Atorvastatin, recommend follow up with pcp 11/23 - Continue with atorvastatin 11/24 - Continue plan. 11/27 - Continue with plan. - Continue with atrovastatin and HH diet (8) Lymphedema of both lower extremities Code(s): I89.0 - LYMPHEDEMA, NOT ELSEWHERE CLASSIFIED Status: Chronic Plan: - Will get echo, patient had 20 of lasix yesterday - Plan today is discontinue IV fluid, lasix. Will still get echo. 11/21 - Patient received echo, awaiting read. 11/22 - Awaiting echo read 11/23 - Contacting card for echo read 11/24 - No congestive heart failure noted on echo, but she does have elevated pulm artery 11/27 - Now on diamox instead of lasix. 11/28 - On both diamox and lasix. There is some concern that she may be gaining weight. Her current weight doesn't show much change from admission weight but bed scale may be completely accurate (9) Morbid obesity Code(s): E66.01 - MORBID (SEVERE) OBESITY DUE TO EXCESS CALORIES Status: Chronic Plan: - Radio Director patient on discharge 11/21 - Advance to diet. - tub tender on discharge 11/22 - Unchanged plan 11/23 - Radio Director on discharge 11/24 - Continue plan 11/27 - Continue with plan. 11/28 - Unchanged. 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 11/21 - Increased her nicotine patch to 21 due to extensive smoking - Radio Director on discharge 11/22 - Unchanged plan 11/23 - Radio Director on discharge 11/24 - Continue plan 11/27 - Continue plan. 11/28 - COntinue nicotine patch <Dean Dunbar - Last Filed: 11/28/16 10:40> Attending Addendum - Attending Addendum I personally evaluated the patient and discussed the management with Dr. Dunbar. I agree with the History, Examination, Assessment and Plan documented above with any addition or exceptions noted below. The patient states she is slowly starting to feel better. She complains of abdominal tightness and increased fluid. She is on diamox and IV lasix is being added back as well. Will still try to d/c benitez and do I/O caths with bladder scans q 4 hrs. Encouraged continued activity and to stay up out of bed as much as possible. <Emilie Serna - Last Filed: 11/28/16 10:55>
[2016-11-28] MEDS: Fluticasone Propionate Nasal Spray 16 gm Bottle NASAL SCH (17:09)
[2016-11-28] MEDS: cefTRIAXone\\ROCEPHIN 1 GM in Sodium Chloride 0.9% 100 ML IVPB SCH (17:21)
[2016-11-29] MEDS: Ibuprofen 800 MG TAB PO SCH ×3 (05:08→23:56)
[2016-11-29 06:42] LABS: Anion Gap 15 mmol/L (10-20); BUN (Urea Nitrogen) 21 mg/dL (7.0-18.7); Calc. Creatinine Clearance 248 mL/min (70-130); Calcium 9.7 mg/dL (7.8-10.44); Carbon Dioxide 28 mmol/L (22-29); Chloride 100 mmol/L (98-107); Estimated GFR-MDRD 82
--- NOTE | 2016-11-29 08:09 | PRG ---
DATE OF SERVICE: 11/29/2016 The patient says she is doing fairly well. She had no acute complaints. PHYSICAL EXAMINATION: VITAL SIGNS: Temperature 98.1, pulse 85, respirations 19, O2 sat 94% on 5 liters. HEENT: Unremarkable. NECK: No JVD. LUNGS: Coarse rhonchi. CARDIOVASCULAR: S1, S2 regular. ABDOMEN: Soft, nontender. EXTREMITIES: Swelling in both lower extremities. LABORATORY DATA: Sodium 138, potassium 5, chloride 100, CO2 28, BUN 21, creatinine 0.7, glucose 98. ASSESSMENT: 1. Chronic hypoxic respiratory failure. 2. Likely underlying obstructive sleep apnea. 3. Status post septic shock secondary to gangrenous toe. 4. Morbid obesity. PLAN: 1. Increase activity as tolerated. 2. Continue diuretics. 3. Need to start thinking about placement if that it is possible.
[2016-11-29] MEDS: Docusate 100 MG CAP PO SCH (09:59)
[2016-11-29] MEDS: Acetaminophen/Codeine 30-300mg Tablet PO PRN (10:02)
[2016-11-29] MEDS: Carvedilol 25 MG TAB PO SCH ×2 (10:02→17:03)
[2016-11-29] MEDS: Lisinopril 20 MG TAB PO SCH ×2 (10:03→22:35)
[2016-11-29] MEDS: Gabapentin 400 MG CAP PO SCH ×2 (10:03→14:30)
[2016-11-29] MEDS: Furosemide 20 MG/2 ML VIAL IVP SCH ×2 (10:03→22:36)
[2016-11-29] MEDS: Enoxaparin Sodium 40 MG/0.4 ML SYRINGE SC SCH (10:04)
[2016-11-29] MEDS: acetaZOLAMIDE Sodium 500 mg Vial IVP SCH ×2 (10:04→22:37)
[2016-11-29] MEDS: Fluticasone Propionate Nasal Spray 16 gm Bottle NASAL SCH (10:04)
[2016-11-29] MEDS: Nicotine 21 MG PATCH TD SCH (10:05)
[2016-11-29] MEDS: Sterile Water 10 ML VIAL FS SCH ×2 (10:06→22:38)
--- NOTE | 2016-11-29 10:33 | PDOC.FM ---
- Subjective Subjective: Patient improving, not on bipap last night, off of benitez cath, walking now. - Objective MAR Reviewed: Yes Vital Signs & Weight: Vital Signs (12 hours) Temp Pulse Resp BP BP Pulse Ox 11/29/16 10:03 123/83 11/29/16 07:55 97.8 F 76 24 H 123/83 92 L 11/29/16 07:15 87 20 95 11/29/16 04:55 98.1 F 85 19 120/78 94 L 11/29/16 03:15 85 16 94 L 11/28/16 22:54 81 16 89 L Weight Admit Weight 166.468 kg Weight 172.819 kg Most Recent Monitor Data Heart Rate from ECG 73 NIBP 138/69 NIBP BP-Mean 109 Respiration from ECG 24 SpO2 87 I&O: 11/28/16 11/29/16 11/30/16 06:59 06:59 06:59 Intake Total 2049 1819 Output Total 2250 5252 Balance -200 -3432 Result Diagrams: 11/25/16 04:43 11/29/16 05:44 <Dean Dunbar - Last Filed: 11/29/16 10:31> - Objective Vital Signs & Weight: Vital Signs (12 hours) Temp Pulse Resp BP BP Pulse Ox 11/29/16 10:03 123/83 11/29/16 07:55 97.8 F 76 24 H 123/83 92 L 11/29/16 07:15 87 20 95 11/29/16 04:55 98.1 F 85 19 120/78 94 L 11/29/16 03:15 85 16 94 L 11/28/16 22:54 81 16 89 L Weight Admit Weight 166.468 kg Weight 172.819 kg Most Recent Monitor Data Heart Rate from ECG 73 NIBP 138/69 NIBP BP-Mean 109 Respiration from ECG 24 SpO2 87 I&O: 11/28/16 11/29/16 11/30/16 06:59 06:59 06:59 Intake Total 20490 Output Total 2250 5252 Balance -200 -3432 Result Diagrams: 11/25/16 04:43 11/29/16 05:44 <Emilie Serna - Last Filed: 11/29/16 10:54> Phys Exam - Physical Examination Constitutional: NAD HEENT: moist MMs Neck: supple Mild wheezing Cardiovascular: RRR Gastrointestinal: soft, no distention Musculoskeletal: edema present Stasis dermatitis LE Neurological: non-focal Lymphatic: no nodes Psychiatric: normal affect Skin: no rash <Dean Dunbar M - Last Filed: 11/29/16 10:31> Dx/Plan (1) Acute respiratory failure with hypoxia and hypercapnia Code(s): J96.01 - ACUTE RESPIRATORY FAILURE WITH HYPOXIA; J96.02 - ACUTE RESPIRATORY FAILURE WITH HYPERCAPNIA Status: Acute Plan: Extubated today, satting low 90 on 15L O2 via max., will monitor and wean. Currently being worked up as possible heart failure. 11/21 - Extubated, sating well, O2 requirement decreased to 3.5 L on NC - Patient is more mentally awake then yesterday. - Plan to continue to wean O2, transfer to floor, advise on tobacco cessation 11/22 - No change on O2 from yesterday - Patient is speaking easily with no labored breathing - Pt to sit in chair TID, use incentive spirometry and work with PT today - Likely O2 on discharge 11/23 - Will continue titration. Will consider starting a blood gas. - Will continue lasix. - Will contact card for echo. 11/24 - Echo came back with elevated pulm artery pressure. - EF was normal, no read of heart failure, but still concerning for elevate pulmonary pressure - Currently, patient is doing better, back on NC. She will need to see pulm outpatient for sleep study. 11/27 - Needed minimal 4 hour bipap last night - Plan to floor, switch to cpap - Patient is more functional, out of bed. 11/28 - Switching to cpap - Patient is at same level of oxygenation while awake, 5 L NC requirement - She is getting out of bed and more active 11/29 - Off of bipap at night - Continue trying to titrate O2 down (2) Abscess of right leg Code(s): L02.415 - CUTANEOUS ABSCESS OF RIGHT LOWER LIMB Status: Acute Plan: Likely will de-escalate to levaquin based on sensitivity. Kidney function is good, will monitor as patient transitioned to levaquin. Continue wound care. 11/21 - Improving, but causes pain for patient. Will continue pain control. Will try adding NSAID - Surg feels wound is healing well, will continue to follow recs - ID recs cipro and keflex on discharge. 11/22 - Improving at this time, continue with wound vac and abx 11/23 - Improving, continue current plan. 11/24 - Improving, she will need cipro/keflex on discharge. - Day 7 of abx 11/27 - Continuing, abx, improving. 11/28 - Adding ceftriaxone onto levaquin after b iopsy result shows gangrene 11/29 - Continue with current abx (3) Hypertension Code(s): I10 - ESSENTIAL (PRIMARY) HYPERTENSION Status: Acute Plan: BP was in upper 150, has recently elevated with extubation. - Plan to titrate bp meds. 11/21 - BP was elevated overnight, was controlled with prn labetalol - Increasing lisinopril today to 20. - Continue lasix and coreg. 11/22 - Continue with current medication. - Evaluate lasix use as needed 11/23 - Not controlled, increasing patient's lisinopril to 40, will increase coreg next. 11/24 - Better controlled after lisinopril 20 bid. Will continue with current meds. 11/27 - BP under control. Continue lisinopril. WALTER may play a part, echo shows pulm artery hypertension. 11/28 - Continue current management. BP is at good control. 11/29 - Continue current management. (4) Necrosis of toe Code(s): I96 - GANGRENE, NOT ELSEWHERE CLASSIFIED Status: Acute Plan: POD #3 - Plant is to follow up with surg rec. Will adjust abx as mentioned above. Wound care consulted. 11/21 - POD #3, follow with Surg recs, but it is improving based on surg's impression. - COntinue pain and current abx 11/22 - Day 4, continue with surg rec, pain control. 11/23 - Continue with surg recs. Recommended wet to dry dressing as outpatient. 11/24 - COntinue current plan. No new changes to her assessment. 11/27 - Continue with wound care, wet to dry dressing at home 11/28 - Biopsy result returned. Adding ceftriaxone. Consult with ID to see if this will need to be continued on discharged 11/29 - ID wants to continue with cipro/keflex plan at discharge (5) Chronic hypercapnic respiratory failure Code(s): J96.12 - CHRONIC RESPIRATORY FAILURE WITH HYPERCAPNIA Status: Chronic Plan: - Likely a chronic problem with elevated bicarb in 30's. Patient also has obesity, possible WALTER, thought not diagnosised. - Plan is to continue with O2 supplementation. Patient did indicate she doesn't use O2 at baseline today. - May need O2 at home. 11/21 - Patient has 35 year smoking history with wheezing on exam. - Chronic issue with elevated bicarb. Treatment with breathing treatment and supplemental oxygen. 11/22 - Likely o2 on discharge - Rec to patient that she need pulm/sleep study as outpatient. 11/23 - Will start on nightly cpap, recommend pulm follow up outpatient. 11/24 - Keep on current plan. 11/27 - Bipap requirement down, transition cpap at night - Talked with patient why her diet is restricted, she is agreeable that low fat diet is appropriate. - Chronic issue, continue with current management. 11/29 - Continue with cpap, O2 during day (6) DM2 (diabetes mellitus, type 2) Status: Chronic Plan: A1c of 6.4. Her glucose during this stay has been acceptable - Will keep on SSI. Consider adding atorvastin 40, and metformin on discharge. 11/21 - Continue SSI. Add atorvastatin. 11/22 - Continue with current medication. 11/23 - Continue current plan. 11/24 - Continue with SSI. BG is controlled at this time. 11/27 - Continue with SSI. - Continue with plan. Glucose at good control. 11/29 - Good glucose control, continue with plan (7) HLD (hyperlipidemia) Code(s): E78.5 - HYPERLIPIDEMIA, UNSPECIFIED Status: Chronic Plan: - Atorvastatin, recommend follow up with pcp 11/23 - Continue with atorvastatin 11/24 - Continue plan. 11/27 - Continue with plan. - Continue with atrovastatin and HH diet 11/29 - Continue current med (8) Lymphedema of both lower extremities Code(s): I89.0 - LYMPHEDEMA, NOT ELSEWHERE CLASSIFIED Status: Chronic Plan: - Will get echo, patient had 20 of lasix yesterday - Plan today is discontinue IV fluid, lasix. Will still get echo. 11/21 - Patient received echo, awaiting read. 11/22 - Awaiting echo read 11/23 - Contacting card for echo read 11/24 - No congestive heart failure noted on echo, but she does have elevated pulm artery 11/27 - Now on diamox instead of lasix. 11/28 - On both diamox and lasix. There is some concern that she may be gaining weight. Her current weight doesn't show much change from admission weight but bed scale may be completely accurate 11/29 - 5 liter out. Will monitor potassium level while on diamox. Mild bump in K (9) Morbid obesity Code(s): E66.01 - MORBID (SEVERE) OBESITY DUE TO EXCESS CALORIES Status: Chronic Plan: - Spinning Machine Tender patient on discharge 11/21 - Advance to diet. - crate liner on discharge 11/22 - Unchanged plan 11/23 - Spinning Machine Tender on discharge 11/24 - Continue plan 11/27 - Continue with plan. 11/28 - Unchanged. COntinue HH diet and director of group counseling program 11/29 - Unchanged, continue plan (10) Tobacco abuse Code(s): Z72.0 - TOBACCO USE Status: Chronic Plan: - Spinning Machine Tender patient on discharge. 11/21 - Increased her nicotine patch to 21 due to extensive smoking - Spinning Machine Tender on discharge 11/22 - Unchanged plan 11/23 - Spinning Machine Tender on discharge 11/24 - Continue plan 11/27 - Continue plan. 11/28 - COntinue nicotine patch 11/29 - Unchanged, continue plan <Dean Dunbar - Last Filed: 11/29/16 10:31> Attending Addendum - Attending Addendum I personally evaluated the patient and discussed the management with Dr. Dunbar. I agree with the History, Examination, Assessment and Plan documented above with any addition or exceptions noted below. The patient was sitting up in a chair. She remains on antibiotics. Encouraged continued activity and working with therapy. Pt will be discharging home as she no funding for a facility. She has been able to walk to the door in her room with a walker and we would like to see her walk further if able. Will again try to wean o2. It appears they tried to turn oxygen off but she didn't tolerated. Will try going down to 4 liters today. She did request more sugar and dessert with meals but we reinforced that she is on a strict diet. <Emilie Serna - Last Filed: 11/29/16 10:54>
[2016-11-29 13:03] VITALS: BMI 65.4
[2016-11-29] MEDS: cefTRIAXone\\ROCEPHIN 1 GM in Sodium Chloride 0.9% 100 ML IVPB SCH (17:02)
--- NOTE | 2016-11-29 19:48 | PDOC.EVN ---
Event Note - Event Note Event Note: Called by nursing to evaluate patient. Arrived to bedside to evaluate at approximately 19:40 to evaluate. Patient is somnolent but arousable - GCS 11 [id number]. Lungs are clear. Vital signs HR 62 BP 117/82. O2 92% on BiPAP. Temp 98.1. Will get ABG and transfer to [facility] for closer observation by RT and nursing. Will continue to monitor patient closely.
[2016-11-29 19:55] LABS: Oxyhemoglobin 91.6 % (94.0-97.0); Sodium 138 mmol/L (135-148)
--- NOTE | 2016-11-29 19:55 | PRG ---
DATE OF SERVICE: 11/29/2016 SUBJECTIVE: The patient is quite somnolent, difficult to arouse and she will arouse after a lot of insistence and she is oriented to time, self, and place, took a quite a bit of time to give us the d ate though. She denies any headaches, no shortness of breath, no pain in the abdominal area, no di arrhea. She has been afebrile. O2 sats 92% to 93% nasal cannula. She has not been wearing her BiP AP mask as she should be; the foot with quite a bit of improvement in the erythema and swelling. Th e same thing applies for the leg. LABORATORY DATA: White cell count 9.3, hemoglobin 10, platelets 402. Sodium 138, creatinine 0.75, and the results of cultures as noted before. ASSESSMENT AND DISCUSSION: Type 2 diabetes with chronic smoking, hypoxic hypercapnic respiratory fa ilure, right lower extremity cellulitis of the right fourth toe and necrotizing infection, status po st amputation, compromised marginal amputation, polymicrobial jesusita currently on Rocephin and levofl oxacin to be continued for a protracted period of time. The patient needs to wear her BiPAP mask mo re consistently.
[2016-11-29 19:56] LABS: Mode NIV; Pressure Support 12 cmH2O; Vent NO
--- NOTE | 2016-11-29 20:29 | PDOC.EVN ---
Event Note - Event Note Event Note: Called to bedside again shortly after previous note was written. Nursing and RT reported patient was increasingly somnolent and harder to arouse. While I was en route, a code tamara was called overhead. I arrived at bedside, aggressively sternally rubbed her, and called her name loudly. She immediately woke up and yelled "What?" at me. O2 sat was 91% prior to that and vitals were otherwise normal. ABG drawn at 19:50 showed pH of 7.29, CO2 82.7, bicarb 39.1, and O2 68.4 which is actually improved from 11/23 when pH was 7.29, Co2 was 91.1 , O2 was 53.1, and bicarb was 42.6. After being aroused, patient stayed awake and was conversive, if somewhat disgruntled at me waking her. Patient does require more forceful sternal rub due to body habitus and is somewhat hard of hearing which likely contributes to difficulty in arousing her while sleeping. Will continue with IMCU for observation but patient appears to be well.
[2016-11-30] MEDS: Gabapentin 400 MG CAP PO SCH ×4 (00:01→21:39)
[2016-11-30] MEDS: Docusate 100 MG CAP PO SCH ×3 (01:25→21:39)
[2016-11-30] MEDS: Ibuprofen 800 MG TAB PO SCH ×3 (06:17→21:38)
[2016-11-30 06:42] LABS: Anion Gap 12 mmol/L (10-20); BUN (Urea Nitrogen) 21 mg/dL (7.0-18.7); Calc. Creatinine Clearance 242 mL/min (70-130); Calcium 9.2 mg/dL (7.8-10.44); Carbon Dioxide 35 mmol/L (22-29); Chloride 95 mmol/L (98-107); Estimated GFR-MDRD 82
--- NOTE | 2016-11-30 08:52 | PRG ---
DATE OF SERVICE: 11/30/2016 SUBJECTIVE: The patient is doing better today. She got a dose of Tylenol 3 yesterday and became sl eepy and had to be transferred down here for BiPAP therapy. PHYSICAL EXAMINATION: VITAL SIGNS: Temperature 98.7, pulse 68, respirations 18, O2 sat 95% on 5 liters, blood pressure 10 5/46. HEENT: Unremarkable. NECK: No JVD. CHEST: Clear. CARDIAC: S1, S2 regular. ABDOMEN: Soft. EXTREMITIES: Trace edema. NEUROLOGIC: She is awake, alert, and fully conversant. LABORATORY DATA: Sodium 138, potassium 3.9, chloride 95, CO2 35, BUN 21, creatinine 0.7, and glucos e 122. ASSESSMENT: 1. Obese hypoventilation syndrome/obstructive sleep apnea. 2. Status post amputation of gangrenous toe. RECOMMENDATIONS: 1. I would recommend not ever giving her any type of narcotic again for pain. 2. She can probably be transferred back to the floor. 3. Placement considerations.
[2016-11-30] MEDS: Nicotine 21 MG PATCH TD SCH (09:59)
[2016-11-30] MEDS: Sterile Water 10 ML VIAL FS SCH ×2 (09:59→22:14)
[2016-11-30] MEDS: Carvedilol 25 MG TAB PO SCH ×2 (09:59→17:13)
[2016-11-30] MEDS: Furosemide 20 MG/2 ML VIAL IVP SCH ×2 (09:59→21:46)
[2016-11-30] MEDS: Lisinopril 20 MG TAB PO SCH ×2 (10:00→21:39)
[2016-11-30] MEDS: acetaZOLAMIDE Sodium 500 mg Vial IVP SCH ×2 (10:01→21:48)
[2016-11-30] MEDS: Fluticasone Propionate Nasal Spray 16 gm Bottle NASAL SCH (10:08)
[2016-11-30] MEDS: Enoxaparin Sodium 40 MG/0.4 ML SYRINGE SC SCH (10:11)
--- NOTE | 2016-11-30 10:25 | PDOC.FM ---
- Subjective Subjective: Patient stated she is doing well but did have a code green yesterday due to somnolence per nursing. She woke up easily after sternal rub and blood gas indicate she was actually improve compared to previously. She was moved to [facility] as a precautionary measure. - Objective MAR Reviewed: Yes Vital Signs & Weight: Vital Signs (12 hours) Temp Pulse Resp BP BP Pulse Ox 11/30/16 10:00 102/53 L 11/30/16 07:33 95 11/30/16 07:31 68 18 95 11/30/16 07:10 98.7 F 76 20 102/53 L 97 11/30/16 04:00 98.7 F 81 20 105/46 L 91 L 11/30/16 03:44 90 L 11/30/16 03:42 90 L 11/30/16 02:00 86 20 92 L 11/30/16 00:00 99.1 F 67 22 H 109/60 92 L 11/29/16 23:00 91 L Weight Admit Weight 166.468 kg Weight 169.235 kg Most Recent Monitor Data Heart Rate from ECG 73 NIBP 138/69 NIBP BP-Mean 109 Respiration from ECG 24 SpO2 87 I&O: 11/29/16 11/30/16 12/01/16 06:59 06:59 06:59 Intake Total 1820 2020 Output Total 5252 975 Balance -3432 1045 Result Diagrams: 11/25/16 04:43 11/30/16 05:12 <BettinaDean M - Last Filed: 11/30/16 10:24> - Objective Vital Signs & Weight: Vital Signs (12 hours) Temp Pulse Resp BP BP Pulse Ox 11/30/16 10:00 102/53 L 11/30/16 07:33 95 11/30/16 07:31 68 18 95 11/30/16 07:10 98.7 F 76 20 102/53 L 97 11/30/16 04:00 98.7 F 81 20 105/46 L 91 L 11/30/16 03:44 90 L 11/30/16 03:42 90 L 11/30/16 02:00 86 20 92 L 11/30/16 00:00 99.1 F 67 22 H 109/60 92 L 11/29/16 23:00 91 L Weight Admit Weight 166.468 kg Weight 169.235 kg Most Recent Monitor Data Heart Rate from ECG 73 NIBP 138/69 NIBP BP-Mean 109 Respiration from ECG 24 SpO2 87 I&O: 11/29/16 11/30/16 12/01/16 06:59 06:59 06:59 Intake Total 1820 2019 Output Total 5252 975 Balance -3432 1045 Result Diagrams: 11/25/16 04:43 11/30/16 05:12 <Emilie Serna - Last Filed: 11/30/16 10:34> Phys Exam - Physical Examination Constitutional: NAD HEENT: moist MMs Neck: no nodes, supple Mild wheezing Cardiovascular: RRR Gastrointestinal: soft, positive bowel sounds Musculoskeletal: edema present stasis dermatitis Neurological: non-focal Lymphatic: no nodes Psychiatric: normal affect Skin: no rash <Dean Dunbar - Last Filed: 11/30/16 10:24> Dx/Plan (1) Acute respiratory failure with hypoxia and hypercapnia Code(s): J96.01 - ACUTE RESPIRATORY FAILURE WITH HYPOXIA; J96.02 - ACUTE RESPIRATORY FAILURE WITH HYPERCAPNIA Status: Acute Plan: Extubated today, satting low 90 on 15L O2 via max., will monitor and wean. Currently being worked up as possible heart failure. 11/21 - Extubated, sating well, O2 requirement decreased to 3.5 L on NC - Patient is more mentally awake then yesterday. - Plan to continue to wean O2, transfer to floor, advise on tobacco cessation 11/22 - No change on O2 from yesterday - Patient is speaking easily with no labored breathing - Pt to sit in chair TID, use incentive spirometry and work with PT today - Likely O2 on discharge 11/23 - Will continue titration. Will consider starting a blood gas. - Will continue lasix. - Will contact card for echo. 11/24 - Echo came back with elevated pulm artery pressure. - EF was normal, no read of heart failure, but still concerning for elevate pulmonary pressure - Currently, patient is doing better, back on NC. She will need to see pulm outpatient for sleep study. 11/27 - Needed minimal 4 hour bipap last night - Plan to floor, switch to cpap - Patient is more functional, out of bed. 11/28 - Switching to cpap - Patient is at same level of oxygenation while awake, 5 L NC requirement - She is getting out of bed and more active 11/29 - Off of bipap at night - Continue trying to titrate O2 down 11/30 - Had somnolence overnight. However, blood gas was improved compared to before. Possible tylenol 3 related, but her last dose was about 10 hour prior to the code. Will still stop it. (2) Abscess of right leg Code(s): L02.415 - CUTANEOUS ABSCESS OF RIGHT LOWER LIMB Status: Acute Plan: Likely will de-escalate to levaquin based on sensitivity. Kidney function is good, will monitor as patient transitioned to levaquin. Continue wound care. 11/21 - Improving, but causes pain for patient. Will continue pain control. Will try adding NSAID - Surg feels wound is healing well, will continue to follow recs - ID recs cipro and keflex on discharge. 11/22 - Improving at this time, continue with wound vac and abx 11/23 - Improving, continue current plan. 11/24 - Improving, she will need cipro/keflex on discharge. - Day 7 of abx 11/27 - Continuing, abx, improving. 11/28 - Adding ceftriaxone onto levaquin after b iopsy result shows gangrene 11/29 - Continue with current abx 11/30 - Wound vac out, continue wet-dry changes (3) Hypertension Code(s): I10 - ESSENTIAL (PRIMARY) HYPERTENSION Status: Acute Qualifiers: Hypertension type: unspecified Qualified Code(s): I10 - Essential (primary ) hypertension Plan: BP was in upper 150, has recently elevated with extubation. - Plan to titrate bp meds. 11/21 - BP was elevated overnight, was controlled with prn labetalol - Increasing lisinopril today to 20. - Continue lasix and coreg. 11/22 - Continue with current medication. - Evaluate lasix use as needed 11/23 - Not controlled, increasing patient's lisinopril to 40, will increase coreg next. 11/24 - Better controlled after lisinopril 20 bid. Will continue with current meds. 11/27 - BP under control. Continue lisinopril. WALTER may play a part, echo shows pulm artery hypertension. 11/28 - Continue current management. BP is at good control. 11/29 - Continue current management. 11/30 - Continue current management (4) Necrosis of toe Code(s): I96 - GANGRENE, NOT ELSEWHERE CLASSIFIED Status: Acute Plan: POD #3 - Plant is to follow up with surg rec. Will adjust abx as mentioned above. Wound care consulted. 11/21 - POD #3, follow with Surg recs, but it is improving based on surg's impression. - COntinue pain and current abx 11/22 - Day 4, continue with surg rec, pain control. 11/23 - Continue with surg recs. Recommended wet to dry dressing as outpatient. 11/24 - COntinue current plan. No new changes to her assessment. 11/27 - Continue with wound care, wet to dry dressing at home 11/28 - Biopsy result returned. Adding ceftriaxone. Consult with ID to see if this will need to be continued on discharged 11/29 - ID wants to continue with cipro/keflex plan at discharge 11/30 -Continue plan (5) Chronic hypercapnic respiratory failure Code(s): J96.12 - CHRONIC RESPIRATORY FAILURE WITH HYPERCAPNIA Status: Chronic Plan: - Likely a chronic problem with elevated bicarb in 30's. Patient also has obesity, possible WALTER, thought not diagnosised. - Plan is to continue with O2 supplementation. Patient did indicate she doesn't use O2 at baseline today. - May need O2 at home. 11/21 - Patient has 35 year smoking history with wheezing on exam. - Chronic issue with elevated bicarb. Treatment with breathing treatment and supplemental oxygen. 11/22 - Likely o2 on discharge - Rec to patient that she need pulm/sleep study as outpatient. 11/23 - Will start on nightly cpap, recommend pulm follow up outpatient. 11/24 - Keep on current plan. 11/27 - Bipap requirement down, transition cpap at night - Talked with patient why her diet is restricted, she is agreeable that low fat diet is appropriate. - Chronic issue, continue with current management. 11/29 - Continue with cpap, O2 during day (6) DM2 (diabetes mellitus, type 2) Status: Chronic Qualifiers: Diabetes mellitus complication status: with unspecified complications Diabetes mellitus residential insulin use: without residential use Qualified Code( s): E11.8 - Type 2 diabetes mellitus with unspecified complications Plan: A1c of 6.4. Her glucose during this stay has been acceptable - Will keep on SSI. Consider adding atorvastin 40, and metformin on discharge. 11/21 - Continue SSI. Add atorvastatin. 11/22 - Continue with current medication. 11/23 - Continue current plan. 11/24 - Continue with SSI. BG is controlled at this time. 11/27 - Continue with SSI. - Continue with plan. Glucose at good control. 11/29 - Good glucose control, continue with plan 11/30 - Continue management (7) HLD (hyperlipidemia) Code(s): E78.5 - HYPERLIPIDEMIA, UNSPECIFIED Status: Chronic Qualifiers: Hyperlipidemia type: unspecified Qualified Code(s): E78.5 - Hyperlipidemia , unspecified Plan: - Atorvastatin, recommend follow up with pcp 11/23 - Continue with atorvastatin 11/24 - Continue plan. 11/27 - Continue with plan. - Continue with atrovastatin and HH diet 11/29 - Continue current med 11/30 - No changes in plan (8) Lymphedema of both lower extremities Code(s): I89.0 - LYMPHEDEMA, NOT ELSEWHERE CLASSIFIED Status: Chronic Plan: - Will get echo, patient had 20 of lasix yesterday - Plan today is discontinue IV fluid, lasix. Will still get echo. 11/21 - Patient received echo, awaiting read. 11/22 - Awaiting echo read 11/23 - Contacting card for echo read 11/24 - No congestive heart failure noted on echo, but she does have elevated pulm artery 11/27 - Now on diamox instead of lasix. 11/28 - On both diamox and lasix. There is some concern that she may be gaining weight. Her current weight doesn't show much change from admission weight but bed scale may be completely accurate 11/29 - 5 liter out. Will monitor potassium level while on diamox. Mild bump in K 11/30 - More difficult to measure i/o now that patient is not with benitez, and has incontinence at time - However, patient still has edema, will follow her weight. (9) Morbid obesity Code(s): E66.01 - MORBID (SEVERE) OBESITY DUE TO EXCESS CALORIES Status: Chronic Plan: - Family Counselor patient on discharge 11/21 - Advance to HH diet. - blender operator on discharge 11/22 - Unchanged plan 11/23 - Family Counselor on discharge 11/24 - Continue plan 11/27 - Continue with plan. 11/28 - Unchanged. COntinue HH diet and school counsellor 11/29 - Unchanged, continue plan 11/30 - Continue current management (10) Tobacco abuse Code(s): Z72.0 - TOBACCO USE Status: Chronic Plan: - Family Counselor patient on discharge. 11/21 - Increased her nicotine patch to 21 due to extensive smoking - Family Counselor on discharge 11/22 - Unchanged plan 11/23 - Family Counselor on discharge 11/24 - Continue plan 11/27 - Continue plan. 11/28 - COntinue nicotine patch 11/29 - Unchanged, continue plan 11/30 - Continue current management <Dean Dunbar - Last Filed: 11/30/16 10:24> Attending Addendum - Attending Addendum I personally evaluated the patient and discussed the management with Dr. Dunbar. I agree with the History, Examination, Assessment and Plan documented above with any addition or exceptions noted below. The patient is awake and alert this morning. All narcotic have been stopped. Her last dose of Tylenol 3 prior to the code green last night was 10 hours prior to that. The patient has no insurance, which she confirmed this morning, and placement is not going to be an option for her. She plans to go home to live with her son. Will continue O2. Continue antibiotics. Transfer back to the floor. Patient is voiding without difficulty this morning. She needs continued PT. Patient is likely not going to be able to get a cpap/bipap at home as she has no funding and cannot afford the sleep study. <Emilie Serna - Last Filed: 11/30/16 10:34>
[2016-11-30] MEDS: Acetaminophen 500 MG TAB PO SCH ×2 (15:17→22:14)
[2016-11-30] MEDS: cefTRIAXone\\ROCEPHIN 1 GM in Sodium Chloride 0.9% 100 ML IVPB SCH (17:12)
[2016-12-01] MEDS: Ibuprofen 800 MG TAB PO SCH ×3 (05:25→21:40)
[2016-12-01] MEDS: Acetaminophen 500 MG TAB PO SCH ×3 (05:26→21:40)
[2016-12-01 05:32] LABS: BUN (Urea Nitrogen) 19 mg/dL (7.0-18.7); Calc. Creatinine Clearance 249 mL/min (70-130); Calcium 8.1 mg/dL (7.8-10.44); Carbon Dioxide 27 mmol/L (22-29); Chloride 97 mmol/L (98-107); Estimated GFR-MDRD 85; Magnesium 1.8 mg/dL (1.6-2.6)
[2016-12-01 08:26] LABS: Anion Gap 15 mmol/L (10-20)
[2016-12-01] MEDS: Lisinopril 20 MG TAB PO SCH ×2 (09:26→21:40)
[2016-12-01] MEDS: Docusate 100 MG CAP PO SCH ×2 (09:26→21:48)
[2016-12-01] MEDS: Furosemide 20 MG/2 ML VIAL IVP SCH ×2 (09:26→21:41)
[2016-12-01] MEDS: Carvedilol 25 MG TAB PO SCH ×2 (09:26→18:11)
[2016-12-01] MEDS: Gabapentin 400 MG CAP PO SCH ×3 (09:26→21:40)
[2016-12-01] MEDS: Nicotine 21 MG PATCH TD SCH (09:27)
[2016-12-01] MEDS: Enoxaparin Sodium 40 MG/0.4 ML SYRINGE SC SCH (09:27)
--- NOTE | 2016-12-01 09:31 | PDOC.FM ---
- Subjective Subjective: Patient stated she walked independently to restroom. No issue with urination. Only had tylenol and ibuprofen last night for pain, which she say is better. No chair at the size to accommodate patient in room. No walker apparent in room. - Objective MAR Reviewed: Yes Vital Signs & Weight: Vital Signs (12 hours) Temp Pulse Resp BP Pulse Ox 12/01/16 09:00 94 L 12/01/16 08:58 82 20 94 L 12/01/16 08:00 97.8 F 80 24 H 147/81 H 96 12/01/16 05:33 97.7 F 74 18 124/76 98 12/01/16 00:25 69 18 94 L 12/01/16 00:01 98.0 F 66 20 123/68 97 11/30/16 22:29 83 18 94 L 11/30/16 21:34 97.9 F 73 18 124/78 95 Weight Admit Weight 166.468 kg Weight 165.788 kg Most Recent Monitor Data Heart Rate from ECG 73 NIBP 138/69 NIBP BP-Mean 109 Respiration from ECG 24 SpO2 87 I&O: 11/30/16 12/01/16 12/02/16 06:59 06:59 06:59 Intake Total 2019 1240 Output Total 975 Balance 1045 1240 Result Diagrams: 11/25/16 04:43 12/01/16 04:27 <Dean Dunbar M - Last Filed: 12/01/16 10:45> - Objective Vital Signs & Weight: Vital Signs (12 hours) Temp Pulse Resp BP Pulse Ox 12/01/16 09:00 94 L 12/01/16 08:58 82 20 94 L 12/01/16 08:00 97.8 F 80 24 H 147/81 H 96 12/01/16 05:33 97.7 F 74 18 124/76 98 12/01/16 00:25 69 18 94 L 12/01/16 00:01 98.0 F 66 20 123/68 97 Weight Admit Weight 166.468 kg Weight 165.788 kg Most Recent Monitor Data Heart Rate from ECG 73 NIBP 138/69 NIBP BP-Mean 109 Respiration from ECG 24 SpO2 87 I&O: 11/30/16 12/01/16 12/02/16 06:59 06:59 06:59 Intake Total 2019 1240 Output Total 975 Balance 1045 1240 Result Diagrams: 11/25/16 04:43 12/01/16 04:27 <Emilie Serna - Last Filed: 12/01/16 11:01> Phys Exam - Physical Examination Constitutional: NAD HEENT: moist MMs Neck: supple Rhonchi bilaterally, possible upper airway. Improved after coughing Cardiovascular: RRR Difficult auscultation with rhonchi Gastrointestinal: soft Musculoskeletal: edema present Edema bilat with stasis dermatitis Neurological: moves all 4 limbs Lymphatic: no nodes Deviation from normal: Stasis dermatitis <Dean Dunbar M - Last Filed: 12/01/16 10:45> Dx/Plan (1) Acute respiratory failure with hypoxia and hypercapnia Code(s): J96.01 - ACUTE RESPIRATORY FAILURE WITH HYPOXIA; J96.02 - ACUTE RESPIRATORY FAILURE WITH HYPERCAPNIA Status: Acute Plan: Extubated today, satting low 90 on 15L O2 via max., will monitor and wean. Currently being worked up as possible heart failure. 11/21 - Extubated, sating well, O2 requirement decreased to 3.5 L on NC - Patient is more mentally awake then yesterday. - Plan to continue to wean O2, transfer to floor, advise on tobacco cessation 11/22 - No change on O2 from yesterday - Patient is speaking easily with no labored breathing - Pt to sit in chair TID, use incentive spirometry and work with PT today - Likely O2 on discharge 11/23 - Will continue titration. Will consider starting a blood gas. - Will continue lasix. - Will contact card for echo. 11/24 - Echo came back with elevated pulm artery pressure. - EF was normal, no read of heart failure, but still concerning for elevate pulmonary pressure - Currently, patient is doing better, back on NC. She will need to see pulm outpatient for sleep study. 11/27 - Needed minimal 4 hour bipap last night - Plan to floor, switch to cpap - Patient is more functional, out of bed. 11/28 - Switching to cpap - Patient is at same level of oxygenation while awake, 5 L NC requirement - She is getting out of bed and more active 11/29 - Off of bipap at night - Continue trying to titrate O2 down 11/30 - Had somnolence overnight. However, blood gas was improved compared to before. Possible tylenol 3 related, but her last dose was about 10 hour prior to the code. Will still stop it. 12/01 - No acute event last night (2) Abscess of right leg Code(s): L02.415 - CUTANEOUS ABSCESS OF RIGHT LOWER LIMB Status: Acute Plan: Likely will de-escalate to levaquin based on sensitivity. Kidney function is good, will monitor as patient transitioned to levaquin. Continue wound care. 11/21 - Improving, but causes pain for patient. Will continue pain control. Will try adding NSAID - Surg feels wound is healing well, will continue to follow recs - ID recs cipro and keflex on discharge. 11/22 - Improving at this time, continue with wound vac and abx 11/23 - Improving, continue current plan. 11/24 - Improving, she will need cipro/keflex on discharge. - Day 7 of abx 11/27 - Continuing, abx, improving. 11/28 - Adding ceftriaxone onto levaquin after b iopsy result shows gangrene 11/29 - Continue with current abx 11/30 - Wound vac out, continue wet-dry changes 12/01 - Continue current plan (3) Hypertension Code(s): I10 - ESSENTIAL (PRIMARY) HYPERTENSION Status: Acute Plan: BP was in upper 150, has recently elevated with extubation. - Plan to titrate bp meds. 11/21 - BP was elevated overnight, was controlled with prn labetalol - Increasing lisinopril today to 20. - Continue lasix and coreg. 11/22 - Continue with current medication. - Evaluate lasix use as needed 11/23 - Not controlled, increasing patient's lisinopril to 40, will increase coreg next. 11/24 - Better controlled after lisinopril 20 bid. Will continue with current meds. 11/27 - BP under control. Continue lisinopril. WALTER may play a part, echo shows pulm artery hypertension. 11/28 - Continue current management. BP is at good control. 11/29 - Continue current management. 11/30 - Continue current management 12/01 - Continue current plan (4) Necrosis of toe Code(s): I96 - GANGRENE, NOT ELSEWHERE CLASSIFIED Status: Acute Plan: POD #3 - Plant is to follow up with surg rec. Will adjust abx as mentioned above. Wound care consulted. 11/21 - POD #3, follow with Surg recs, but it is improving based on surg's impression. - COntinue pain and current abx 11/22 - Day 4, continue with surg rec, pain control. 11/23 - Continue with surg recs. Recommended wet to dry dressing as outpatient. 11/24 - COntinue current plan. No new changes to her assessment. 11/27 - Continue with wound care, wet to dry dressing at home 11/28 - Biopsy result returned. Adding ceftriaxone. Consult with ID to see if this will need to be continued on discharged 11/29 - ID wants to continue with cipro/keflex plan at discharge 11/30 -Continue plan 12/01 - Continue current plan. (5) Chronic hypercapnic respiratory failure Code(s): J96.12 - CHRONIC RESPIRATORY FAILURE WITH HYPERCAPNIA Status: Chronic Plan: - Likely a chronic problem with elevated bicarb in 30's. Patient also has obesity, possible WALTER, thought not diagnosised. - Plan is to continue with O2 supplementation. Patient did indicate she doesn't use O2 at baseline today. - May need O2 at home. 11/21 - Patient has 35 year smoking history with wheezing on exam. - Chronic issue with elevated bicarb. Treatment with breathing treatment and supplemental oxygen. 11/22 - Likely o2 on discharge - Rec to patient that she need pulm/sleep study as outpatient. 11/23 - Will start on nightly cpap, recommend pulm follow up outpatient. 11/24 - Keep on current plan. 11/27 - Bipap requirement down, transition cpap at night - Talked with patient why her diet is restricted, she is agreeable that low fat diet is appropriate. - Chronic issue, continue with current management. 11/29 - Continue with cpap, O2 during day 12/01 - Continue bipap. Wean o2 to 3L today. Will check during rounds to see how she; s doing. Request nursing get patient chair to accommodate her and to walk with patient during day. (6) DM2 (diabetes mellitus, type 2) Status: Chronic Plan: A1c of 6.4. Her glucose during this stay has been acceptable - Will keep on SSI. Consider adding atorvastin 40, and metformin on discharge. 11/21 - Continue SSI. Add atorvastatin. 11/22 - Continue with current medication. 11/23 - Continue current plan. 11/24 - Continue with SSI. BG is controlled at this time. 11/27 - Continue with SSI. - Continue with plan. Glucose at good control. 11/29 - Good glucose control, continue with plan 11/30 - Continue management (7) HLD (hyperlipidemia) Code(s): E78.5 - HYPERLIPIDEMIA, UNSPECIFIED Status: Chronic Plan: - Atorvastatin, recommend follow up with pcp 11/23 - Continue with atorvastatin 11/24 - Continue plan. 11/27 - Continue with plan. - Continue with atrovastatin and HH diet 11/29 - Continue current med 11/30 - No changes in plan (8) Lymphedema of both lower extremities Code(s): I89.0 - LYMPHEDEMA, NOT ELSEWHERE CLASSIFIED Status: Chronic Plan: - Will get echo, patient had 20 of lasix yesterday - Plan today is discontinue IV fluid, lasix. Will still get echo. 11/21 - Patient received echo, awaiting read. 11/22 - Awaiting echo read 11/23 - Contacting card for echo read 11/24 - No congestive heart failure noted on echo, but she does have elevated pulm artery 11/27 - Now on diamox instead of lasix. 11/28 - On both diamox and lasix. There is some concern that she may be gaining weight. Her current weight doesn't show much change from admission weight but bed scale may be completely accurate 11/29 - 5 liter out. Will monitor potassium level while on diamox. Mild bump in K 11/30 - More difficult to measure i/o now that patient is not with benitez, and has incontinence at time - However, patient still has edema, will follow her weight. (9) Morbid obesity Code(s): E66.01 - MORBID (SEVERE) OBESITY DUE TO EXCESS CALORIES Status: Chronic Plan: - Cork Mixer patient on discharge 11/21 - Advance to HH diet. - claim technician on discharge 11/22 - Unchanged plan 11/23 - Cork Mixer on discharge 11/24 - Continue plan 11/27 - Continue with plan. 11/28 - Unchanged. COntinue HH diet and adolescent counselor 11/29 - Unchanged, continue plan 11/30 - Continue current management 12/01 - Continue to adolescent counselor patient (10) Tobacco abuse Code(s): Z72.0 - TOBACCO USE Status: Chronic Plan: - Cork Mixer patient on discharge. 11/21 - Increased her nicotine patch to 21 due to extensive smoking - Cork Mixer on discharge 11/22 - Unchanged plan 11/23 - Cork Mixer on discharge 11/24 - Continue plan 11/27 - Continue plan. 11/28 - COntinue nicotine patch 11/29 - Unchanged, continue plan 11/30 - Continue current management 12/01 - Continue advising patient <Dean Dunbar - Last Filed: 12/01/16 10:45> Attending Addendum - Attending Addendum I personally evaluated the patient and discussed the management with Dr. Dunbar. I agree with the History, Examination, Assessment and Plan documented above with any addition or exceptions noted below. The patient is doing well this morning. She has ambulated to the bathroom with assistance. Will continue to try to wean O2. No events over night. Continue antibiotics. Pt is working with PT to improve strength. She is uninsured and is not a candidate for placement anywhere. <Emilie Serna - Last Filed: 12/01/16 11:01>
--- NOTE | 2016-12-01 10:25 | PRG ---
DATE OF SERVICE: 12/01/2016 Ms. Oliveira feels better. She managed to stay on the medical floor last night without issues. PHYSICAL EXAMINATION: VITAL SIGNS: Temperature 97.8, pulse 82, respirations 20, O2 saturation 94% on 4 liters, blood pres sure 147/81. HEENT: Unremarkable. NECK: Without adenopathy or JVD. LUNGS: Clear. CARDIAC: S1 and S2 regular. ABDOMEN: Soft. EXTREMITIES: No edema. LABORATORY DATA: Sodium 135, potassium 4.2, chloride 97, CO2 of 27, BUN 19, creatinine 0.7, glucose 88. ASSESSMENT: 1. Likely underlying sleep apnea. 2. Obesity hypoventilation syndrome. 3. Sensitivity to narcotics. 4. Gangrenous right toe. PLAN: 1. The patient is to absolutely refrain from taking any type of narcotic medication as it makes her excessively somnolent. 2. Continue antibiotics per Dr. Lee. 3. Increase activity. 4. Hopefully can be transferred back to home soon.
[2016-12-01] MEDS: acetaZOLAMIDE Sodium 500 mg Vial IVP SCH ×2 (13:04→21:41)
[2016-12-01] MEDS: Sterile Water 10 ML VIAL FS SCH ×2 (13:07→21:41)
[2016-12-01] MEDS: Fluticasone Propionate Nasal Spray 16 gm Bottle NASAL SCH (17:23)
[2016-12-01] MEDS: cefTRIAXone\\ROCEPHIN 1 GM in Sodium Chloride 0.9% 100 ML IVPB SCH (18:08)
[2016-12-02] MEDS: Ibuprofen 800 MG TAB PO SCH ×3 (05:29→21:59)
[2016-12-02] MEDS: Acetaminophen 500 MG TAB PO SCH ×3 (05:29→21:55)
[2016-12-02 06:36] LABS: Anion Gap 14 mmol/L (10-20); BUN (Urea Nitrogen) 20 mg/dL (7.0-18.7); Calc. Creatinine Clearance 229 mL/min (70-130); Calcium 9.4 mg/dL (7.8-10.44); Carbon Dioxide 36 mmol/L (22-29); Chloride 97 mmol/L (98-107); Estimated GFR-MDRD 82; Magnesium 1.9 mg/dL (1.6-2.6)
--- NOTE | 2016-12-02 07:27 | PDOC.FM ---
- Subjective Subjective: - No acute evenet overnight. Patient stated she has had no issues. - Objective MAR Reviewed: Yes Vital Signs & Weight: Vital Signs (12 hours) Temp Pulse Resp BP Pulse Ox 12/02/16 02:12 20 12/02/16 00:44 89 19 12/01/16 22:11 20 12/01/16 20:35 98.6 F 77 20 12/01/16 20:00 98.6 F 77 16 128/71 91 L Weight Admit Weight 166.468 kg Weight 160.027 kg Most Recent Monitor Data Heart Rate from ECG 73 NIBP 138/69 NIBP BP-Mean 109 Respiration from ECG 24 SpO2 87 I&O: 12/01/16 12/02/16 12/03/16 06:59 06:59 06:59 Intake Total 1240 410 Balance 1240 410 Result Diagrams: 11/25/16 04:43 12/02/16 04:56 Phys Exam - Physical Examination Constitutional: NAD HEENT: moist MMs Neck: no nodes, supple Rhonchi Cardiovascular: no significant murmur Gastrointestinal: soft, no distention Musculoskeletal: no edema Neurological: non-focal Lymphatic: no nodes Psychiatric: normal affect Skin: no rash Dx/Plan (1) Acute respiratory failure with hypoxia and hypercapnia Code(s): J96.01 - ACUTE RESPIRATORY FAILURE WITH HYPOXIA; J96.02 - ACUTE RESPIRATORY FAILURE WITH HYPERCAPNIA Status: Acute Plan: Extubated today, satting low 90 on 15L O2 via max., will monitor and wean. Currently being worked up as possible heart failure. 11/21 - Extubated, sating well, O2 requirement decreased to 3.5 L on NC - Patient is more mentally awake then yesterday. - Plan to continue to wean O2, transfer to floor, advise on tobacco cessation 11/22 - No change on O2 from yesterday - Patient is speaking easily with no labored breathing - Pt to sit in chair TID, use incentive spirometry and work with PT today - Likely O2 on discharge 11/23 - Will continue titration. Will consider starting a blood gas. - Will continue lasix. - Will contact card for echo. 11/24 - Echo came back with elevated pulm artery pressure. - EF was normal, no read of heart failure, but still concerning for elevate pulmonary pressure - Currently, patient is doing better, back on NC. She will need to see pulm outpatient for sleep study. 11/27 - Needed minimal 4 hour bipap last night - Plan to floor, switch to cpap - Patient is more functional, out of bed. 11/28 - Switching to cpap - Patient is at same level of oxygenation while awake, 5 L NC requirement - She is getting out of bed and more active 11/29 - Off of bipap at night - Continue trying to titrate O2 down 11/30 - Had somnolence overnight. However, blood gas was improved compared to before. Possible tylenol 3 related, but her last dose was about 10 hour prior to the code. Will still stop it. 12/01 - No acute event last night 12/02 - No acute event with good oxygenation (2) Abscess of right leg Code(s): L02.415 - CUTANEOUS ABSCESS OF RIGHT LOWER LIMB Status: Acute Plan: Likely will de-escalate to levaquin based on sensitivity. Kidney function is good, will monitor as patient transitioned to levaquin. Continue wound care. 11/21 - Improving, but causes pain for patient. Will continue pain control. Will try adding NSAID - Surg feels wound is healing well, will continue to follow recs - ID recs cipro and keflex on discharge. 11/22 - Improving at this time, continue with wound vac and abx 11/23 - Improving, continue current plan. 11/24 - Improving, she will need cipro/keflex on discharge. - Day 7 of abx 11/27 - Continuing, abx, improving. 11/28 - Adding ceftriaxone onto levaquin after b iopsy result shows gangrene 11/29 - Continue with current abx 11/30 - Wound vac out, continue wet-dry changes 12/01 - Continue current plan 12/02 - Continue abx and wound care (3) Hypertension Code(s): I10 - ESSENTIAL (PRIMARY) HYPERTENSION Status: Acute Qualifiers: Qualified Code(s): I10 - Essential (primary) hypertension Plan: BP was in upper 150, has recently elevated with extubation. - Plan to titrate bp meds. 11/21 - BP was elevated overnight, was controlled with prn labetalol - Increasing lisinopril today to 20. - Continue lasix and coreg. 11/22 - Continue with current medication. - Evaluate lasix use as needed 11/23 - Not controlled, increasing patient's lisinopril to 40, will increase coreg next. 11/24 - Better controlled after lisinopril 20 bid. Will continue with current meds. 11/27 - BP under control. Continue lisinopril. WALTER may play a part, echo shows pulm artery hypertension. 11/28 - Continue current management. BP is at good control. 11/29 - Continue current management. 11/30 - Continue current management 12/01 - Continue current plan 12/02 BP Controlled, continue current med (4) Necrosis of toe Code(s): I96 - GANGRENE, NOT ELSEWHERE CLASSIFIED Status: Acute Plan: POD #3 - Plant is to follow up with surg rec. Will adjust abx as mentioned above. Wound care consulted. 11/21 - POD #3, follow with Surg recs, but it is improving based on surg's impression. - COntinue pain and current abx 11/22 - Day 4, continue with surg rec, pain control. 11/23 - Continue with surg recs. Recommended wet to dry dressing as outpatient. 11/24 - COntinue current plan. No new changes to her assessment. 11/27 - Continue with wound care, wet to dry dressing at home 11/28 - Biopsy result returned. Adding ceftriaxone. Consult with ID to see if this will need to be continued on discharged 11/29 - ID wants to continue with cipro/keflex plan at discharge 11/30 -Continue plan 12/01 - Continue current plan. 12/02 - Continue wound care, abx (5) Chronic hypercapnic respiratory failure Code(s): J96.12 - CHRONIC RESPIRATORY FAILURE WITH HYPERCAPNIA Status: Chronic Plan: - Likely a chronic problem with elevated bicarb in 30's. Patient also has obesity, possible WALTER, thought not diagnosised. - Plan is to continue with O2 supplementation. Patient did indicate she doesn't use O2 at baseline today. - May need O2 at home. 11/21 - Patient has 35 year smoking history with wheezing on exam. - Chronic issue with elevated bicarb. Treatment with breathing treatment and supplemental oxygen. 11/22 - Likely o2 on discharge - Rec to patient that she need pulm/sleep study as outpatient. 11/23 - Will start on nightly cpap, recommend pulm follow up outpatient. 11/24 - Keep on current plan. 11/27 - Bipap requirement down, transition cpap at night - Talked with patient why her diet is restricted, she is agreeable that low fat diet is appropriate. - Chronic issue, continue with current management. 11/29 - Continue with cpap, O2 during day 12/01 - Continue bipap. Wean o2 to 3L today. Will check during rounds to see how she; s doing. Request nursing get patient chair to accommodate her and to walk with patient during day. 12/02 - Wore bipap last night. Again reiterated with patient to sit up during day and walk. Was noted that she didn't participated with PT. She said PT didn't come but PT note state she refused. (6) DM2 (diabetes mellitus, type 2) Status: Chronic Qualifiers: Qualified Code(s): E11.8 - Type 2 diabetes mellitus with unspecified complications Plan: A1c of 6.4. Her glucose during this stay has been acceptable - Will keep on SSI. Consider adding atorvastin 40, and metformin on discharge. 11/21 - Continue SSI. Add atorvastatin. 11/22 - Continue with current medication. 11/23 - Continue current plan. 11/24 - Continue with SSI. BG is controlled at this time. 11/27 - Continue with SSI. - Continue with plan. Glucose at good control. 11/29 - Good glucose control, continue with plan 11/30 - Continue management 12/02 - Continue with current SSI (7) HLD (hyperlipidemia) Code(s): E78.5 - HYPERLIPIDEMIA, UNSPECIFIED Status: Chronic Qualifiers: Qualified Code(s): E78.5 - Hyperlipidemia, unspecified Plan: - Atorvastatin, recommend follow up with pcp 11/23 - Continue with atorvastatin 11/24 - Continue plan. 11/27 - Continue with plan. - Continue with atrovastatin and HH diet 11/29 - Continue current med 11/30 - No changes in plan 12/02 - Continue with current meds (8) Lymphedema of both lower extremities Code(s): I89.0 - LYMPHEDEMA, NOT ELSEWHERE CLASSIFIED Status: Chronic Plan: - Will get echo, patient had 20 of lasix yesterday - Plan today is discontinue IV fluid, lasix. Will still get echo. 11/21 - Patient received echo, awaiting read. 11/22 - Awaiting echo read 11/23 - Contacting card for echo read 11/24 - No congestive heart failure noted on echo, but she does have elevated pulm artery 11/27 - Now on diamox instead of lasix. 11/28 - On both diamox and lasix. There is some concern that she may be gaining weight. Her current weight doesn't show much change from admission weight but bed scale may be completely accurate 11/29 - 5 liter out. Will monitor potassium level while on diamox. Mild bump in K 11/30 - More difficult to measure i/o now that patient is not with benitez, and has incontinence at time - However, patient still has edema, will follow her weight. 12/02 - Continue wound care (9) Morbid obesity Code(s): E66.01 - MORBID (SEVERE) OBESITY DUE TO EXCESS CALORIES Status: Chronic Plan: - Deputy Sheriff/Investigator patient on discharge 11/21 - Advance to diet. - butter liquefier on discharge 11/22 - Unchanged plan 11/23 - Deputy Sheriff/Investigator on discharge 11/24 - Continue plan 11/27 - Continue with plan. 11/28 - Unchanged. COntinue HH diet and career and guidance counselor 11/29 - Unchanged, continue plan 11/30 - Continue current management 12/01 - Continue to career and guidance counselor patient 12/02 - Deputy Sheriff/Investigator (10) Tobacco abuse Code(s): Z72.0 - TOBACCO USE Status: Chronic Plan: - Deputy Sheriff/Investigator patient on discharge. 11/21 - Increased her nicotine patch to 21 due to extensive smoking - Deputy Sheriff/Investigator on discharge 11/22 - Unchanged plan 11/23 - Deputy Sheriff/Investigator on discharge 11/24 - Continue plan 11/27 - Continue plan. 11/28 - COntinue nicotine patch 11/29 - Unchanged, continue plan 11/30 - Continue current management 12/01 - Continue advising patient 12/02 - Deputy Sheriff/Investigator
[2016-12-02] MEDS: Furosemide 20 MG/2 ML VIAL IVP SCH ×2 (09:50→21:58)
[2016-12-02] MEDS: Gabapentin 400 MG CAP PO SCH ×3 (09:51→21:55)
[2016-12-02] MEDS: Lisinopril 20 MG TAB PO SCH ×3 (09:54→21:58)
[2016-12-02] MEDS: acetaZOLAMIDE Sodium 500 mg Vial IVP SCH ×2 (09:55→21:58)
[2016-12-02] MEDS: Carvedilol 25 MG TAB PO SCH ×2 (09:55→17:03)
[2016-12-02] MEDS: Docusate 100 MG CAP PO SCH ×2 (09:55→21:54)
[2016-12-02] MEDS: Nicotine 21 MG PATCH TD SCH (09:56)
[2016-12-02] MEDS: Sterile Water 10 ML VIAL FS SCH ×2 (09:56→21:59)
[2016-12-02] MEDS: Enoxaparin Sodium 40 MG/0.4 ML SYRINGE SC SCH (10:00)
--- NOTE | 2016-12-02 14:02 | PRG ---
DATE OF SERVICE: 12/02/2016 SUBJECTIVE: Ms. Mindy Oliveira is better this morning. Less shortness of breath, cough. PHYSICAL EXAMINATION: VITAL SIGNS: Sats are 98% on 2 liters, temperature is 97, blood pressure 100/76. CHEST: No wheezing. CARDIAC: Normal S1, S2. No gallops. LABORATORY DATA: Electrolytes are normal. IMPRESSION: 1. Morbid obesity. 2. Obstructive sleep apnea. 3. Cellulitis. PLAN: No narcotics. Continue antibiotics, neb treatments, supportive care. We will follow.
[2016-12-02] MEDS: Fluticasone Propionate Nasal Spray 16 gm Bottle NASAL SCH (17:02)
[2016-12-02] MEDS: cefTRIAXone\\ROCEPHIN 1 GM in Sodium Chloride 0.9% 100 ML IVPB SCH (17:03)
--- NOTE | 2016-12-02 23:45 | ADD-PRG ---
ADDENDUM DATE OF SERVICE: 12/02/[address] Dean Dunbar's progress note for which I concur. The patient was seen and evaluated, exam ined and discussed with the residents. Basically is postoperative for her right fourth toe amputati on, has some chronic venous insufficiency issues and some stasis dermatitis problems and the main th ing is we are trying to keep her oxygen level elevated. It sounds like a fairly classic [place] , CO2 retainer especially at night. We are trying to get things evaluated and set up for her, but w e were having issues with payer status, etc,m but for now still on the same antibiotics and the same medication and CPAP at night, trying to urge compliance on that.
[2016-12-03 04:41] LABS: Anion Gap 14 mmol/L (10-20); BUN (Urea Nitrogen) 19 mg/dL (7.0-18.7); Calc. Creatinine Clearance 226 mL/min (70-130); Calcium 9.5 mg/dL (7.8-10.44); Carbon Dioxide 35 mmol/L (22-29); Chloride 97 mmol/L (98-107); Estimated GFR-MDRD 81; Magnesium 1.9 mg/dL (1.6-2.6)
[2016-12-03] MEDS: Acetaminophen 500 MG TAB PO SCH ×3 (05:45→21:55)
[2016-12-03] MEDS: Ibuprofen 800 MG TAB PO SCH ×3 (05:46→21:56)
[2016-12-03] MEDS: Enoxaparin Sodium 40 MG/0.4 ML SYRINGE SC SCH (08:18)
[2016-12-03] MEDS: acetaZOLAMIDE Sodium 500 mg Vial IVP SCH ×2 (08:18→21:56)
[2016-12-03] MEDS: Sterile Water 10 ML VIAL FS SCH ×2 (08:19→21:57)
[2016-12-03] MEDS: Furosemide 20 MG/2 ML VIAL IVP SCH ×2 (08:19→21:57)
[2016-12-03] MEDS: Docusate 100 MG CAP PO SCH ×2 (08:20→21:58)
[2016-12-03] MEDS: Nicotine 21 MG PATCH TD SCH (08:20)
[2016-12-03] MEDS: Lisinopril 20 MG TAB PO SCH ×2 (08:20→21:56)
[2016-12-03] MEDS: Fluticasone Propionate Nasal Spray 16 gm Bottle NASAL SCH (08:20)
[2016-12-03] MEDS: Carvedilol 25 MG TAB PO SCH ×2 (08:20→16:28)
[2016-12-03] MEDS: Gabapentin 400 MG CAP PO SCH ×3 (08:20→21:55)
--- NOTE | 2016-12-03 08:42 | PDOC.FM ---
- Objective Vital Signs & Weight: Vital Signs (12 hours) Resp BP Pulse Ox 12/03/16 08:20 151/90 H 12/03/16 02:33 12 12/02/16 22:58 16 90 L 12/02/16 21:58 151/90 H Weight Admit Weight 166.468 kg Weight 113.171 kg Most Recent Monitor Data Heart Rate from ECG 73 NIBP 138/69 NIBP BP-Mean 109 Respiration from ECG 24 SpO2 87 I&O: 12/02/16 12/03/16 12/04/16 06:59 06:59 06:59 Intake Total 410 1420 Balance 410 1420 Result Diagrams: 11/25/16 04:43 12/03/16 04:10 Dx/Plan - Plan Plan: 1. Acute exacerbation of chronic hypoxic hypercapnic respiratory failure
--- NOTE | 2016-12-03 09:59 | PDOC.FM ---
- Subjective Subjective: Patient doing ok, with no acute event overnight. - Objective MAR Reviewed: Yes Vital Signs & Weight: Vital Signs (12 hours) Temp Pulse Resp BP BP Pulse Ox 12/03/16 09:49 97 12/03/16 09:43 81 20 97 12/03/16 08:20 151/90 H 12/03/16 08:00 97.6 F 83 22 H 149/93 H 93 L 12/03/16 02:33 12 12/02/16 22:58 16 90 L 12/02/16 21:58 151/90 H Weight Admit Weight 166.468 kg Weight 113.171 kg Most Recent Monitor Data Heart Rate from ECG 73 NIBP 138/69 NIBP BP-Mean 109 Respiration from ECG 24 SpO2 87 I&O: 12/02/16 12/03/16 12/04/16 06:59 06:59 06:59 Intake Total 410 1420 240 Balance 410 1420 240 Result Diagrams: 11/25/16 04:43 12/03/16 04:10 Phys Exam - Physical Examination Constitutional: NAD HEENT: moist MMs Neck: supple Rhonchi Cardiovascular: RRR Gastrointestinal: soft, positive bowel sounds Musculoskeletal: edema present Neurological: moves all 4 limbs Lymphatic: no nodes Psychiatric: normal affect Deviation from normal: stasis dermatitis Dx/Plan (1) Acute respiratory failure with hypoxia and hypercapnia Code(s): J96.01 - ACUTE RESPIRATORY FAILURE WITH HYPOXIA; J96.02 - ACUTE RESPIRATORY FAILURE WITH HYPERCAPNIA Status: Acute Plan: Extubated today, satting low 90 on 15L O2 via max., will monitor and wean. Currently being worked up as possible heart failure. 11/21 - Extubated, sating well, O2 requirement decreased to 3.5 L on NC - Patient is more mentally awake then yesterday. - Plan to continue to wean O2, transfer to floor, advise on tobacco cessation 11/22 - No change on O2 from yesterday - Patient is speaking easily with no labored breathing - Pt to sit in chair TID, use incentive spirometry and work with PT today - Likely O2 on discharge 11/23 - Will continue titration. Will consider starting a blood gas. - Will continue lasix. - Will contact card for echo. 11/24 - Echo came back with elevated pulm artery pressure. - EF was normal, no read of heart failure, but still concerning for elevate pulmonary pressure - Currently, patient is doing better, back on NC. She will need to see pulm outpatient for sleep study. 11/27 - Needed minimal 4 hour bipap last night - Plan to floor, switch to cpap - Patient is more functional, out of bed. 11/28 - Switching to cpap - Patient is at same level of oxygenation while awake, 5 L NC requirement - She is getting out of bed and more active 11/29 - Off of bipap at night - Continue trying to titrate O2 down 11/30 - Had somnolence overnight. However, blood gas was improved compared to before. Possible tylenol 3 related, but her last dose was about 10 hour prior to the code. Will still stop it. 12/01 - No acute event last night 12/02 - No acute event with good oxygenation (2) Abscess of right leg Code(s): L02.415 - CUTANEOUS ABSCESS OF RIGHT LOWER LIMB Status: Acute Plan: Likely will de-escalate to levaquin based on sensitivity. Kidney function is good, will monitor as patient transitioned to levaquin. Continue wound care. 11/21 - Improving, but causes pain for patient. Will continue pain control. Will try adding NSAID - Surg feels wound is healing well, will continue to follow recs - ID recs cipro and keflex on discharge. 11/22 - Improving at this time, continue with wound vac and abx 11/23 - Improving, continue current plan. 11/24 - Improving, she will need cipro/keflex on discharge. - Day 7 of abx 11/27 - Continuing, abx, improving. 11/28 - Adding ceftriaxone onto levaquin after b iopsy result shows gangrene 11/29 - Continue with current abx 11/30 - Wound vac out, continue wet-dry changes 12/01 - Continue current plan 12/02 - Continue abx and wound care (3) Hypertension Code(s): I10 - ESSENTIAL (PRIMARY) HYPERTENSION Status: Acute Qualifiers: Qualified Code(s): I10 - Essential (primary) hypertension Plan: BP was in upper 150, has recently elevated with extubation. - Plan to titrate bp meds. 11/21 - BP was elevated overnight, was controlled with prn labetalol - Increasing lisinopril today to 20. - Continue lasix and coreg. 11/22 - Continue with current medication. - Evaluate lasix use as needed 11/23 - Not controlled, increasing patient's lisinopril to 40, will increase coreg next. 11/24 - Better controlled after lisinopril 20 bid. Will continue with current meds. 11/27 - BP under control. Continue lisinopril. WALTER may play a part, echo shows pulm artery hypertension. 11/28 - Continue current management. BP is at good control. 11/29 - Continue current management. 11/30 - Continue current management 12/01 - Continue current plan 12/02 BP Controlled, continue current med (4) Necrosis of toe Code(s): I96 - GANGRENE, NOT ELSEWHERE CLASSIFIED Status: Acute Plan: POD #3 - Plant is to follow up with surg rec. Will adjust abx as mentioned above. Wound care consulted. 11/21 - POD #3, follow with Surg recs, but it is improving based on surg's impression. - COntinue pain and current abx 11/22 - Day 4, continue with surg rec, pain control. 11/23 - Continue with surg recs. Recommended wet to dry dressing as outpatient. 11/24 - COntinue current plan. No new changes to her assessment. 11/27 - Continue with wound care, wet to dry dressing at home 11/28 - Biopsy result returned. Adding ceftriaxone. Consult with ID to see if this will need to be continued on discharged 11/29 - ID wants to continue with cipro/keflex plan at discharge 11/30 -Continue plan 12/01 - Continue current plan. 12/02 - Continue wound care, abx (5) Chronic hypercapnic respiratory failure Code(s): J96.12 - CHRONIC RESPIRATORY FAILURE WITH HYPERCAPNIA Status: Chronic Plan: - Likely a chronic problem with elevated bicarb in 30's. Patient also has obesity, possible WALTER, thought not diagnosised. - Plan is to continue with O2 supplementation. Patient did indicate she doesn't use O2 at baseline today. - May need O2 at home. 11/21 - Patient has 35 year smoking history with wheezing on exam. - Chronic issue with elevated bicarb. Treatment with breathing treatment and supplemental oxygen. 11/22 - Likely o2 on discharge - Rec to patient that she need pulm/sleep study as outpatient. 11/23 - Will start on nightly cpap, recommend pulm follow up outpatient. 11/24 - Keep on current plan. 11/27 - Bipap requirement down, transition cpap at night - Talked with patient why her diet is restricted, she is agreeable that low fat diet is appropriate. - Chronic issue, continue with current management. 11/29 - Continue with cpap, O2 during day 12/01 - Continue bipap. Wean o2 to 3L today. Will check during rounds to see how she; s doing. Request nursing get patient chair to accommodate her and to walk with patient during day. 12/02 - Wore bipap last night. Again reiterated with patient to sit up during day and walk. Was noted that she didn't participated with PT. She said PT didn't come but PT note state she refused. (6) DM2 (diabetes mellitus, type 2) Status: Chronic Qualifiers: Qualified Code(s): E11.8 - Type 2 diabetes mellitus with unspecified complications Plan: A1c of 6.4. Her glucose during this stay has been acceptable - Will keep on SSI. Consider adding atorvastin 40, and metformin on discharge. 11/21 - Continue SSI. Add atorvastatin. 11/22 - Continue with current medication. 11/23 - Continue current plan. 11/24 - Continue with SSI. BG is controlled at this time. 11/27 - Continue with SSI. - Continue with plan. Glucose at good control. 11/29 - Good glucose control, continue with plan 11/30 - Continue management 12/02 - Continue with current SSI (7) HLD (hyperlipidemia) Code(s): E78.5 - HYPERLIPIDEMIA, UNSPECIFIED Status: Chronic Qualifiers: Qualified Code(s): E78.5 - Hyperlipidemia, unspecified Plan: - Atorvastatin, recommend follow up with pcp 11/23 - Continue with atorvastatin 11/24 - Continue plan. 11/27 - Continue with plan. - Continue with atrovastatin and HH diet 11/29 - Continue current med 11/30 - No changes in plan 12/02 - Continue with current meds (8) Lymphedema of both lower extremities Code(s): I89.0 - LYMPHEDEMA, NOT ELSEWHERE CLASSIFIED Status: Chronic Plan: - Will get echo, patient had 20 of lasix yesterday - Plan today is discontinue IV fluid, lasix. Will still get echo. 11/21 - Patient received echo, awaiting read. 11/22 - Awaiting echo read 11/23 - Contacting card for echo read 11/24 - No congestive heart failure noted on echo, but she does have elevated pulm artery 11/27 - Now on diamox instead of lasix. 11/28 - On both diamox and lasix. There is some concern that she may be gaining weight. Her current weight doesn't show much change from admission weight but bed scale may be completely accurate 11/29 - 5 liter out. Will monitor potassium level while on diamox. Mild bump in K 11/30 - More difficult to measure i/o now that patient is not with benitez, and has incontinence at time - However, patient still has edema, will follow her weight. 12/02 - Continue wound care (9) Morbid obesity Code(s): E66.01 - MORBID (SEVERE) OBESITY DUE TO EXCESS CALORIES Status: Chronic Plan: - Geophysical Engineer patient on discharge 11/21 - Advance to diet. - tobacco sweeper on discharge 11/22 - Unchanged plan 11/23 - Geophysical Engineer on discharge 11/24 - Continue plan 11/27 - Continue with plan. 11/28 - Unchanged. COntinue HH diet and residential child care counselor 11/29 - Unchanged, continue plan 11/30 - Continue current management 12/01 - Continue to residential child care counselor patient 12/02 - Geophysical Engineer (10) Tobacco abuse Code(s): Z72.0 - TOBACCO USE Status: Chronic Plan: - Geophysical Engineer patient on discharge. 11/21 - Increased her nicotine patch to 21 due to extensive smoking - Geophysical Engineer on discharge 11/22 - Unchanged plan 11/23 - Geophysical Engineer on discharge 11/24 - Continue plan 11/27 - Continue plan. 11/28 - COntinue nicotine patch 11/29 - Unchanged, continue plan 11/30 - Continue current management 12/01 - Continue advising patient 12/02 - Geophysical Engineer - Plan Plan: 1. Overall, plan is same as before. Patient is stable. Will discuss with son about possible discharge today. PT indicated that of today, they think she is physically cleared, with concern that she is not able to have the strength to take care all of her ADLs and suggested home health for discharge. As patient does not have that, will discuss with son if he can provide her that. Will discuss with Rosa today about abx on discharge. Patient to follow up with surg in 2 weeks.
--- NOTE | 2016-12-03 13:51 | PRG ---
DATE OF SERVICE: 12/03/2016 SUBJECTIVE: Mindy Oliveira is a morbidly obese female who is snoring earlier this morning. PHYSICAL EXAMINATION: VITAL SIGNS: Sats are 97% on 3 liters, blood pressure 143/90, and respiratory rate 18. CHEST: Decreased breath sounds, no wheezing. CARDIAC: Normal S1, S2, no gallops. ABDOMEN: Massive. LABORATORY DATA: Bicarbonate is 25. IMPRESSION: Morbid obesity, sleep apnea, and cellulitis. PLAN: Outpatient sleep study. Continue antibiotics, supportive care, on narcotics.
[2016-12-03] MEDS: Cephalexin 250 MG CAP PO SCH ×2 (14:28→21:55)
--- NOTE | 2016-12-03 17:04 | ADD-PRG ---
ADDENDUM: 12/03/2016 Please see the note from Dr. Dean Dunbar for which I concur. The patient was seen, evaluated, examined and discussed with the residents by bedside. Basically patient is stable, definitely has [place] n type syndrome from which she has chronic hypoxia from severe obesity. She has massive decondition ing from severe obesity. Toe wound is fine with wet-to-dry dressing. She is on Levaquin which can be switched to p.o. Basically as long as she can get up and start walking some, really no reason wh y we cannot discharge her ideally on home oxygen. Certainly outpatient sleep study would be ideal; however, she is unfunded and so that is going to be a difficult problem, but will continue on oxygen at least. I talked to her length about the importance of weight loss for all of her numerous medic al problems. PHYSICAL EXAMINATION: Today: CHEST: Clear. CARDIOVASCULAR: Regular rate and rhythm. EXTREMITIES: Edema seems to be better. Does have some chronic venous insufficiency changes and some stasis dermatitis, but will likely be d ischarged on antibiotics, topical steroid creams for the stasis dermatitis, and otherwise, we will r esume most of her other home medications, and will be discharged on home oxygen as well.
[2016-12-03] MEDS: Cipro 250 MG TAB PO SCH (21:55)
[2016-12-04 05:18] LABS: Anion Gap 13 mmol/L (10-20); BUN (Urea Nitrogen) 18 mg/dL (7.0-18.7); Calc. Creatinine Clearance 152 mL/min (70-130); Calcium 9.4 mg/dL (7.8-10.44); Carbon Dioxide 36 mmol/L (22-29); Chloride 97 mmol/L (98-107); Estimated GFR-MDRD 76; Magnesium 1.9 mg/dL (1.6-2.6)
[2016-12-04] MEDS: Ibuprofen 800 MG TAB PO SCH ×2 (06:05→14:30)
[2016-12-04] MEDS: Cipro 250 MG TAB PO SCH (06:05)
[2016-12-04] MEDS: Cephalexin 250 MG CAP PO SCH ×2 (06:05→14:29)
[2016-12-04] MEDS: Acetaminophen 500 MG TAB PO SCH ×2 (06:05→14:29)
--- NOTE | 2016-12-04 08:46 | PRG ---
DATE OF SERVICE: 12/04/2016 She feels better and wants to go home. PHYSICAL EXAMINATION: VITAL SIGNS: Temperature is 98.7, pulse 75, respirations 16, O2 sat 95%, blood pressure 144/73. Jayme potter is still on oxygen at 3 liters nasal cannula with O2 sats 93%. HEENT: Unremarkable. NECK: No JVD. CHEST: Fairly clear. CARDIAC: S1 and S2 regular. ABDOMEN: Soft. EXTREMITIES: Edematous from the knees downward. She has a bandage over her right toe. ASSESSMENT: 1. Status post gangrenous toe. 2. Morbid obesity. 3. Narcotic sensitivity. RECOMMENDATIONS: She is probably ready to go home on O2. She needs a sleep study sometime in the future, but at the current time she has no insurance. I have told her that as soon as she is able t o afford it she needs to have a sleep study done. She should avoid all narcotic medication as that puts her at high risk for respiratory failure related to her sleep apnea.
--- NOTE | 2016-12-04 09:01 | PDOC.FM ---
- Subjective Subjective: Patient did well overnight, no complaints at this time besides pain in leg which is improved with tylenol. Denies HIGGINS, CP, SOB, weakness, numbness, N/V. Reports she feels ok sometimes when she goes off oxygen. - Objective MAR Reviewed: Yes Vital Signs & Weight: Vital Signs (12 hours) Temp Pulse Resp BP Pulse Ox 12/04/16 08:53 89 L 12/04/16 07:59 75 20 89 L 12/04/16 07:35 98.7 F 75 16 144/73 H 95 12/04/16 03:24 93 L 12/04/16 03:02 20 12/04/16 00:41 83 18 91 L 12/03/16 22:29 16 Weight Admit Weight 166.468 kg Weight 159.392 kg Most Recent Monitor Data Heart Rate from ECG 73 NIBP 138/69 NIBP BP-Mean 109 Respiration from ECG 24 SpO2 87 I&O: 12/03/16 12/04/16 12/05/16 06:59 06:59 06:59 Intake Total 1420 1340 Balance 1420 1340 Result Diagrams: 11/25/16 04:43 12/04/16 04:17 <Mario Castro - Last Filed: 12/04/16 11:11> - Objective Vital Signs & Weight: Vital Signs (12 hours) Temp Pulse Resp BP BP Pulse Ox 12/04/16 11:58 98.4 F 65 18 149/99 H 92 L 12/04/16 09:37 144/73 H 12/04/16 08:53 89 L 12/04/16 07:59 75 20 89 L 12/04/16 07:35 98.7 F 75 16 144/73 H 95 12/04/16 03:24 93 L 12/04/16 03:02 20 12/04/16 00:41 83 18 91 L Weight Admit Weight 166.468 kg Weight 159.392 kg Most Recent Monitor Data Heart Rate from ECG 73 NIBP 138/69 NIBP BP-Mean 109 Respiration from ECG 24 SpO2 87 I&O: 12/03/16 12/04/16 12/05/16 06:59 06:59 06:59 Intake Total 1420 1340 Balance 1420 1340 Result Diagrams: 11/25/16 04:43 12/04/16 04:17 <Viola Lorenz - Last Filed: 12/04/16 12:10> Phys Exam - Physical Examination Constitutional: NAD HEENT: PERRLA, moist MMs breath sounds distant, some ronchi Cardiovascular: RRR, no significant murmur Gastrointestinal: soft, positive bowel sounds edema present Neurological: moves all 4 limbs Psychiatric: normal affect, A&O x 3 <Mario Castro - Last Filed: 12/04/16 11:11> Dx/Plan (1) Hypertensive urgency Code(s): I16.0 - HYPERTENSIVE URGENCY Status: Resolved Plan: present when she first presented, AM values stable, continue to monitor (2) Abscess of right leg Code(s): L02.415 - CUTANEOUS ABSCESS OF RIGHT LOWER LIMB Status: Acute Plan: Dr. Valencia consulted continue with vanc and rene Bld cx pending (3) Leukocytosis Code(s): D72.829 - ELEVATED WHITE BLOOD CELL COUNT, UNSPECIFIED Status: Acute (4) Thrombocytosis Status: Acute (5) STEVE (acute kidney injury) Code(s): N17.9 - ACUTE KIDNEY FAILURE, UNSPECIFIED Status: Acute Plan: improved from yesterday, NS at 100ml/hr (6) HLD (hyperlipidemia) Code(s): E78.5 - HYPERLIPIDEMIA, UNSPECIFIED Status: Chronic (7) Morbid obesity Code(s): E66.01 - MORBID (SEVERE) OBESITY DUE TO EXCESS CALORIES Status: Chronic (8) DM2 (diabetes mellitus, type 2) Status: Chronic Plan: SSI, accuchecks - Plan Plan: (1) acute respiratory failure with hypoxia and hypercapnia - improved, will refrain from giving narcotics - titrate oxygen to O2sat of 88-92%. (2) abscess of right leg - continue with antibiotics and wound care (3) Right 4th toe amputation - continue with antibiotics - daily wet to dry wound care - will coordinate with wound care for home wound changes - Contact [facility] for outpatient wound changes (4) HTN stable, continue to monitor (5) Chronic hypercapnic respiratory failure - d/c home on O2 titrated to O2sat of 88-92%. - coordinate with for payment since patient is uninsured (6) DM2 - continue with SSI (7) HLD - continue with atorvastatin (8) Morbid obesity - vocational rehabilitation counselor on weight loss (9) Tobacco abuse - patient reports she has quit, will follow up in outpatient setting. <Mario Castro - Last Filed: 12/04/16 11:11> Attending Addendum - Attending Addendum I personally evaluated the patient and discussed the management with Dr. Castro I agree with the History, Examination, Assessment and Plan documented above with any addition or exceptions noted below. 51 yo female admitted for necrotic right foot wound complicated by diabetes and cellulitis HD# 18 POD# 17 for Rt 4th phalanx and MT amputation Hospital stay also complicated by acute on chronic hypercapnic respiratory failure worsened by narcotic use and bronchitis. Patient doing well. No complications or complaints overnight. Attempted D/c yesterday but patient not able to get O2 for home use until this week. Plan today: Follow up with case management to see if able to get home O2. Will need daily wet to dry wound dressing changes at home. Family member to assist with wound care today to better assist at home. Patient to follow up at home with paper work for insurance coverage and disability. Pt to call and schedule appointment with [facility] for later this week. Otherwise patient is ready for d/c. Switch IV meds to PO. ABrayMD <Viola Lorenz - Last Filed: 12/04/16 12:10>
[2016-12-04] MEDS: Carvedilol 25 MG TAB PO SCH (09:35)
[2016-12-04] MEDS: acetaZOLAMIDE Sodium 500 mg Vial IVP SCH (09:35)
[2016-12-04] MEDS: Enoxaparin Sodium 40 MG/0.4 ML SYRINGE SC SCH (09:36)
[2016-12-04] MEDS: Fluticasone Propionate Nasal Spray 16 gm Bottle NASAL SCH (09:36)
[2016-12-04] MEDS: Docusate 100 MG CAP PO SCH (09:36)
[2016-12-04] MEDS: Gabapentin 400 MG CAP PO SCH ×2 (09:37→14:30)
[2016-12-04] MEDS: Nicotine 21 MG PATCH TD SCH (09:37)
[2016-12-04] MEDS: Lisinopril 20 MG TAB PO SCH (09:37)
[2016-12-04] MEDS: Furosemide 40 MG TAB PO SCH ×2 (09:37→14:30)
[2016-12-04] MEDS: Sterile Water 10 ML VIAL FS SCH (09:38)
--- NOTE | 2016-12-04 11:17 | DIS-2 ---
DATE OF ADMISSION: 11/16/2016 DATE OF DISCHARGE: 12/03/2016 RESIDENT: Dr. Dean Dunbar ADMITTING ATTENDING: Dr. Daisy Chance DISCHARGE ATTENDING: Dr. Tristin Rivers CONSULTS: 1. Dr. Kalia Valencia, Surgery. 2. Dr. Hayden Yao, Pulmonology. 3. Dr. Benson Lee, Infectious Disease. PROCEDURES: 1. Foot x-ray on 11/16/2016. Impression; no radiographic evidence of osteomyelitis. 2. Echocardiogram. Impression; ejection fraction estimated at 60-65%, enlarged right ventricular cavity, moderately dilated left atrium, mildly enlarged right atrium size. Mild mitral regurg, mitral annular calcification, moderate tricuspid regurgitation, mildly elevated pulmonary artery pressure. 3. Amputation of right great toe, right fourth toe and metatarsal due to necrotic right fourth toe. 4. Endotracheal intubation and central line placement for reason of poor IV access and acute respiratory distress. PRIMARY DIAGNOSIS: Severe sepsis with end-organ dysfunction. SECONDARY DIAGNOSES: 1. Chronic hypoxic and hypercapneic respiratory failure, likely from Pickwickian syndrome and chronic obstructive pulmonary disease. 2. Abscess of right leg. 3. Necrosis of fourth toe on right side. 4. Hypertension. 5. Diabetes type 2, borderline. 6. Hyperlipidemia. 7. Stasis dermatitis of both lower extremities. 8. Morbid obesity. 9. Tobacco abuse. 10. Obstructive sleep apnea. Patient discharge was delayed, will complete discharge when patient is discharged MTDD
[2016-12-04] MEDS ORDERED: Potassium Chloride 20 MEQ TAB PO SCH (12:00)
[2016-12-04 16:21] VITALS: BP 156/99; TEMP 98.3
== END 2016-12-04 16:25 | disposition home or self-care (01) | DRG 853 ==
LOC: ERS 14:49 → T4-A 15:29 → CCU 11-17 07:02 → T4-A 11-21 11:27 → IMCU/EMU 11-23 14:50 → SURG B 11-27 10:24 → IMCU/EMU 11-29 20:32 → T4-B 11-30 16:07
PROVIDERS: ADMIT Student in an Organized Health Care Education/Training Program; ATTEND Student in an Organized Health Care Education/Training Program
PROC: 5A09457 Assistance with Respiratory Ventilation, 24-96 Consecutive Hours, Continuous Positive Airway Pressure (ICD-10-PCS; 2016-11-16)
PROC: 3E0234Z Introduction of Serum, Toxoid and Vaccine into Muscle, Percutaneous Approach (ICD-10-PCS; 2016-11-16)
PROC: 0Y6V0Z0 Detachment at Right 4th Toe, Complete, Open Approach (ICD-10-PCS; principal; 2016-11-17)
PROC: 0Y6P0Z0 Detachment at Right 1st Toe, Complete, Open Approach (ICD-10-PCS; 2016-11-17)
PROC: 0BH17EZ Insertion of Endotracheal Airway into Trachea, Via Natural or Artificial Opening (ICD-10-PCS; 2016-11-17)
PROC: 05HM33Z Insertion of Infusion Device into Right Internal Jugular Vein, Percutaneous Approach (ICD-10-PCS; 2016-11-17)
PROC: B543ZZA Ultrasonography of Right Jugular Veins, Guidance (ICD-10-PCS; 2016-11-17)
PROC: 0HDKXZZ Extraction of Right Lower Leg Skin, External Approach (ICD-10-PCS; 2016-11-17)
PROC: 5A1945Z Respiratory Ventilation, 24-96 Consecutive Hours (ICD-10-PCS; 2016-11-17)
DX: A41.89 Other specified sepsis (principal); J96.21 Acute and chronic respiratory failure with hypoxia; R65.21 Severe sepsis with septic shock; N17.9 Acute kidney failure, unspecified; L03.115 Cellulitis of right lower limb; I13.0 Hypertensive heart and chronic kidney disease with heart failure and stage 1 through stage 4 chronic kidney disease, or unspecified chronic kidney disease; I50.9 Heart failure, unspecified; E87.2 Acidosis; E66.2 Morbid (severe) obesity with alveolar hypoventilation; I24.8 Other forms of acute ischemic heart disease; Z68.43 Body mass index [BMI] 50.0-59.9, adult; E78.5 Hyperlipidemia, unspecified; F17.210 Nicotine dependence, cigarettes, uncomplicated; I87.8 Other specified disorders of veins; G47.33 Obstructive sleep apnea (adult) (pediatric); E11.22 Type 2 diabetes mellitus with diabetic chronic kidney disease; N18.2 Chronic kidney disease, stage 2 (mild); I16.0 Hypertensive urgency
CPT/HCPCS: 36415; 36416; 71010; 80048; 80061; 80202; 81001; 81003; 81015; 81025; 82553; 82805; 83605; 83735; 83880; 84443; 85025; 85652; 87070; 87077; 87186; 87205; 88305; 88311; 90471; 90715; 93005; 93010; 93306; 94002; 94003; 94640; 94660; A4216; C9113; G8978-GP-CJ; G8978-GP-CN; G8979-GP-CI; G8979-GP-CK; G8987-GO-CL; G8988-GO-CJ; J0696; J1120; J1642; J1650; J1940; J2060; J2250; J2270; J2543; J2704; J2765; J3010; J3370; J7050; J7620

== ENCOUNTER 2017-03-20 11:30 | Inpatient (IN) | payer SELFPAY ==
[2017-03-20] MEDS ORDERED: Furosemide 40 MG/4 ML VIAL ONE (13:32)
[2017-03-20] MEDS ORDERED: Nitroglycerin 2% Ointment 1 INCH/1 GM Packet ONE (13:32)
[2017-03-20 13:37] LABS: Hemoglobin 12.4 g/dL (12.0-16.0); Mean Corpuscular HGB CONC 29.5 g/dL (32.0-36.0); Mean Corpuscular Volume 88.1 fl (81.0-99.0); Platelet Count 252 thou/uL (130-400); RBC Distribution Width 18.4 % (11.5-14.5); Red Blood Cell (RBC) Count 4.78 mill/uL (4.20-5.40); White Blood Cell (WBC) Count 10.9 thou/uL (4.8-10.8)
--- NOTE | 2017-03-20 13:40 | RAD ---
PORTABLE AP CHEST X-RAY: 03/20/2017 HISTORY: Dyspnea. Shortness of breath. CHF. COMPARISON: 11/23/2016 FINDINGS: The right internal jugular vein central venous catheter has been removed. The cardiac silhouette is magnified by projection but is stable in size and does appear mildly enlarged. The pulmonary vascula ture is borderline increased but similar to prior exam. There is a minimal hazy area of patchy densi ty in the right mid lung zone, probably related to superimposition of structures. The lungs are othe rwise clear. There has been no other interval change. IMPRESSION: 1. No acute cardiopulmonary process. 2. Mild cardiomegaly. POS: [facility]
[2017-03-20 13:49] LABS: ALT (SGPT) 127 U/L (8-55); AST (SGOT) 118 U/L (5-34); Albumin 2.9 g/dL (3.5-5.0); Alkaline Phosphatase 96 U/L (40-150); Anion Gap 12 mmol/L (10-20); BUN (Urea Nitrogen) 15 mg/dL (7.0-18.7); Bilirubin, Total 1.2 mg/dL (0.2-1.2); CK (CPK) 31 U/L (29-168); Calc. Creatinine Clearance 0 mL/min (70-130); Calcium 8.9 mg/dL (7.8-10.44); Carbon Dioxide 30 mmol/L (22-29); Chloride 98 mmol/L (98-107); Estimated GFR-MDRD 73; Globulin 3.8 g/dL (2.4-3.5); Glucose 81 mg/dL (70-105); Lipase 5 U/L (8-78); Potassium 3.6 mmol/L (3.5-5.1); Protein, Total 6.7 g/dL (6.0-8.3); Sodium 136 mmol/L (136-145)
[2017-03-20 13:53] LABS: CKMB 1.5 ng/mL (0-6.6); Troponin I 0.086 ng/mL (< 0.028)
[2017-03-20 14:10] LABS: #Basophils 0.1 thou/uL (0.0-0.2); #Eosinphils 0.1 thou/uL (0.0-0.7); #Lymphocytes 2.1 thou/uL (1.20-3.40); #Monocytes 0.8 thou/uL (0.11-0.59); #Neutrophils 7.9 thou/uL (1.40-6.50); %Basophils 0.8 % (0.0-1.0); %Eosinophils 0.7 % (0.0-10.0); %Lymphocytes 18.8 % (21.0-51.0); %Monocytes 7.1 % (0.0-10.0); %Neutrophils 72.5 % (42.0-75.0); Anisocytosis SLIGHT = 6-15 cells (100X) (0-5/hpf); Hypochromia SLIGHT = 6-15 cells (100X) (0-5/hpf); MDiff Complete? YES; PLT Morphology Comment Appears Adequate; Polychromasia SLIGHT = 2-3 cells (100X) (0-2/hpf)
[2017-03-20 14:23] LABS: Bilirubin Negative (Negative); Blood, Urine Negative (Negative); Clarity CLOUDY (Clear); Glucose, Urine (Dipstick) Negative (Negative); Leukocyte Small (Negative); Nitrite Positive (Negative); Protein, Urine (Dipstick) Trace mg/dL (Neg-Trace); Specific Gravity, Urine 1.017 (1.002-1.036)
[2017-03-20 14:52] LABS: Bacteria/HPF 4+ HPF (None Seen); Hyaline Casts/LPF 4-6 HYALINE CAST LPF (0-3 Hyaline); RBC/HPF 0-3 HPF (0-3); Squamous Epithelial 0-3 HPF (0-3)
[2017-03-20 16:36] LABS: Troponin I 0.023 ng/mL (< 0.028)
[2017-03-20] MEDS ORDERED: cefTRIAXone\\ROCEPHIN 1 GM in Sodium Chloride 0.9% 100 ML IVPB SCH (17:15)
--- NOTE | 2017-03-20 17:25 | HP ---
DATE OF ADMISSION: 03/20/2017 CHIEF COMPLAINT: Shortness of breath. HISTORY OF PRESENT ILLNESS: This is a 51-year-old white female, morbidly obese. She has known histo ry of congestive heart failure, history of hypertension and morbidly obese patient. The patient was recently admitted to the hospital for right toe infection and had an amputation following which the t oe got infected and she was hospitalized at [facility] and this was from 12/16/2016-09/2016, she was in [facility] and then she developed volume overload state and was sta rted on Lasix and was discharged from there. The patient lost her insurance and she happened to loss coverage and she could not afford any of her medications and was just starting Lasix for the past 2 weeks. Today, she was noticed that she was having worsening shortness of breath and increasing pain in her lower extremities and her abdomen fullness was noted. She has decided to come to the hospital along with her sister and she was hypoxic with 88% on room air. She was started on Lasix. Her ches t x-ray showing evidence of bilateral pleural effusions. The patient is seen in the ER room. She wa s alert and oriented, did not appear in acute distress. She did respond very well to 40 mg of Lasix. She did not have any chest pain at this time. No nausea, no vomiting, no diarrhea. She does compl ain of orthopnea and difficulty sleeping supine. She also complains of lower extremity pains, but ot herwise no specific pain. No history of fever, no history of cough. PAST MEDICAL HISTORY: 1. Hypertension. 2. History of congestive heart failure. 3. Chronic leg pain. PAST SURGICAL HISTORY: Right second toe amputation. SOCIAL HISTORY: The patient is a nonsmoker. No history of alcohol, no history of illicit drug use. FAMILY HISTORY: No significant family history of coronary artery disease is noted. No history of an y premature deaths in the family and no cancers in the family. REVIEW OF SYSTEMS: All 12 systems are reviewed with the patient thoroughly and found to be negative at this time. The following complete review of systems was negative, unless otherwise mentioned in t he HPI or below: Constitutional: Weight loss or gain, sense of well-being, ability to conduct usual activities, exerc ise tolerance. Skin/Breast: Rash, itching, changes in hair growth or loss, nail changes, breast lumps, tenderness, swelling, nipple discharge. Eyes: Vision, double vision, tearing, blind spots, pain. ENT/Mouth: Headaches (location, time of onset, duration, precipitating factors), vertigo, lightheade dness, injury. Vision, double vision, tearing, blind spots, pain, nose bleeding, colds, obstruction, discharge, dental difficulties, gingival bleeding, dentures, neck stiffness, pain, tenderness, masses in thyroid or other areas Cardiovascular: Precordial pain, substernal distress, palpitations, syncope, dyspnea on exertion, or thopnea, nocturnal paroxysmal dyspnea, edema, cyanosis, hypertension, heart murmurs, varicosities, ph lebitis, claudication. Respiratory: Pain, shortness of breath, wheezing, stridor, cough, hemoptysis, fever or night sweats Gastrointestinal: Poor appetite, dysphagia, indigestion, abdominal pain, heartburn, eructation, naus ea, vomiting, hematemesis, jaundice, constipation, or diarrhea, abnormal stools (annamaria-colored, tarry, bloody, greasy, foul smelling), flatulence, hemorrhoids, recent changes in bowel habits. Genitourinary: Urgency, frequency, dysuria, nocturia, hematuria, polyuria, oliguria, unusual (or noam nge in) color of urine, stones, hesitancy, change in size of stream, dribbling, acute retention or in continence, libido, potency. Musculoskeletal: Pain, swelling, redness or heat of muscles or joints, limitation, of motion, muscul ar weakness, atrophy, cramps. Neurologic/Psychiatric: Convulsions, paralyses, tremor, incoordination, paraesthesias, difficulties with memory of speech, sensory or motor disturbances, or muscular coordination (ataxia, tremor), emot ional problems, anxiety, depression, previous psychiatric care, unusual perceptions, hallucinations. Allergy/Immunologic: Skin rash, anemia, bleeding tendency, polydipsia, polyuria, intolerance to heat or cold. HOME MEDICATIONS: Coreg 25 mg p.o. b.i.d., Keflex 500 mg p.o. q.8 hours, Cipro 500 mg p.o. b.i.d., L asix 40 mg p.o. b.i.d., gabapentin 400 mg p.o. t.i.d., lisinopril 20 mg p.o. b.i.d., nicotine patch. PHYSICAL EXAMINATION: VITAL SIGNS: Blood pressure is 181/80, heart rate is 89, respiratory rate is 20, and saturation is 9 3% on 3 liters. GENERAL: The patient is morbidly obese. She is seen sitting on the bed 45 degrees inclination with no acute distress at this time. HEENT: Atraumatic, normocephalic. PERRLA. Extraocular movements were intact. Oral mucosa is pink and moist. CARDIOVASCULAR: S1 and S2 normal. No murmurs, no rubs, no gallops. LUNGS: Bilateral air entry was reduced with increased crackles noted in the lower bases. No acute s igns of respiratory distress were noted. ABDOMEN: Distended markedly and very tense abdomen with signs suggestive of third spacing fluid and bowel sounds normal. MUSCULOSKELETAL: No calf tenderness. The patient has a severe congestion in the lower extremities w ith pedal edema, pitting type 3+ up to the knees. No joint tenderness, no joint swelling. SKIN: No cyanosis. Erythema was noted in the lower extremities, likely secondary to congestion seco ndary to venous congestion. CENTRAL NERVOUS SYSTEM: Cranial nerve examination II-XII intact. No focal deficits were noted. NECK: JVD was noted. No thyromegaly, no lymphadenopathy. LYMPHATICS: No evidence of any generalized lymphadenopathy was noted. Cervical and inguinal lymph n odes were rechecked was normal. LABORATORY DATA: WBC 10.9, hemoglobin is 12.4, hematocrit is 42.1, platelets 252. Sodium 136, potassium 3.6, chloride 98, bicarbonate 30, BUN 15, creatinine 0.83, AST 118, ALT 127. B [employer] is 429, troponin 0.086 and the next one was 0.023. ASSESSMENT AND PLAN: 1. Acute congestive heart failure, likely diastolic dysfunction. 2. Acute hypoxic respiratory failure. 3. Non-ST elevation myocardial infarction. 4. Acute urinary tract infection. 5. Hypertension, uncontrolled. PLAN: 1. Plan is to start the patient on Lasix 40 mg IV q.8 hours. Aggressive IV hydration and monitor th e urine outputs very closely. We will look for any evidence of renal dysfunction with aggressive diu resis. We will watch the daily weight. Patient ideally needs at least 2-3 days in the hospital for IV diuresis because of acute congestive heart failure. 2. The patient has evidence of urinary tract infection with normal white count. We will closely mon itor with IV Rocephin 1 gram daily. 3. Patient has elevated cardiac enzymes, but repeat cardiac enzyme was normal, so this could be most likely from demand ischemia from acute congestive heart failure. We will closely monitor the patien t. Continue the patient on aspirin and beta krista. 4. Patient has mildly elevated liver enzymes, most likely from right heart failure. We will closely monitor this patient. 5. DVT prophylaxis, Lovenox 40 mg subcu daily. I spent 70 minutes for this patient. Of this, one hour is critical care time. Critical care time [facility] at 04:15 p.m. to 5 p.m.
[2017-03-20] MEDS ORDERED: Ondansetron HCl/PF 4 MG/2 ML Vial IVP PRN (17:34)
[2017-03-20] MEDS ORDERED: HYDROcodone/Acetaminophen 5/325 mg Tablet ONE (17:48)
[2017-03-20] MEDS ORDERED: HYDROcodone/Acetaminophen 7.5/325 mg Tablet ONE (17:56)
[2017-03-20] MEDS: HYDROcodone/Acetaminophen 7.5/325 mg Tablet PO PRN ×2 (17:57→23:41)
[2017-03-20] MEDS: cefTRIAXone\\ROCEPHIN 1 GM, Syringe 0.4 ML in Sterile Water 9.6 ML SLOW IVP SCH (18:48)
[2017-03-20 20:16] LABS: Troponin I 0.074 ng/mL (< 0.028)
[2017-03-20] MEDS ORDERED: Famotidine/PF 20 mg/2ml Vial ONE (21:40)
[2017-03-20 23:11] VITALS: BMI 58.1
[2017-03-20] MEDS: Carvedilol 6.25 MG TAB PO SCH (23:15)
[2017-03-20] MEDS: Famotidine/PF 20 mg/2ml Vial SLOW IVP SCH (23:16)
[2017-03-20] MEDS: Docusate 100 MG CAP PO SCH (23:16)
[2017-03-21] MEDS: HYDROcodone/Acetaminophen 7.5/325 mg Tablet PO PRN ×3 (03:15→21:21)
[2017-03-21 04:55] LABS: ALT (SGPT) 118 U/L (8-55); AST (SGOT) 74 U/L (5-34); Albumin 3.2 g/dL (3.5-5.0); Alkaline Phosphatase 128 U/L (40-150); Anion Gap 12 mmol/L (10-20); BUN (Urea Nitrogen) 13 mg/dL (7.0-18.7); Bilirubin, Direct 0.4 mg/dL (0.1-0.3); Bilirubin, Total 0.7 mg/dL (0.2-1.2); Calc. Creatinine Clearance 188 mL/min (70-130); Calcium 8.9 mg/dL (7.8-10.44); Carbon Dioxide 36 mmol/L (22-29); Chloride 95 mmol/L (98-107); Estimated GFR-MDRD 71; Glucose 173 mg/dL (70-105); Potassium 3.6 mmol/L (3.5-5.1); Protein, Total 7.3 g/dL (6.0-8.3); Sodium 139 mmol/L (136-145)
[2017-03-21 05:02] LABS: #Eosinphils 0.1 thou/uL (0.0-0.7); #Lymphocytes 2.2 thou/uL (1.20-3.40); #Monocytes 1.1 thou/uL (0.11-0.59); %Basophils 0.2 % (0.0-1.0); %Eosinophils 0.8 % (0.0-10.0); %Lymphocytes 15.1 % (21.0-51.0); %Monocytes 7.4 % (0.0-10.0); %Neutrophils 76.4 % (42.0-75.0); Hemoglobin 12.1 g/dL (12.0-16.0); Mean Corpuscular HGB CONC 27.6 g/dL (32.0-36.0); Mean Corpuscular Hemoglobin 25.2 pg (27.0-31.0); Mean Corpuscular Volume 91.3 fl (81.0-99.0); Mean Platelet Volume 9.5 fL (7.4-10.4); Platelet Count 334 thou/uL (130-400); RBC Distribution Width 18.1 % (11.5-14.5); Red Blood Cell (RBC) Count 4.83 mill/uL (4.20-5.40); White Blood Cell (WBC) Count 14.4 thou/uL (4.8-10.8)
[2017-03-21] MEDS ORDERED: Furosemide 40 MG/4 ML VIAL SLOW IVP SCH ×3 (06:00→14:00)
[2017-03-21] MEDS ORDERED: FLU VACC QS2017-18 36 mo. & older 0.5 ML SYRINGE IM ONE (09:00)
[2017-03-21] MEDS: Carvedilol 6.25 MG TAB PO SCH ×2 (09:58→20:59)
[2017-03-21] MEDS: Lisinopril 2.5 MG TAB PO SCH (09:58)
[2017-03-21] MEDS: Spironolactone 25 MG TAB PO SCH (09:58)
[2017-03-21] MEDS: Famotidine/PF 20 mg/2ml Vial SLOW IVP SCH ×2 (09:59→20:58)
[2017-03-21] MEDS: Docusate 100 MG CAP PO SCH ×2 (09:59→20:59)
[2017-03-21] MEDS: Enoxaparin Sodium 40 MG/0.4 ML SYRINGE SC SCH (09:59)
[2017-03-21 13:05] LABS: Actual Bicarbonate (HCO3a) 41.6 mEq/L (22-26); Base Excess (BEa) 8.4 mEq/L (0 (+/-) 2.5); Calcium, Ionized 1.2 mmol/L (1.12-1.30); Hematocrit-ABG 48.7 % (36.0-47.0); Hemoglobin (Hb) 11.9 g/dL (12.0-16.0); O2 Tension (PaO2) 166.1 mmHg (80.0-100.0)
[2017-03-21 13:22] LABS: CO2 Tension 128.9 mmHg (35.0-45.0); pH, Arterial 7.13 (7.35-7.45)
[2017-03-21 13:23] LABS: ALV-art Gradient 379.775 (0-20); Puncture Site L.B.
--- NOTE | 2017-03-21 13:23 | PDOC.PN ---
- Subjective Encounter Start Date: 03/21/17 Encounter Start Time: 13:00 Patient is very lethargic, hard to wake up, She is able to be awake on sternal rub, discussed with her Friend at bedside, pt was intubated during last admission and had to do CPR in the past. Will need to transfer npt to [facility] - Objective Resuscitation Status: Resuscitation Status FULL:Full Resuscitation MAR Reviewed: Yes Vital Signs & Weight: Vital Signs (12 hours) Temp Pulse Resp BP BP Pulse Ox 03/21/17 12:42 97.5 F L 107 H 20 121/87 91 L 03/21/17 09:58 92 137/91 H 03/21/17 08:56 97.5 F L 92 20 137/91 H 95 03/21/17 08:00 97.5 F L 92 20 95 03/21/17 04:20 97.7 F 92 18 138/96 H 94 L Weight Weight 328 lb 7.82 oz I&O: 03/20/17 03/21/17 03/22/17 06:59 06:59 06:59 Intake Total 310 Balance 310 Result Diagrams: 03/21/17 03:38 03/21/17 03:38 Radiology Reviewed by me: Yes EKG Reviewed by me: Yes (No ST seg changes) Phys Exam - Physical Examination HEENT: PERRLA, moist MMs Neck: no nodes, full ROM Respiratory: wheezing present (Crackles Lower base, ) Cardiovascular: RRR, no significant murmur Gastrointestinal: soft, non-tender Musculoskeletal: edema present Neurological: non-focal, normal sensation, moves all 4 limbs Lymphatic: no nodes Dx/Plan (1) Acute respiratory failure with hypoxia and hypercapnia Code(s): J96.01 - ACUTE RESPIRATORY FAILURE WITH HYPOXIA; J96.02 - ACUTE RESPIRATORY FAILURE WITH HYPERCAPNIA Status: Acute (2) Hypertension Code(s): I10 - ESSENTIAL (PRIMARY) HYPERTENSION Status: Acute Qualifiers: Hypertension type: unspecified Qualified Code(s): I10 - Essential (primary ) hypertension (3) DM2 (diabetes mellitus, type 2) Status: Chronic Qualifiers: Diabetes mellitus complication status: with unspecified complications Diabetes mellitus termite control representative insulin use: without long-term use Qualified Code( s): E11.8 - Type 2 diabetes mellitus with unspecified complications (4) Lymphedema of both lower extremities Code(s): I89.0 - LYMPHEDEMA, NOT ELSEWHERE CLASSIFIED Status: Chronic (5) Morbid obesity Code(s): E66.01 - MORBID (SEVERE) OBESITY DUE TO EXCESS CALORIES Status: Chronic (6) Acute pyelonephritis Code(s): N10 - ACUTE PYELONEPHRITIS Status: Acute - Plan cont current plan of care, plan discussed w/ family, PT/OT, incentive spirometry , DVT proph w/lovenox Plan: Patient is noted to have severe respoiratory acidosis from CO2 retention, Willneed to Move her down to ICU for BIPAp, amandatent was intubated last admission at [facility]. Will consult Pulmonary, Wiill start pt on Duonebs and Albuteral nebs and Start her on Iv steroids. Patient has pylenephritis, started on IV rocephin, will continue the same, pt has worsening leucocytosis, developing sepsis,. will monitor closley; Will continue with aggresive diuresis 80mg IV BID will increae too. Waiting on echo result, will start pt on ACEI, and BB at discharge. Morbid obesidty will encourage pt excersise, will do PT/ OT evelaution. DM type2 , Well controlled on SSI and lantus, Will clsoley monitor now pt will be on Steroids. - Discharge Day Encounter end time: 13:45 (critical care time 45 Min) Review of Systems - Review of Systems Constitutional: weakness, malaise Eyes: negative: Pain, Vision Change, Conjunctivae Inflammation, Eyelid Inflammation, Redness, Other ENT: negative: Ear Pain, Ear Discharge, Nose Pain, Nose Discharge, Nose Congestion, Mouth Pain, Mouth Swelling, Throat Pain, Throat Swelling, Other Respiratory: Cough, Shortness of Breath, SOB with Excertion, Wheezing Cardiovascular: orthopnea, edema Gastrointestinal: negative: Nausea, Vomiting, Abdominal Pain, Diarrhea, Constipation, Melena, Hematochezia, Other Genitourinary: negative: Dysuria, Frequency, Incontinence, Hematuria, Retention , Other Musculoskeletal: negative: Neck Pain, Shoulder Pain, Arm Pain, Back Pain, Hand Pain, Leg Pain, Foot Pain, Other Skin: negative: Rash, Lesions, Richard, Bruising, Other Neurological: negative: Weakness, Numbness, Incoordination, Change in Speech, Confusion, Seizures, Other - Medications/Allergies Allergies/Adverse Reactions: Allergies Allergy/AdvReac Type Severity Reaction Status Date / Time No Known Allergies Allergy Verified 03/20/17 23:05 Medications: Current Medications Hydrocodone Bitart/Acetaminophen (Obion 7.5/325) 1 tab PO Q4H PRN PRN Reason: Moderate Pain (4-6) Last Admin: 03/21/17 10:05 Dose: 1 tab Aspirin (Aspirin Chewable) 81 mg PO DAILY [facility] Last Admin: 03/21/17 09:58 Dose: 81 mg Carvedilol (Coreg) 6.25 mg PO BID [facility] Last Admin: 03/21/17 09:58 Dose: 6.25 mg Docusate Sodium (Colace) 100 mg PO BID [facility] Last Admin: 03/21/17 09:59 Dose: Not Given Enoxaparin Sodium (Lovenox) 40 mg SC 0900 [facility] Last Admin: 03/21/17 09:59 Dose: 40 mg Famotidine (Pepcid) 20 mg SLOW IVP Q12HR [facility] Last Admin: 03/21/17 09:59 Dose: 20 mg Furosemide (Lasix) 80 mg SLOW IVP 0600,1400 [facility] Furosemide (Lasix) 40 mg SLOW IVP 1300 [facility] Stop: 03/21/17 15:00 Last Admin: 03/21/17 12:53 Dose: 40 mg Ceftriaxone Sodium 1 gm/ (Syringe 0.4 ml/ Sterile Water) 10 mls @ 120 mls/hr SLOW IVP 1800 [facility] Last Admin: 03/20/17 18:48 Dose: Not Given Lisinopril (Zestril) 2.5 mg PO DAILY [facility] Last Admin: 03/21/17 09:58 Dose: 2.5 mg Ondansetron HCl (Zofran) 4 mg IVP Q6H PRN PRN Reason: Nausea/Vomiting Spironolactone (Aldactone) 12.5 mg PO DAILY [facility] Last Admin: 03/21/17 09:58 Dose: 12.5 mg
[2017-03-21] MEDS ORDERED: Albuterol Sulfate 2.5 mg/3 ml Neb NEB PRN (13:33)
[2017-03-21 14:13] LABS: Hemoglobin A1c 5.4 % (4.0-6.0)
--- NOTE | 2017-03-21 14:14 | RAD ---
CHEST 1 VIEW: HISTORY: Dyspnea. COMPARISON: 03/20/17. FINDINGS: Cardiac silhouette is magnified and enlarged. Pulmonary vasculature is slightly more engorged with m ild bilateral perihilar infiltrate and reticulonodular interstitial prominence. There is no lobar co nsolidation or evidence of pneumothorax. IMPRESSION: Cardiomegaly with mild pulmonary vascular congestion. POS: [facility]
--- NOTE | 2017-03-21 19:21 | CON ---
DATE OF CONSULTATION: 03/21/2017 CONSULTING PHYSICIAN: Hospitalist Group. REASON FOR CONSULTATION: Acute respiratory failure related to obesity hypoventilation syndrome. HISTORY OF PRESENT ILLNESS: Ms. Oliveira is well known to me. She is a 51-year-old female with obes ity hypoventilation syndrome. She has been receiving most of her care in the last several months at [facility] and she is requesting transfer to that facility at this time. She t ells me she has no insurance, so I do think that transfer will be possible. She is currently in the hospital for evaluation of shortness of breath. She has been hospitalized si [facility] 03/20/2017. Today, she was noted to be lethargic. I do not have any record of her receiving amanda n medication. She was transferred to the [facility] with acute on chronic hypercapnic respiratory failure. She improved quickly when she was on the BiPAP and now is awake and is requesting that she be allow ed to drink water. PAST MEDICAL HISTORY: 1. Obesity hypoventilation syndrome without a sleep study in the past. Apparently, she has been juaquin ble to obtain a sleep study. 2. Hypertension. 3. Congestive heart failure. 4. Leg pain. PAST SURGICAL HISTORY: Right second toe amputation. SOCIAL HISTORY: Smokes about a pack per day, does not consume alcohol. FAMILY MEDICAL HISTORY: Unremarkable for lung disease. REVIEW OF SYSTEMS: Twelve point review of systems otherwise negative. PHYSICAL EXAMINATION: VITAL SIGNS: O2 sat was running in the mid 90s on BiPAP, temperature 97.5, pulse 88, respiratory rat e 21, blood pressure 120/87. GENERAL: She is awake and alert. HEENT: Pupils react. Sclerae are anicteric. Oropharynx, poor dentition. NECK: Without adenopathy or JVD. LUNGS: Poor air movement without wheezing or rhonchi. CARDIAC: S1, S2 regular without murmur. ABDOMEN: Soft, obese, nontender, nondistended. EXTREMITIES: Global edema throughout. LABORATORY DATA: White blood cell count 14.4, hematocrit 44.1, platelet count 334. Sodium 139, pota ssium 3.6, chloride 95, CO2 36, BUN 13, creatinine 0.8, glucose 173, pH 7.13, PCO2 128, pO2 166 that was on 100% nonrebreather. Chest x-ray shows cardiomegaly without effusions or infiltrates. ASSESSMENT: 1. Obesity hypoventilation syndrome with acute on chronic hypercapnic respiratory failure. 2. Tobacco abuse. 3. Morbid obesity. RECOMMENDATIONS: 1. Switch diuretics to acetazolamide to prevent metabolic alkalosis which will worsen her pCO2. 2. BiPAP as needed. 3. Smoking cessation. 4. Again need eventual sleep study as an outpatient.
[2017-03-21] MEDS: cefTRIAXone\\ROCEPHIN 1 GM, Syringe 0.4 ML in Sterile Water 9.6 ML SLOW IVP SCH (19:38)
[2017-03-21] MEDS: acetaZOLAMIDE Sodium 500 mg Vial IVP SCH (21:03)
[2017-03-21] MEDS: Sterile Water 10 ML VIAL FS SCH (21:04)
[2017-03-21] MEDS: Insulin Detemir 100 UNITS/ML 10 UNITS in Pre-Filled Syringe SC SCH (21:07)
[2017-03-22 05:57] LABS: #Lymphocytes 0.8 thou/uL (1.20-3.40); #Monocytes 0.1 thou/uL (0.11-0.59); #Neutrophils 10.3 thou/uL (1.40-6.50); %Basophils 0.1 % (0.0-1.0); %Lymphocytes 7.1 % (21.0-51.0); %Monocytes 0.9 % (0.0-10.0); %Neutrophils 91.8 % (42.0-75.0); Hemoglobin 11.3 g/dL (12.0-16.0); Mean Corpuscular HGB CONC 27.2 g/dL (32.0-36.0); Mean Platelet Volume 9.1 fL (7.4-10.4); Platelet Count 299 thou/uL (130-400); RBC Distribution Width 18.5 % (11.5-14.5); Red Blood Cell (RBC) Count 4.54 mill/uL (4.20-5.40); White Blood Cell (WBC) Count 11.2 thou/uL (4.8-10.8)
[2017-03-22 06:16] LABS: ALT (SGPT) 84 U/L (8-55); AST (SGOT) 32 U/L (5-34); Albumin 2.9 g/dL (3.5-5.0); Alkaline Phosphatase 97 U/L (40-150); Anion Gap 11 mmol/L (10-20); BUN (Urea Nitrogen) 13 mg/dL (7.0-18.7); Bilirubin, Direct 0.3 mg/dL (0.1-0.3); Bilirubin, Total 0.5 mg/dL (0.2-1.2); Calc. Creatinine Clearance 198 mL/min (70-130); Calcium 9.3 mg/dL (7.8-10.44); Carbon Dioxide 36 mmol/L (22-29); Chloride 94 mmol/L (98-107); Estimated GFR-MDRD 75; Glucose 168 mg/dL (70-105); Potassium 4.6 mmol/L (3.5-5.1); Protein, Total 7.2 g/dL (6.0-8.3); Sodium 136 mmol/L (136-145)
[2017-03-22] MEDS: HYDROcodone/Acetaminophen 7.5/325 mg Tablet PO PRN (06:33)
[2017-03-22] MEDS: acetaZOLAMIDE Sodium 500 mg Vial IVP SCH ×2 (08:13→21:50)
[2017-03-22] MEDS: Sterile Water 10 ML VIAL FS SCH ×2 (08:13→21:52)
[2017-03-22] MEDS: Lisinopril 2.5 MG TAB PO SCH (08:14)
[2017-03-22] MEDS: Enoxaparin Sodium 40 MG/0.4 ML SYRINGE SC SCH (08:14)
[2017-03-22] MEDS: Carvedilol 6.25 MG TAB PO SCH ×2 (08:14→21:50)
[2017-03-22] MEDS: Famotidine/PF 20 mg/2ml Vial SLOW IVP SCH ×2 (08:14→21:51)
[2017-03-22] MEDS: Docusate 100 MG CAP PO SCH ×2 (08:14→21:50)
[2017-03-22] MEDS: Spironolactone 25 MG TAB PO SCH (08:14)
--- NOTE | 2017-03-22 11:39 | PRG ---
DATE OF SERVICE: 03/22/2017 SUBJECTIVE: She is still somewhat confused. She is wearing the BiPAP intermittently during the day. PHYSICAL EXAMINATION: VITAL SIGNS: Temperature 97.3, pulse 80, blood pressure 124/69, O2 sat 93% on 3 liters. HEENT: Unremarkable. NECK: No JVD. LUNGS: Clear. CARDIAC: S1 and S2 regular. ABDOMEN: Soft. EXTREMITIES: No edema. LABORATORY DATA: Sodium 136, potassium 4.6, chloride 94, CO2 36, BUN 13, creatinine 0.8, glucose 168 . White blood cell count 11.2, hematocrit 41.7, and platelet count 299. ASSESSMENT: 1. Obesity hypoventilation syndrome which is worsened by narcotics. 2. Tobacco abuse. RECOMMENDATIONS: 1. Stop the spironolactone for the time being. Uses acetazolamide for diuresis. 2. Do not give the patient any narcotic medication. 3. Continue steroids, nebulization treatments.
--- NOTE | 2017-03-22 15:29 | PDOC.PN ---
- Subjective Encounter Start Date: 03/22/17 Encounter Start Time: 12:30 Patient is seen in ICU, she is very hypoxic on Bipap, pt having cravings for smoking and wanting to go out to smoke. Discussed with alissa on phone and explained about the paitent unable to follow commands. - Objective Resuscitation Status: Resuscitation Status FULL:Full Resuscitation MAR Reviewed: Yes Vital Signs & Weight: Vital Signs (12 hours) Temp Pulse Resp BP BP Pulse Ox 03/22/17 11:08 98.1 F 80 20 115/73 92 L 03/22/17 11:00 75 16 03/22/17 08:14 88 124/69 03/22/17 07:32 97.3 F L 88 19 93 L 03/22/17 07:00 97.3 F L 88 19 116/91 H 93 L 03/22/17 06:34 92 L 03/22/17 06:28 89 28 H 03/22/17 03:55 98.5 F 87 19 124/63 91 L Weight Weight 322 lb 6.4 oz I&O: 03/21/17 03/22/17 03/23/17 06:59 06:59 06:59 Intake Total 310 835 Output Total 1250 Balance 310 -415 Result Diagrams: 03/22/17 05:39 03/22/17 05:39 Additional Labs: Accuchecks 03/22/17 03/22/17 03/21/17 11:01 05:40 20:27 POC Glucose 173 H 165 H 110 Radiology Reviewed by me: Yes Phys Exam - Physical Examination HEENT: PERRLA, moist MMs Neck: no nodes, no JVD, full ROM Respiratory: wheezing present Cardiovascular: RRR, no significant murmur, no rub, gallop Gastrointestinal: soft, non-tender, positive bowel sounds Musculoskeletal: pulses present, edema present Neurological: non-focal, normal sensation, moves all 4 limbs Lymphatic: no nodes Psychiatric: normal affect, A&O x 3 Skin: no rash, normal turgor Dx/Plan (1) Acute respiratory failure with hypoxia and hypercapnia Code(s): J96.01 - ACUTE RESPIRATORY FAILURE WITH HYPOXIA; J96.02 - ACUTE RESPIRATORY FAILURE WITH HYPERCAPNIA Status: Acute (2) Hypertension Code(s): I10 - ESSENTIAL (PRIMARY) HYPERTENSION Status: Acute Qualifiers: Hypertension type: unspecified Qualified Code(s): I10 - Essential (primary ) hypertension (3) DM2 (diabetes mellitus, type 2) Status: Chronic Qualifiers: Diabetes mellitus complication status: with unspecified complications Diabetes mellitus software programmer insulin use: without nursing home use Qualified Code( s): E11.8 - Type 2 diabetes mellitus with unspecified complications (4) Lymphedema of both lower extremities Code(s): I89.0 - LYMPHEDEMA, NOT ELSEWHERE CLASSIFIED Status: Chronic (5) Morbid obesity Code(s): E66.01 - MORBID (SEVERE) OBESITY DUE TO EXCESS CALORIES Status: Chronic (6) Acute pyelonephritis Code(s): N10 - ACUTE PYELONEPHRITIS Status: Acute - Plan cont current plan of care, plan discussed w/ family, continue antibiotics, PT/OT , respiratory therapy, incentive spirometry, DVT proph w/lovenox Patient is noted to have severe respoiratory acidosis from CO2 retention, continue her on Bipap and follow pulmonary recommedations. pt has C02 retention , advised to avoid Diuretic for Metabolic alcolsis from Hco3 retention, pt start on Acetazolamide Patient has pylenephritis, started on IV rocephin, will continue the same, pt has worsening leucocytosis, developing sepsis,. will monitor closley; Will d/c 80mg IV BID for now due to above reasons.will increae too. Waiting on echo result, will start pt on ACEI, and BB at discharge. Morbid obesidty will encourage pt excersise, will do PT/ OT evelaution. DM type2 , Well controlled on SSI and lantus, Will clsoley monitor now pt will be on Steroids. - Discharge Day Encounter end time: 13:00 Review of Systems - Review of Systems Constitutional: weakness Eyes: negative: Pain, Vision Change, Conjunctivae Inflammation, Eyelid Inflammation, Redness, Other ENT: negative: Ear Pain, Ear Discharge, Nose Pain, Nose Discharge, Nose Congestion, Mouth Pain, Mouth Swelling, Throat Pain, Throat Swelling, Other Respiratory: Cough, Shortness of Breath, SOB with Excertion, Wheezing Cardiovascular: orthopnea, paroxysmal nocturnal dyspnea, edema. negative: chest pain, palpitations, light headedness, other Gastrointestinal: negative: Nausea, Vomiting, Abdominal Pain, Diarrhea, Constipation, Melena, Hematochezia, Other Genitourinary: negative: Dysuria, Frequency, Incontinence, Hematuria, Retention , Other Musculoskeletal: Leg Pain, Foot Pain. negative: Neck Pain, Shoulder Pain, Arm Pain, Back Pain, Hand Pain, Other Skin: negative: Rash, Lesions, Richard, Bruising, Other Neurological: negative: Weakness, Numbness, Incoordination, Change in Speech, Confusion, Seizures, Other - Medications/Allergies Allergies/Adverse Reactions: Allergies Allergy/AdvReac Type Severity Reaction Status Date / Time Opioids - Morphine Analogues Allergy Severe respiratory Verified 03/22/17 10:09 depression Medications: Current Medications Acetazolamide Sodium (Diamox) 250 mg IVP BID [facility] Last Admin: 03/22/17 08:13 Dose: 250 mg Albuterol Sulfate (Ventolin) 2.5 mg NEB Q2HR PRN PRN Reason: Wheezing Albuterol/Ipratropium (Duoneb) 3 ml NEB [id number] [facility] Last Admin: 03/22/17 11:00 Dose: 3 ml Aspirin (Aspirin Chewable) 81 mg PO DAILY [facility] Last Admin: 03/22/17 08:14 Dose: 81 mg Carvedilol (Coreg) 6.25 mg PO BID [facility] Last Admin: 03/22/17 08:14 Dose: 6.25 mg Docusate Sodium (Colace) 100 mg PO BID [facility] Last Admin: 03/22/17 08:14 Dose: Not Given Enoxaparin Sodium (Lovenox) 40 mg SC 0900 [facility] Last Admin: 03/22/17 08:14 Dose: 40 mg Famotidine (Pepcid) 20 mg SLOW IVP Q12HR [facility] Last Admin: 03/22/17 08:14 Dose: 20 mg Ceftriaxone Sodium 1 gm/ (Syringe 0.4 ml/ Sterile Water) 10 mls @ 120 mls/hr SLOW IVP 1800 [facility] Last Admin: 03/21/17 19:38 Dose: 10 mls Insulin Detemir 10 units/ (Miscellaneous Medication) 0.1 mls @ 0 mls/hr SC HS [facility] Last Admin: 03/21/17 21:07 Dose: Not Given Lisinopril (Zestril) 2.5 mg PO DAILY [facility] Last Admin: 03/22/17 08:14 Dose: 2.5 mg Methylprednisolone Sodium Succinate (Solu-Medrol) 40 mg IVP Q8HR [facility] Last Admin: 03/22/17 13:50 Dose: 40 mg Ondansetron HCl (Zofran) 4 mg IVP Q6H PRN PRN Reason: Nausea/Vomiting Sterile Water (Water For Injection) 5 ml FS BID [facility] Last Admin: 03/22/17 08:13 Dose: 5 ml
[2017-03-22] MEDS: cefTRIAXone\\ROCEPHIN 1 GM, Syringe 0.4 ML in Sterile Water 9.6 ML SLOW IVP SCH (18:07)
[2017-03-22] MEDS: Insulin Detemir 100 UNITS/ML 10 UNITS in Pre-Filled Syringe SC SCH (21:51)
[2017-03-22] MEDS ORDERED: Lorazepam 2 MG/ML VIAL SLOW IVP SCH (22:00)
[2017-03-23 06:02] LABS: #Lymphocytes 0.9 thou/uL (1.20-3.40); #Monocytes 0.8 thou/uL (0.11-0.59); #Neutrophils 10.4 thou/uL (1.40-6.50); %Lymphocytes 7.5 % (21.0-51.0); %Monocytes 6.4 % (0.0-10.0); %Neutrophils 86.1 % (42.0-75.0); Mean Corpuscular HGB CONC 27.9 g/dL (32.0-36.0); Mean Corpuscular Hemoglobin 25.1 pg (27.0-31.0); Mean Platelet Volume 9.2 fL (7.4-10.4); Platelet Count 315 thou/uL (130-400); RBC Distribution Width 18.5 % (11.5-14.5); Red Blood Cell (RBC) Count 4.39 mill/uL (4.20-5.40)
[2017-03-23 06:10] LABS: Anion Gap 10 mmol/L (10-20); BUN (Urea Nitrogen) 15 mg/dL (7.0-18.7); Calc. Creatinine Clearance 193 mL/min (70-130); Calcium 9.7 mg/dL (7.8-10.44); Carbon Dioxide 37 mmol/L (22-29); Chloride 95 mmol/L (98-107); Estimated GFR-MDRD 78; Glucose 147 mg/dL (70-105); Potassium 4.2 mmol/L (3.5-5.1); Sodium 138 mmol/L (136-145)
--- NOTE | 2017-03-23 09:16 | PRG ---
DATE OF SERVICE: 03/23/2017 The patient is somnolent on BiPAP this morning. Apparently she was awake last night and was off BiPA P for a large amount of night. PHYSICAL EXAMINATION: VITAL SIGNS: Temperature 97.9, pulse 83, respirations 20, O2 saturation 94%, blood pressure 162/86. HEENT: Unremarkable. NECK: No JVD. CHEST: Clear. CARDIAC: S1 and S2 regular. ABDOMEN: Soft, obese, nontender. EXTREMITIES: Edematous throughout. LABORATORY DATA: Sodium 138, potassium 4.2, chloride 95, CO2 37, BUN 15, creatinine 0.7, glucose 147 . White blood cell count 12, hematocrit 39.6, platelet count 315. ASSESSMENT: 1. Obesity hypoventilation syndrome. 2. Chronic obstructive pulmonary disease with exacerbation. 3. Tobacco abuse. PLAN: 1. Increase acetazolamide. 2. Avoid all narcotics. 3. Decrease steroid dose. 4. I have adjusted her BiPAP pressures that she can use while she is wearing it. Hopefully we can e xtend her time off the BiPAP.
[2017-03-23] MEDS: acetaZOLAMIDE Sodium 500 mg Vial IVP SCH ×2 (09:41→20:36)
[2017-03-23] MEDS: Sterile Water 10 ML VIAL FS SCH ×2 (09:41→20:36)
[2017-03-23] MEDS: Docusate 100 MG CAP PO SCH ×2 (10:23→20:46)
[2017-03-23] MEDS: Carvedilol 6.25 MG TAB PO SCH ×2 (10:23→20:48)
[2017-03-23] MEDS: Enoxaparin Sodium 40 MG/0.4 ML SYRINGE SC SCH (10:23)
[2017-03-23] MEDS: Lisinopril 2.5 MG TAB PO SCH (10:24)
[2017-03-23] MEDS: Famotidine/PF 20 mg/2ml Vial SLOW IVP SCH ×2 (10:24→20:36)
--- NOTE | 2017-03-23 15:37 | PDOC.PN ---
- Subjective Encounter Start Date: 03/23/17 Encounter Start Time: 15:15 Patient is seen today, Drowsy and Disoriented,. Constantly says she wants to go out. - Objective Resuscitation Status: Resuscitation Status FULL:Full Resuscitation MAR Reviewed: Yes Vital Signs & Weight: Vital Signs (12 hours) Temp Pulse Pulse Pulse Pulse Resp BP 03/23/17 14:00 90 20 03/23/17 12:38 86 12 03/23/17 11:05 97.8 F 95 18 03/23/17 10:24 87 24 H 03/23/17 10:23 147/64 H 03/23/17 10:15 92 03/23/17 09:35 82 89 86 03/23/17 08:00 97.9 F 87 24 H 03/23/17 07:31 97.9 F 83 20 03/23/17 06:10 96 22 H BP BP BP BP Pulse Ox Pulse Ox 03/23/17 14:00 150/79 H 92 L 03/23/17 12:38 03/23/17 11:05 116/85 94 L 03/23/17 10:24 147/64 H 94 L 03/23/17 10:23 03/23/17 10:15 147/64 H 94 L 03/23/17 09:35 156/78 H 168/84 H 166/82 H 03/23/17 08:00 94 L 03/23/17 07:31 162/86 H 94 L 03/23/17 06:10 97 Weight Weight 308 lb 12.8 oz I&O: 03/22/17 03/23/17 03/24/17 06:59 06:59 06:59 Intake Total 835 900 245 Output Total 1250 1025 Balance -415 -125 245 Result Diagrams: 03/23/17 05:26 03/23/17 05:26 Additional Labs: Accuchecks 03/22/17 16:43 POC Glucose 161 H Radiology Reviewed by me: Yes Phys Exam - Physical Examination HEENT: PERRLA, moist MMs Neck: no nodes, no JVD Respiratory: wheezing present Cardiovascular: no significant murmur, no rub Gastrointestinal: soft, non-tender Musculoskeletal: pulses present, edema present Neurological: non-focal, normal sensation Lymphatic: no nodes Psychiatric: normal affect, A&O x 3 Dx/Plan (1) Acute respiratory failure with hypoxia and hypercapnia Code(s): J96.01 - ACUTE RESPIRATORY FAILURE WITH HYPOXIA; J96.02 - ACUTE RESPIRATORY FAILURE WITH HYPERCAPNIA Status: Acute (2) Hypertension Code(s): I10 - ESSENTIAL (PRIMARY) HYPERTENSION Status: Acute Qualifiers: Hypertension type: unspecified Qualified Code(s): I10 - Essential (primary ) hypertension (3) DM2 (diabetes mellitus, type 2) Status: Chronic Qualifiers: Diabetes mellitus complication status: with unspecified complications Diabetes mellitus intermediate teacher insulin use: without intermediate teacher use Qualified Code( s): E11.8 - Type 2 diabetes mellitus with unspecified complications (4) Lymphedema of both lower extremities Code(s): I89.0 - LYMPHEDEMA, NOT ELSEWHERE CLASSIFIED Status: Chronic (5) Morbid obesity Code(s): E66.01 - MORBID (SEVERE) OBESITY DUE TO EXCESS CALORIES Status: Chronic (6) Acute pyelonephritis Code(s): N10 - ACUTE PYELONEPHRITIS Status: Acute - Plan cont current plan of care, respiratory therapy, incentive spirometry, DVT proph w/lovenox, DVT proph w/SCDs Patient is noted to have severe respoiratory acidosis from CO2 retention, continue her on Bipap intermittantly and follow pulmonary recommedations. pt has C02 retention, advised to avoid Diuretic for Metabolic alcolsis from Hco3 retention, pt start on Acetazolamide, stbale now with 3 liter nasal canula. Patient has pylenephritis, started on IV rocephin, will continue the same, pt has worsening leucocytosis, developing sepsis,. will monitor closley; Waiting on echo result, will start pt on ACEI, and BB at discharge. Morbid obesidty will encourage pt excersise, will do PT/ OT evelaution. DM type2 , Well controlled on SSI and lantus, Will clsoley monitor now pt will be on Steroids. Patient constantly asking to go out, She is high risk if she goes home against medical advice. Expalined this to yesterday on phone. - Discharge Day Encounter end time: 15:50 Review of Systems - Review of Systems Constitutional: weakness Eyes: negative: Pain, Vision Change, Conjunctivae Inflammation, Eyelid Inflammation, Redness, Other ENT: negative: Ear Pain, Ear Discharge, Nose Pain, Nose Discharge, Nose Congestion, Mouth Pain, Mouth Swelling, Throat Pain, Throat Swelling, Other Respiratory: Shortness of Breath, SOB with Excertion, Wheezing Cardiovascular: negative: chest pain, palpitations, orthopnea, paroxysmal nocturnal dyspnea, edema, light headedness, other Gastrointestinal: negative: Nausea, Vomiting, Abdominal Pain, Diarrhea, Constipation, Melena, Hematochezia, Other Genitourinary: negative: Dysuria, Frequency, Incontinence, Hematuria, Retention , Other Musculoskeletal: negative: Neck Pain, Shoulder Pain, Arm Pain, Back Pain, Hand Pain, Leg Pain, Foot Pain, Other Skin: negative: Rash, Lesions, Richard, Bruising, Other - Medications/Allergies Allergies/Adverse Reactions: Allergies Allergy/AdvReac Type Severity Reaction Status Date / Time Opioids - Morphine Analogues Allergy Severe respiratory Verified 03/22/17 10:09 depression Medications: Current Medications Acetazolamide Sodium (Diamox) 500 mg IVP BID [facility] Last Admin: 03/23/17 09:41 Dose: 500 mg Albuterol Sulfate (Ventolin) 2.5 mg NEB Q2HR PRN PRN Reason: Wheezing Albuterol/Ipratropium (Duoneb) 3 ml NEB [id number] [facility] Last Admin: 03/23/17 12:38 Dose: 3 ml Aspirin (Aspirin Chewable) 81 mg PO DAILY [facility] Last Admin: 03/23/17 10:23 Dose: Not Given Carvedilol (Coreg) 6.25 mg PO BID [facility] Last Admin: 03/23/17 10:23 Dose: Not Given Docusate Sodium (Colace) 100 mg PO BID [facility] Last Admin: 03/23/17 10:23 Dose: Not Given Enoxaparin Sodium (Lovenox) 40 mg SC 0900 [facility] Last Admin: 03/23/17 10:23 Dose: Not Given Famotidine (Pepcid) 20 mg SLOW IVP Q12HR [facility] Last Admin: 03/23/17 10:24 Dose: Not Given Ceftriaxone Sodium 1 gm/ (Syringe 0.4 ml/ Sterile Water) 10 mls @ 120 mls/hr SLOW IVP 1800 [facility] Last Admin: 03/22/17 18:07 Dose: 10 mls Insulin Detemir 10 units/ (Miscellaneous Medication) 0.1 mls @ 0 mls/hr SC HS [facility] Last Admin: 03/22/17 21:51 Dose: Not Given Lisinopril (Zestril) 2.5 mg PO DAILY [facility] Last Admin: 03/23/17 10:24 Dose: Not Given Methylprednisolone Sodium Succinate (Solu-Medrol) 20 mg IVP Q8HR [facility] Last Admin: 03/23/17 14:44 Dose: Not Given Ondansetron HCl (Zofran) 4 mg IVP Q6H PRN PRN Reason: Nausea/Vomiting Sterile Water (Water For Injection) 5 ml FS BID [facility] Last Admin: 03/23/17 09:41 Dose: 5 ml
[2017-03-23] MEDS: cefTRIAXone\\ROCEPHIN 1 GM, Syringe 0.4 ML in Sterile Water 9.6 ML SLOW IVP SCH (19:26)
[2017-03-23] MEDS: Insulin Detemir 100 UNITS/ML 10 UNITS in Pre-Filled Syringe SC SCH (20:46)
[2017-03-24] MEDS: Carvedilol 6.25 MG TAB PO SCH ×3 (09:21→21:06)
[2017-03-24] MEDS: Lisinopril 2.5 MG TAB PO SCH ×2 (09:21→09:41)
[2017-03-24] MEDS: Docusate 100 MG CAP PO SCH ×3 (09:21→21:08)
[2017-03-24] MEDS: acetaZOLAMIDE Sodium 500 mg Vial IVP SCH ×2 (09:40→21:08)
[2017-03-24] MEDS: Famotidine/PF 20 mg/2ml Vial SLOW IVP SCH ×2 (09:41→21:07)
[2017-03-24] MEDS: Sterile Water 10 ML VIAL FS SCH ×2 (09:41→21:08)
[2017-03-24] MEDS: Enoxaparin Sodium 40 MG/0.4 ML SYRINGE SC SCH (09:42)
--- NOTE | 2017-03-24 15:06 | PDOC.PN ---
- Subjective Encounter Start Date: 03/24/17 Encounter Start Time: 11:30 Trevor is on BIpap today, Was resting. No family member in the room. - Objective Resuscitation Status: Resuscitation Status FULL:Full Resuscitation MAR Reviewed: Yes Vital Signs & Weight: Vital Signs (12 hours) Temp Pulse Resp BP BP Pulse Ox 03/24/17 12:39 87 20 100 03/24/17 12:35 93 18 100 03/24/17 11:13 98.5 F 90 16 149/80 H 96 03/24/17 09:48 88 24 H 93 L 03/24/17 09:41 78 157/87 H 03/24/17 08:14 97.2 F L 78 24 H 94 L 03/24/17 07:08 97.2 F L 78 18 131/72 100 03/24/17 04:00 97.9 F 74 20 144/84 H 100 Weight Weight 324 lb 1.6 oz I&O: 03/23/17 03/24/17 03/25/17 06:59 06:59 06:59 Intake Total 900 505 Output Total 1025 1090 Balance -125 -585 Result Diagrams: 03/23/17 05:26 03/23/17 05:26 Additional Labs: Accuchecks 03/24/17 03/23/17 10:46 20:46 POC Glucose 177 H 115 H Radiology Reviewed by me: Yes Phys Exam - Physical Examination Neck: no nodes, no JVD Respiratory: wheezing present Cardiovascular: RRR, no significant murmur, no rub Gastrointestinal: soft, non-tender Musculoskeletal: edema present Neurological: non-focal, moves all 4 limbs Psychiatric: A&O x 3 (p is Completely altered and very drowsy, consttantly asking to go home.) Dx/Plan (1) Acute respiratory failure with hypoxia and hypercapnia Code(s): J96.01 - ACUTE RESPIRATORY FAILURE WITH HYPOXIA; J96.02 - ACUTE RESPIRATORY FAILURE WITH HYPERCAPNIA Status: Acute (2) Hypertension Code(s): I10 - ESSENTIAL (PRIMARY) HYPERTENSION Status: Acute Qualifiers: Hypertension type: unspecified Qualified Code(s): I10 - Essential (primary ) hypertension (3) DM2 (diabetes mellitus, type 2) Status: Chronic Qualifiers: Diabetes mellitus complication status: with unspecified complications Diabetes mellitus snf insulin use: without termite control representative use Qualified Code( s): E11.8 - Type 2 diabetes mellitus with unspecified complications (4) Lymphedema of both lower extremities Code(s): I89.0 - LYMPHEDEMA, NOT ELSEWHERE CLASSIFIED Status: Chronic (5) Morbid obesity Code(s): E66.01 - MORBID (SEVERE) OBESITY DUE TO EXCESS CALORIES Status: Chronic (6) Acute pyelonephritis Code(s): N10 - ACUTE PYELONEPHRITIS Status: Acute - Plan cont current plan of care, continue antibiotics, PT/OT, respiratory therapy, DVT proph w/lovenox Patient is noted to have severe respoiratory acidosis from CO2 retention, continue her on Bipap intermittantly and follow pulmonary recommedations. pt has C02 retention, advised to avoid Diuretic for Metabolic alcolsis from Hco3 retention, pt start on Acetazolamide, stbale now with 3 liter nasal canula. Patient has pylenephritis, started on IV rocephin, will continue the same, pt has worsening leucocytosis, developing sepsis,. will monitor closley; No urine culture, Will order one from urine from 3 days. Echo Normal EF., will start pt on ACEI, and BB at discharge. Morbid obesidty will encourage pt excersise, will do PT/ OT evelaution. DM type2 , Well controlled on SSI and lantus, Will clsoley monitor now pt will be on Steroids. - Discharge Day Encounter end time: 12:00 Review of Systems - Review of Systems Eyes: negative: Pain, Vision Change, Conjunctivae Inflammation, Eyelid Inflammation, Redness, Other ENT: negative: Ear Pain, Ear Discharge, Nose Pain, Nose Discharge, Nose Congestion, Mouth Pain, Mouth Swelling, Throat Pain, Throat Swelling, Other Respiratory: Cough, Shortness of Breath, Wheezing. negative: Dry, Hemoptysis, SOB with Excertion, Pleuritic Pain, Sputum Cardiovascular: negative: chest pain, palpitations, orthopnea, paroxysmal nocturnal dyspnea, edema, light headedness, other Gastrointestinal: negative: Nausea, Vomiting, Abdominal Pain, Diarrhea, Constipation, Melena, Hematochezia, Other Genitourinary: negative: Dysuria, Frequency, Incontinence, Hematuria, Retention , Other Musculoskeletal: negative: Neck Pain, Shoulder Pain, Arm Pain, Back Pain, Hand Pain, Leg Pain, Foot Pain, Other Skin: negative: Rash, Lesions, Richard, Bruising, Other Neurological: negative: Weakness, Numbness, Incoordination, Change in Speech, Confusion, Seizures, Other - Medications/Allergies Allergies/Adverse Reactions: Allergies Allergy/AdvReac Type Severity Reaction Status Date / Time Opioids - Morphine Analogues Allergy Severe respiratory Verified 03/22/17 10:09 depression Medications: Current Medications Acetazolamide Sodium (Diamox) 500 mg IVP BID [facility] Last Admin: 03/24/17 09:40 Dose: 500 mg Albuterol Sulfate (Ventolin) 2.5 mg NEB Q2HR PRN PRN Reason: Wheezing Albuterol/Ipratropium (Duoneb) 3 ml NEB [id number] [facility] Last Admin: 03/24/17 12:35 Dose: 3 ml Aspirin (Aspirin Chewable) 81 mg PO DAILY [facility] Last Admin: 03/24/17 09:41 Dose: 81 mg Carvedilol (Coreg) 6.25 mg PO BID [facility] Last Admin: 03/24/17 09:41 Dose: 6.25 mg Docusate Sodium (Colace) 100 mg PO BID [facility] Last Admin: 03/24/17 09:41 Dose: 100 mg Enoxaparin Sodium (Lovenox) 40 mg SC 0900 [facility] Last Admin: 03/24/17 09:42 Dose: 40 mg Famotidine (Pepcid) 20 mg SLOW IVP Q12HR [facility] Last Admin: 03/24/17 09:41 Dose: 20 mg Ceftriaxone Sodium 1 gm/ (Syringe 0.4 ml/ Sterile Water) 10 mls @ 120 mls/hr SLOW IVP 1800 [facility] Last Admin: 03/23/17 19:26 Dose: 10 mls Insulin Detemir 10 units/ (Miscellaneous Medication) 0.1 mls @ 0 mls/hr SC HS [facility] Last Admin: 03/23/17 20:46 Dose: Not Given Lisinopril (Zestril) 2.5 mg PO DAILY [facility] Last Admin: 03/24/17 09:41 Dose: 2.5 mg Methylprednisolone Sodium Succinate (Solu-Medrol) 20 mg IVP Q8HR [facility] Last Admin: 03/24/17 14:06 Dose: 20 mg Mometasone Furoate/Formoterol Fumar (Dulera 200 Mcg/5 Mcg Inhaler) 2 puff INH BID-RT [facility] Ondansetron HCl (Zofran) 4 mg IVP Q6H PRN PRN Reason: Nausea/Vomiting Sterile Water (Water For Injection) 5 ml FS BID [facility] Last Admin: 03/24/17 09:41 Dose: 5 ml
[2017-03-24] MEDS: cefTRIAXone\\ROCEPHIN 1 GM, Syringe 0.4 ML in Sterile Water 9.6 ML SLOW IVP SCH (17:43)
[2017-03-24] MEDS: Mometasone/Formoterol 120 PUFF INHALER INH SCH (18:42)
--- NOTE | 2017-03-24 19:04 | PRG ---
DATE OF SERVICE: 03/24/2017 SUBJECTIVE: Mindy Oliveira is a 61-year-old morbidly obese female with a BMI of 57, still appears to be lethargic this morning. OBJECTIVE: VITAL SIGNS: Sats are 93% on 4 liters, respirations 24, blood pressure 150/78. CHEST: Reveals extensive anterior rhonchi and crackles. CARDIAC: Normal S1-S2. No gallops. ABDOMEN: Soft. No masses. IMPRESSION: 1. Morbid obesity with obstructive sleep apnea. 2. Bronchitis, chronic obstructive pulmonary disease. PLAN: Continue nebulizer treatments and steroids. I have added Symbicort to present regimen. We will follow.
[2017-03-24] MEDS: Insulin Detemir 100 UNITS/ML 10 UNITS in Pre-Filled Syringe SC SCH (21:24)
[2017-03-25] MEDS: Sterile Water 10 ML VIAL FS SCH ×2 (08:57→20:34)
[2017-03-25] MEDS: Docusate 100 MG CAP PO SCH ×2 (08:58→20:40)
[2017-03-25] MEDS: Enoxaparin Sodium 40 MG/0.4 ML SYRINGE SC SCH (08:58)
[2017-03-25] MEDS: Carvedilol 6.25 MG TAB PO SCH ×2 (08:58→20:34)
[2017-03-25] MEDS: Lisinopril 2.5 MG TAB PO SCH (08:58)
[2017-03-25] MEDS: acetaZOLAMIDE Sodium 500 mg Vial IVP SCH ×2 (08:58→20:34)
[2017-03-25] MEDS: Famotidine/PF 20 mg/2ml Vial SLOW IVP SCH ×2 (08:58→20:34)
--- NOTE | 2017-03-25 13:11 | PRG ---
DATE OF SERVICE: 03/25/2017 SUBJECTIVE: Ms. Oliveira says she is much better this morning. She is less short of breath, less co ughing, less wheezing. She wants to go home. She says she has help at home including and a sister who is ready to take care and take her to the doctor. This morning, neurologically, she is awake and less lethargic. OBJECTIVE: VITAL SIGNS: Blood pressure 158/80, sats are 94% on 2 liters, temperature is 97 and blood pressure 1 30/55. CHEST: Minimal wheezing. CARDIAC: Normal S1 and S2. No gallops. ABDOMEN: Soft. No masses. IMPRESSION: 1. Respiratory failure, chronic obstructive pulmonary disease. 2. Probably obstructive sleep apnea. PLAN: I switched her to some oral medication. I told her it may be best to wait till in the morning until Dr. Yao sees her. Minimize sedation and ambulate.
--- NOTE | 2017-03-25 15:03 | PDOC.PN ---
- Subjective Encounter Start Date: 03/25/17 Encounter Start Time: 10:00 Daniel is seen today, She is alert and oriented, She is persistantly saying wants to go home, Explained she was on Bipap last nigh to keep her breathing, she saysing she can go home and if she cannot breath gher will bring her back, pt is very non complaint an dthreatning to go AMA. Explained all the risk of with respiratoy failure and falls. - Objective Resuscitation Status: Resuscitation Status FULL:Full Resuscitation MAR Reviewed: Yes Vital Signs & Weight: Vital Signs (12 hours) Temp Pulse Pulse Resp BP BP BP 03/25/17 10:30 100 179/74 H 03/25/17 08:58 67 154/81 H 03/25/17 08:31 97.2 F L 67 24 H 03/25/17 07:15 97.2 F L 67 24 H 135/55 L 03/25/17 04:00 Pulse Ox Pulse Ox Pulse Ox 03/25/17 10:30 92 L 90 L 03/25/17 08:58 03/25/17 08:31 95 03/25/17 07:15 97 03/25/17 04:00 98 Weight Weight 318 lb 4.8 oz I&O: 03/24/17 03/25/17 03/26/17 06:59 06:59 06:59 Intake Total 505 240 Output Total 1090 1450 Balance -585 -1210 Result Diagrams: 03/23/17 05:26 03/23/17 05:26 Additional Labs: Accuchecks 03/25/17 03/25/17 03/24/17 10:42 06:40 21:24 POC Glucose 195 H 158 H 157 H 03/24/17 16:47 POC Glucose 134 H Radiology Reviewed by me: Yes Phys Exam - Physical Examination HEENT: PERRLA, moist MMs Neck: no nodes, no JVD Respiratory: wheezing present Cardiovascular: RRR, no significant murmur, no rub Gastrointestinal: soft, non-tender Musculoskeletal: pulses present, edema present Neurological: non-focal, normal sensation Lymphatic: no nodes Psychiatric: normal affect, A&O x 3 Skin: no rash, normal turgor Dx/Plan (1) Acute respiratory failure with hypoxia and hypercapnia Code(s): J96.01 - ACUTE RESPIRATORY FAILURE WITH HYPOXIA; J96.02 - ACUTE RESPIRATORY FAILURE WITH HYPERCAPNIA Status: Acute (2) Hypertension Code(s): I10 - ESSENTIAL (PRIMARY) HYPERTENSION Status: Acute Qualifiers: Hypertension type: unspecified Qualified Code(s): I10 - Essential (primary ) hypertension (3) DM2 (diabetes mellitus, type 2) Status: Chronic Qualifiers: Diabetes mellitus complication status: with unspecified complications Diabetes mellitus intermediate project manager insulin use: without intermediate project manager use Qualified Code( s): E11.8 - Type 2 diabetes mellitus with unspecified complications (4) Lymphedema of both lower extremities Code(s): I89.0 - LYMPHEDEMA, NOT ELSEWHERE CLASSIFIED Status: Chronic (5) Morbid obesity Code(s): E66.01 - MORBID (SEVERE) OBESITY DUE TO EXCESS CALORIES Status: Chronic (6) Acute pyelonephritis Code(s): N10 - ACUTE PYELONEPHRITIS Status: Acute - Plan cont current plan of care, continue antibiotics, respiratory therapy, incentive spirometry, out of bed/ambulate, DVT proph w/lovenox * . Patient is noted to have severe respoiratory acidosis from CO2 retention, continue her on Bipap intermittantly and follow pulmonary recommedations. pt has C02 retention, advised to avoid Diuretic for Metabolic alcolsis from Hco3 retention, pt start on Acetazolamide, stbale now with 3 liter nasal canula. Will continue to Monitor with PRN Bipap. Patient has pylenephritis, on IV rocephin, will continue the same, pt has worsening leucocytosis, developing sepsis,. will monitor closley; No urine culture, Will order one from urine from 3 days. Echo Normal EF., will start pt on ACEI, and BB at discharge. Morbid obesidty will encourage pt excersise, will do PT/ OT evelaution. DM type2 , Well controlled on SSI and lantus, Will clsoley monitor now pt will be on Steroids. Plan discharge when pt is off of BIPAP, pt high risk readmission due to poor compliance. She will need outpatient Sleep study. - Discharge Day Encounter end time: 10:45 Review of Systems - Review of Systems Constitutional: weakness Eyes: negative: Pain, Vision Change, Conjunctivae Inflammation, Eyelid Inflammation, Redness, Other ENT: negative: Ear Pain, Ear Discharge, Nose Pain, Nose Discharge, Nose Congestion, Mouth Pain, Mouth Swelling, Throat Pain, Throat Swelling, Other Respiratory: Cough, Shortness of Breath, SOB with Excertion, Wheezing Cardiovascular: negative: chest pain, palpitations, orthopnea, paroxysmal nocturnal dyspnea, edema, light headedness, other Gastrointestinal: negative: Nausea, Vomiting, Abdominal Pain, Diarrhea, Constipation, Melena, Hematochezia, Other Genitourinary: negative: Dysuria, Frequency, Incontinence, Hematuria, Retention , Other Musculoskeletal: negative: Neck Pain, Shoulder Pain, Arm Pain, Back Pain, Hand Pain, Leg Pain, Foot Pain, Other Skin: negative: Rash, Lesions, Richard, Bruising, Other Neurological: negative: Weakness, Numbness, Incoordination, Change in Speech, Confusion, Seizures, Other - Medications/Allergies Allergies/Adverse Reactions: Allergies Allergy/AdvReac Type Severity Reaction Status Date / Time Opioids - Morphine Analogues Allergy Severe respiratory Verified 03/22/17 10:09 depression Medications: Current Medications Acetazolamide Sodium (Diamox) 500 mg IVP BID [facility] Last Admin: 03/25/17 08:58 Dose: 500 mg Albuterol Sulfate (Ventolin) 2.5 mg NEB Q2HR PRN PRN Reason: Wheezing Albuterol/Ipratropium (Duoneb) 3 ml NEB [id number] [facility] Last Admin: 03/25/17 02:47 Dose: 3 ml Aspirin (Aspirin Chewable) 81 mg PO DAILY [facility] Last Admin: 03/25/17 08:58 Dose: 81 mg Carvedilol (Coreg) 6.25 mg PO BID [facility] Last Admin: 03/25/17 08:58 Dose: 6.25 mg Cefdinir (Omnicef) 300 mg PO BID [facility] Docusate Sodium (Colace) 100 mg PO BID [facility] Last Admin: 03/25/17 08:58 Dose: Not Given Enoxaparin Sodium (Lovenox) 40 mg SC 0900 [facility] Last Admin: 03/25/17 08:58 Dose: 40 mg Famotidine (Pepcid) 20 mg SLOW IVP Q12HR [facility] Last Admin: 03/25/17 08:58 Dose: 20 mg Insulin Detemir 10 units/ (Miscellaneous Medication) 0.1 mls @ 0 mls/hr SC HS [facility] Last Admin: 03/24/17 21:24 Dose: Not Given Lisinopril (Zestril) 2.5 mg PO DAILY [facility] Last Admin: 03/25/17 08:58 Dose: 2.5 mg Mometasone Furoate/Formoterol Fumar (Dulera 200 Mcg/5 Mcg Inhaler) 2 puff INH BID-RT [facility] Last Admin: 03/24/17 18:42 Dose: Not Given Ondansetron HCl (Zofran) 4 mg IVP Q6H PRN PRN Reason: Nausea/Vomiting Prednisone (Prednisone) 20 mg PO QAM-[facility] Sterile Water (Water For Injection) 5 ml FS BID [facility] Last Admin: 03/25/17 08:57 Dose: 5 ml
[2017-03-25] MEDS: Mometasone/Formoterol 120 PUFF INHALER INH SCH ×2 (16:14→19:09)
[2017-03-25] MEDS: Cefdinir 300 MG CAP PO SCH (20:40)
[2017-03-25] MEDS: Insulin Detemir 100 UNITS/ML 10 UNITS in Pre-Filled Syringe SC SCH (20:41)
[2017-03-26] MEDS: Mometasone/Formoterol 120 PUFF INHALER INH SCH ×2 (08:41→19:27)
--- NOTE | 2017-03-26 08:46 | PDOC.PULPN ---
Progress Note: Subj/Obj - Subjective Date: 03/26/17 Time: 08:44 - Objective Allergies/Adverse Reactions: Allergies Allergy/AdvReac Type Severity Reaction Status Date / Time Opioids - Morphine Analogues Allergy Severe respiratory Verified 03/22/17 10:09 depression Medications: Current Medications Acetazolamide Sodium (Diamox) 500 mg IVP BID [facility] Last Admin: 03/25/17 20:34 Dose: 500 mg Albuterol Sulfate (Ventolin) 2.5 mg NEB Q2HR PRN PRN Reason: Wheezing Albuterol/Ipratropium (Duoneb) 3 ml NEB [id number] [facility] Last Admin: 03/26/17 08:06 Dose: 3 ml Aspirin (Aspirin Chewable) 81 mg PO DAILY [facility] Last Admin: 03/25/17 08:58 Dose: 81 mg Carvedilol (Coreg) 6.25 mg PO BID [facility] Last Admin: 03/25/17 20:34 Dose: 6.25 mg Cefdinir (Omnicef) 300 mg PO BID [facility] Last Admin: 03/25/17 20:40 Dose: Not Given Docusate Sodium (Colace) 100 mg PO BID [facility] Last Admin: 03/25/17 20:40 Dose: Not Given Enoxaparin Sodium (Lovenox) 40 mg SC 0900 [facility] Last Admin: 03/25/17 08:58 Dose: 40 mg Famotidine (Pepcid) 20 mg SLOW IVP Q12HR [facility] Last Admin: 03/25/17 20:34 Dose: 20 mg Insulin Detemir 10 units/ (Miscellaneous Medication) 0.1 mls @ 0 mls/hr SC HS [facility] Last Admin: 03/25/17 20:41 Dose: Not Given Lisinopril (Zestril) 2.5 mg PO DAILY [facility] Last Admin: 03/25/17 08:58 Dose: 2.5 mg Mometasone Furoate/Formoterol Fumar (Dulera 200 Mcg/5 Mcg Inhaler) 2 puff INH BID-RT [facility] Last Admin: 03/26/17 08:41 Dose: 2 puff Ondansetron HCl (Zofran) 4 mg IVP Q6H PRN PRN Reason: Nausea/Vomiting Prednisone (Prednisone) 20 mg PO QAM-WM [facility] Sterile Water (Water For Injection) 5 ml FS BID [facility] Last Admin: 03/25/17 20:34 Dose: 5 ml MAR Reviewed: Yes Vital Signs: Vital Signs Temp 97.9 F 03/26/17 07:27 Pulse 88 03/26/17 08:06 Resp 22 H 03/26/17 08:06 BP 155/86 H 03/26/17 07:27 Pulse Ox 94 L 03/26/17 08:09 Intake & Output 03/25/17 03/26/17 03/26/17 18:59 06:59 18:59 Intake Total 960 Output Total 900 850 Balance -900 110 Weight 315 lb Intake: Oral 960 Output: Urine 850 Output, Hunter 900 Other: Voiding Method Indwelling Catheter Indwelling Catheter # Bowel Movements 1 Progress Note: Exam - Physical Exam Constitutional: NAD HEENT: PERRLA, sclera anicteric Neck: no nodes, no JVD Cardiovascular: RRR Respiratory: clear to auscultation bilaterally Gastrointestinal: soft, non-tender Musculoskeletal: no edema Neurological: non-focal Psychiatric: normal affect, A&O x 3 Skin: no rash - Labs Result Diagrams: 03/23/17 05:26 03/23/17 05:26 Lab results: Laboratory Results - last 24 hr 03/25/17 03/25/17 03/25/17 10:42 16:27 20:33 POC Glucose 195 H 138 H 118 H 03/26/17 05:50 POC Glucose 115 H Progress Note: A/P - Problems (1) WALTER (obstructive sleep apnea) Current Visit: Yes Status: Acute Code(s): G47.33 - OBSTRUCTIVE SLEEP APNEA ( ADULT) (PEDIATRIC) (2) Chronic hypercapnic respiratory failure Current Visit: No Status: Acute Code(s): J96.12 - CHRONIC RESPIRATORY FAILURE WITH HYPERCAPNIA - Plan Plan: Transfer to medical Bipap at night for WALTER Uninsured. She needs Bipap at home, but cannot get funded for sleep study Increase activity as tolerated.
[2017-03-26] MEDS: Enoxaparin Sodium 40 MG/0.4 ML SYRINGE SC SCH (09:07)
[2017-03-26] MEDS: Famotidine/PF 20 mg/2ml Vial SLOW IVP SCH ×2 (09:08→22:00)
[2017-03-26] MEDS: Cefdinir 300 MG CAP PO SCH ×2 (09:09→21:08)
[2017-03-26] MEDS: Docusate 100 MG CAP PO SCH ×2 (09:09→21:08)
[2017-03-26] MEDS: Lisinopril 2.5 MG TAB PO SCH (09:09)
[2017-03-26] MEDS: Carvedilol 6.25 MG TAB PO SCH ×2 (09:10→21:08)
[2017-03-26] MEDS: acetaZOLAMIDE Sodium 500 mg Vial IVP SCH ×2 (09:15→23:35)
[2017-03-26] MEDS: predniSONE 20 MG TAB PO SCH (09:15)
[2017-03-26] MEDS: Sterile Water 10 ML VIAL FS SCH ×2 (09:15→22:57)
[2017-03-26 11:12] LABS: #Eosinphils 0.1 thou/uL (0.0-0.7); #Lymphocytes 2.5 thou/uL (1.20-3.40); #Neutrophils 6.6 thou/uL (1.40-6.50); %Basophils 0.2 % (0.0-1.0); %Eosinophils 1.1 % (0.0-10.0); %Lymphocytes 24.3 % (21.0-51.0); %Monocytes 9.7 % (0.0-10.0); %Neutrophils 64.7 % (42.0-75.0); Hemoglobin 11.7 g/dL (12.0-16.0); Mean Corpuscular HGB CONC 28.2 g/dL (32.0-36.0); Mean Corpuscular Hemoglobin 25.1 pg (27.0-31.0); Mean Platelet Volume 8.4 fL (7.4-10.4); Platelet Count 348 thou/uL (130-400); RBC Distribution Width 18.7 % (11.5-14.5); Red Blood Cell (RBC) Count 4.65 mill/uL (4.20-5.40); White Blood Cell (WBC) Count 10.3 thou/uL (4.8-10.8)
[2017-03-26 11:23] LABS: Anion Gap 9 mmol/L (10-20); BUN (Urea Nitrogen) 20 mg/dL (7.0-18.7); Calc. Creatinine Clearance 219 mL/min (70-130); Calcium 9.1 mg/dL (7.8-10.44); Carbon Dioxide 37 mmol/L (22-29); Chloride 101 mmol/L (98-107); Estimated GFR-MDRD 89; Glucose 123 mg/dL (70-105); Potassium 3.5 mmol/L (3.5-5.1); Sodium 143 mmol/L (136-145)
--- NOTE | 2017-03-26 12:57 | PDOC.PN ---
- Subjective Encounter Start Date: 03/26/17 Encounter Start Time: 10:15 Patient is seeen today, discussed in lenght abnout staying other night on the floor, She is still needing Bipap at night and without a sleep study cannot be ordered Bipap per pulmonary, pt is high risk for readmission. Pt will spend one night on medical floor without bipap and see if she is going to tolerate on nasal canula, sitting on recliner at night until she get her disability from medicare. - Objective Resuscitation Status: Resuscitation Status FULL:Full Resuscitation MAR Reviewed: Yes Vital Signs & Weight: Vital Signs (12 hours) Temp Pulse Resp BP BP Pulse Ox 03/26/17 11:54 98.6 F 77 20 151/68 H 94 L 03/26/17 11:37 75 20 96 03/26/17 09:10 165/70 H 03/26/17 09:09 88 155/86 H 03/26/17 08:09 94 L 03/26/17 08:06 88 22 H 94 L 03/26/17 08:00 97.9 F 84 22 H 98 03/26/17 07:27 97.9 F 84 20 155/86 H 98 03/26/17 05:23 99 03/26/17 04:24 79 18 98 03/26/17 04:20 76 21 H 99 03/26/17 04:00 83 22 H 97 03/26/17 02:00 97 20 96 03/26/17 01:32 92 20 96 Weight Weight 315 lb I&O: 03/25/17 03/26/17 03/27/17 06:59 06:59 06:59 Intake Total 240 960 Output Total 1450 1750 Balance -1210 -790 Result Diagrams: 03/26/17 10:55 03/26/17 10:55 Additional Labs: Accuchecks 03/26/17 03/26/17 03/25/17 10:34 05:50 20:33 POC Glucose 153 H 115 H 118 H 03/25/17 16:27 POC Glucose 138 H Radiology Reviewed by me: Yes (Katherin,) Phys Exam - Physical Examination HEENT: PERRLA, moist MMs Neck: no nodes, no JVD Respiratory: wheezing present Cardiovascular: RRR, no significant murmur, no rub Gastrointestinal: soft, non-tender Musculoskeletal: pulses present, edema present Neurological: non-focal, normal sensation Lymphatic: no nodes Psychiatric: normal affect, A&O x 3 Dx/Plan (1) Acute respiratory failure with hypoxia and hypercapnia Code(s): J96.01 - ACUTE RESPIRATORY FAILURE WITH HYPOXIA; J96.02 - ACUTE RESPIRATORY FAILURE WITH HYPERCAPNIA Status: Acute (2) Hypertension Code(s): I10 - ESSENTIAL (PRIMARY) HYPERTENSION Status: Acute Qualifiers: Hypertension type: unspecified Qualified Code(s): I10 - Essential (primary ) hypertension (3) DM2 (diabetes mellitus, type 2) Status: Chronic Qualifiers: Diabetes mellitus complication status: with unspecified complications Diabetes mellitus assisted insulin use: without assisted use Qualified Code( s): E11.8 - Type 2 diabetes mellitus with unspecified complications (4) Lymphedema of both lower extremities Code(s): I89.0 - LYMPHEDEMA, NOT ELSEWHERE CLASSIFIED Status: Chronic (5) Morbid obesity Code(s): E66.01 - MORBID (SEVERE) OBESITY DUE TO EXCESS CALORIES Status: Chronic (6) Acute pyelonephritis Code(s): N10 - ACUTE PYELONEPHRITIS Status: Acute - Plan cont current plan of care, plan discussed w/ family, continue antibiotics, PT/OT , pediatric social worker, out of bed/ambulate, DVT proph w/lovenox * . Patient is noted to have severe respoiratory acidosis from CO2 retention, continue her on Bipap intermittantly and follow pulmonary recommedations. pt has C02 retention, advised to avoid Diuretic for Metabolic alcolsis from Hco3 retention, pt start on Acetazolamide, stbale now with 3 liter nasal canula. Will continue to Monitor with PRN Bipap. Patient has pylenephritis, on IV rocephin, will continue the same, pt has worsening leucocytosis, developing sepsis,. will monitor closley; No urine culture, Will order one from urine from 3 days. Echo Normal EF., will start pt on ACEI, and BB at discharge. Morbid obesidty will encourage pt excersise, will do PT/ OT evelaution. DM type2 , Well controlled on SSI and lantus, Will clsoley monitor now pt will be on Steroids. Plan discharge when pt tomorrow if she tolerates without Bipap. - Discharge Day Encounter end time: 10:45 Review of Systems - Review of Systems Constitutional: negative: fever, chills, sweats, weakness, malaise, other Eyes: negative: Pain, Vision Change, Conjunctivae Inflammation, Eyelid Inflammation, Redness, Other ENT: negative: Ear Pain, Ear Discharge, Nose Pain, Nose Discharge, Nose Congestion, Mouth Pain, Mouth Swelling, Throat Pain, Throat Swelling, Other Respiratory: Cough, Shortness of Breath, SOB with Excertion. negative: Dry, Hemoptysis, Pleuritic Pain, Sputum, Wheezing Cardiovascular: negative: chest pain, palpitations, orthopnea, paroxysmal nocturnal dyspnea, edema, light headedness, other Gastrointestinal: negative: Nausea, Vomiting, Abdominal Pain, Diarrhea, Constipation, Melena, Hematochezia, Other Genitourinary: negative: Dysuria, Frequency, Incontinence, Hematuria, Retention , Other Musculoskeletal: negative: Neck Pain, Shoulder Pain, Arm Pain, Back Pain, Hand Pain, Leg Pain, Foot Pain, Other Skin: negative: Rash, Lesions, Richard, Bruising, Other Neurological: negative: Weakness, Numbness, Incoordination, Change in Speech, Confusion, Seizures, Other - Medications/Allergies Allergies/Adverse Reactions: Allergies Allergy/AdvReac Type Severity Reaction Status Date / Time Opioids - Morphine Analogues Allergy Severe respiratory Verified 03/22/17 10:09 depression Medications: Current Medications Acetazolamide Sodium (Diamox) 500 mg IVP BID [facility] Last Admin: 03/26/17 09:15 Dose: 500 mg Albuterol Sulfate (Ventolin) 2.5 mg NEB Q2HR PRN PRN Reason: Wheezing Albuterol/Ipratropium (Duoneb) 3 ml NEB [id number] [facility] Last Admin: 03/26/17 11:37 Dose: 3 ml Aspirin (Aspirin Chewable) 81 mg PO DAILY [facility] Last Admin: 03/26/17 09:09 Dose: 81 mg Carvedilol (Coreg) 6.25 mg PO BID [facility] Last Admin: 03/26/17 09:10 Dose: 6.25 mg Cefdinir (Omnicef) 300 mg PO BID [facility] Last Admin: 03/26/17 09:09 Dose: 300 mg Docusate Sodium (Colace) 100 mg PO BID [facility] Last Admin: 03/26/17 09:09 Dose: Not Given Enoxaparin Sodium (Lovenox) 40 mg SC 09 [facility] Last Admin: 03/26/17 09:07 Dose: 40 mg Famotidine (Pepcid) 20 mg SLOW IVP Q12HR [facility] Last Admin: 03/26/17 09:08 Dose: 20 mg Insulin Detemir 10 units/ (Miscellaneous Medication) 0.1 mls @ 0 mls/hr SC HS [facility] Last Admin: 03/25/17 20:41 Dose: Not Given Lisinopril (Zestril) 2.5 mg PO DAILY [facility] Last Admin: 03/26/17 09:09 Dose: 2.5 mg Mometasone Furoate/Formoterol Fumar (Dulera 200 Mcg/5 Mcg Inhaler) 2 puff INH BID-RT [facility] Last Admin: 03/26/17 08:41 Dose: 2 puff Ondansetron HCl (Zofran) 4 mg IVP Q6H PRN PRN Reason: Nausea/Vomiting Prednisone (Prednisone) 20 mg PO QAM-WM [facility] Last Admin: 03/26/17 09:15 Dose: Not Given Sterile Water (Water For Injection) 5 ml FS BID [facility] Last Admin: 03/26/17 09:15 Dose: 5 ml
[2017-03-26] MEDS: Insulin Detemir 100 UNITS/ML 10 UNITS in Pre-Filled Syringe SC SCH (22:56)
[2017-03-27] MEDS: Mometasone/Formoterol 120 PUFF INHALER INH SCH (06:33)
[2017-03-27] MEDS: Famotidine/PF 20 mg/2ml Vial SLOW IVP SCH (08:45)
[2017-03-27] MEDS: acetaZOLAMIDE Sodium 500 mg Vial IVP SCH (08:45)
[2017-03-27] MEDS: Cefdinir 300 MG CAP PO SCH (08:45)
[2017-03-27] MEDS: Enoxaparin Sodium 40 MG/0.4 ML SYRINGE SC SCH (08:45)
[2017-03-27] MEDS: Lisinopril 2.5 MG TAB PO SCH (08:46)
[2017-03-27] MEDS: Carvedilol 6.25 MG TAB PO SCH (08:46)
[2017-03-27] MEDS: Sterile Water 10 ML VIAL FS SCH (08:47)
[2017-03-27] MEDS: Docusate 100 MG CAP PO SCH (08:50)
[2017-03-27] MEDS: predniSONE 20 MG TAB PO SCH (08:50)
--- NOTE | 2017-03-27 10:54 | PRG ---
DATE OF SERVICE: 03/27/2017 SUBJECTIVE: She feels good. She was kept on the BiPAP last night, and has been off this morning. S he is perfectly awake and oriented. OBJECTIVE: VITAL SIGNS: Temperature 98.9, pulse 87, blood pressure 144/84, O2 sat 96% on 3 liters. HEENT: Unremarkable. NECK: No JVD. CHEST: Fairly clear. CARDIAC: S1 and S2 regular. ABDOMEN: Soft. EXTREMITIES: No edema. There were no labs done today. ASSESSMENT: 1. The patient has obesity hypoventilation syndrome/sleep apnea. 2. Chronic hypercapnic respiratory failure. PLAN: Ideally, she would need a BiPAP machine at home; however, she has no insurance. I think that she has gone about as far as she can in the hospital and is probably ready for discharge, assuming th at we can get a BiPAP at home. She should probably be sent home on doses acetazolamide - I would say 250 mg twice a day orally. Without the BiPAP, her prognosis is poor.
[2017-03-27] MEDS ORDERED: Ibuprofen 200 MG TAB PO SCH ×2 (14:15→18:00)
[2017-03-27 16:52] VITALS: BP 168/98; TEMP 98.7
[2017-03-27] MEDS ORDERED: AcetaZOLAMIDE 250 MG TAB PO SCH (21:00)
--- NOTE | 2017-03-28 06:02 | DIS ---
DATE OF ADMISSION: 03/20/2017 DATE OF DISCHARGE: 03/27/2017 CONDITION AT THE TIME OF DISCHARGE: Stable and improved. PRIMARY CARE PHYSICIAN: None. DISCHARGE DIAGNOSES: 1. Acute on chronic respiratory failure secondary to obesity hypoventilation syndrome and sleep apne a. 2. Acute diastolic congestive heart failure. 3. Morbid obesity. 4. Diabetes mellitus type 2. 5. Hypertension. 6. Chronic lymphedema of lower extremities. 7. Urinary tract infection. DISCHARGE MEDICATIONS: Include Neurontin 400 mg p.o. t.i.d., Medrol Dosepak, lisinopril 20 mg p.o. b .i.d., Omnicef 300 mg p.o. b.i.d. for 5 more days, Coreg 25 mg p.o. b.i.d., and Diamox 250 mg p.o. b. i.d. PROCEDURES DONE IN THE HOSPITAL: Include: 1. Transthoracic echocardiogram, which shows EF of 55% to 60% with mild paradoxical septal motion co mpatible with right heart overload. Pulmonary arterial systolic pressure was approximately 40 mmHg. IVC dilatation is noticed. 2. Chest x-ray upon presentation, which showed mild cardiomegaly, but no acute cardiopulmonary proce ss. CONSULTATIONS: Pulmonary Medicine doctors, Dr. Yao and Dr. Thorpe. HISTORY OF PRESENTING ILLNESS: Ms. Oliveira is a 51-year-old female with past medical hist ory of hypertension, questionable congestive heart failure with recent diabetic toe infection, status post amputation in 12/2016, who presented to the hospital with complaints of shortness of breath. U paul presentation, she received Lasix in the emergency room for hypoxia and question of fluid overload . She was admitted with a presumptive diagnosis of acute CHF, likely diastolic in nature and was sta rted on IV diuresis. Please see admission history and physical for further details. HOSPITAL COURSE: The patient was admitted initially to [facility] on BiPAP and Pulmonary Medicine was cons ulted. Dr. Yao saw the patient, who knows her from previous admission. He recommended that she has obesity hypoventilation syndrome and resultant acute on chronic hypercapnic respiratory failure. were switched to acetazolamide, which were continued throughout the rest of her hospitalizatio n to prevent metabolic alkalosis. BiPAP as needed was continued and the patient was eventually trans ferred out of [facility] to medical bed. Eventually, the patient was weaned off oxygen by nasal cannula in the daytime, but she did require Bi PAP at night time. Eventually, she was on room air in the morning. Due to her uninsured status: BiPAP was unable to be obtained for her on discharge. The patient does sees [facility] and is requested to go back to them for possible outpatient sleep study. She has a pplied for disability and hopefully when she procures that: She might be able to undergo sleep study and CPAP or BiPAP at home. Without that the patient's long-term prognosis is quite poor. At this t critical access hospital, she is instructed to sleep in a recliner. She is in the process of getting nocturnal pulse oxim etry for home and this will be monitored by her overnight. She was seen and examined on the day of discharge and is eager to go home. She has been cleared by [facility] for discharge as well. PHYSICAL EXAMINATION: Her physical examination this morning includes: VITAL SIGNS: Temperature 98.7, pulse of 82, respirations 14, saturating 99% on room air, and blood p ressure 168/98. GENERAL: No acute distress, sitting up on the side of the bed, awake, alert, and oriented x3. CHEST: Clear to auscultation with few rhonchi, but no wheezes. Rate and rhythm is regular. NEUROLOGIC: Neurological examination is nonfocal. EXTREMITIES: No lower extremity edema. LABORATORY EXAMINATION: Blood sugar is 118. Urine culture is negative at 48 hours. Influenza swab done on presentation is negative. FOLLOWUP: She will follow up with her primary care physician and if possible Pulmonary Medicine as a n outpatient with outpatient sleep study.
== END 2017-03-27 18:30 | disposition home or self-care (01) | DRG 189 ==
LOC: ERS 11:30 → ERHOLD 15:35 → T4-B 22:35 → IMCU/EMU 03-21 13:58 → T4-B 03-26 15:48
PROVIDERS: ADMIT Family Medicine; ATTEND Family Medicine
PROC: 5A09557 Assistance with Respiratory Ventilation, Greater than 96 Consecutive Hours, Continuous Positive Airway Pressure (ICD-10-PCS; principal; 2017-03-23)
DX: J96.21 Acute and chronic respiratory failure with hypoxia (principal); I50.31 Acute diastolic (congestive) heart failure; I24.8 Other forms of acute ischemic heart disease; E66.2 Morbid (severe) obesity with alveolar hypoventilation; Z68.43 Body mass index [BMI] 50.0-59.9, adult; J44.9 Chronic obstructive pulmonary disease, unspecified; N10 Acute pyelonephritis; N39.0 Urinary tract infection, site not specified; I11.0 Hypertensive heart disease with heart failure; I89.0 Lymphedema, not elsewhere classified; J96.02 Acute respiratory failure with hypercapnia; F17.210 Nicotine dependence, cigarettes, uncomplicated; Z89.421 Acquired absence of other right toe(s); Z82.49 Family history of ischemic heart disease and other diseases of the circulatory system; Z83.3 Family history of diabetes mellitus; Z82.3 Family history of stroke
CPT/HCPCS: 36415; 36416; 51701; 71045; 80048; 80053; 80076; 81003; 81015; 82550; 82553; 82805; 83036; 83690; 83880; 84484; 85025; 87086; 93005; 93010; 93306; 93798; 94640; 94660; 94760; 96374; 96375; A4216; A4353; G8978-GP-CM; G8979-GP-CI; G8987-GO-CL; G8987-GO-CM; G8988-GO-CJ; J0696; J1120; J1650; J1815; J1940; J1956; J2920; J7506; J7620; S0028

== ENCOUNTER 2018-02-04 12:47 | Outpatient (CLI) | payer OTHER ==
[2018-02-04 13:45] LABS: #Basophils 0.1 thou/uL (0.0-0.2); #Eosinphils 0.1 thou/uL (0.0-0.7); #Lymphocytes 2.2 thou/uL (1.20-3.40); #Monocytes 0.6 thou/uL (0.11-0.59); #Neutrophils 5.8 thou/uL (1.40-6.50); %Eosinophils 0.9 % (0.0-10.0); %Lymphocytes 25.5 % (21.0-51.0); %Monocytes 7.1 % (0.0-10.0); %Neutrophils 65.5 % (42.0-75.0); Hemoglobin 15.3 g/dL (12.0-16.0); Mean Corpuscular HGB CONC 32.5 g/dL (32.0-36.0); Mean Corpuscular Hemoglobin 29.8 pg (27.0-31.0); Mean Corpuscular Volume 91.7 fL (78.0-98.0); Mean Platelet Volume 8.6 fL (7.4-10.4); Platelet Count 293 thou/uL (130-400); RBC Distribution Width 13.7 % (11.5-14.5); Red Blood Cell (RBC) Count 5.12 mill/uL (4.20-5.40); White Blood Cell (WBC) Count 8.8 thou/uL (4.8-10.8)
[2018-02-04 13:57] LABS: ALT (SGPT) 15 U/L (8-55); AST (SGOT) 12 U/L (5-34); Albumin 3.6 g/dL (3.5-5.0); Alkaline Phosphatase 116 U/L (40-150); Anion Gap 9 mmol/L (10-20); BUN (Urea Nitrogen) 16 mg/dL (7.0-18.7); Calc. Creatinine Clearance 0 mL/min (70-130); Calcium 9.6 mg/dL (7.8-10.44); Carbon Dioxide 30 mmol/L (22-29); Chloride 105 mmol/L (98-107); Estimated GFR-MDRD 84; Globulin 3.5 g/dL (2.4-3.5); Glucose 97 mg/dL (70-105); Potassium 4.7 mmol/L (3.5-5.1); Protein, Total 7.1 g/dL (6.0-8.3); Sodium 139 mmol/L (136-145)
--- NOTE | 2018-02-04 19:30 | EKG ---
Test Reason : Blood Pressure : / mmHG Vent. Rate : 061 BPM Atrial Rate : 061 BPM P-R Int : 164 ms QRS Dur : 090 ms QT Int : 444 ms P-R-T Axes : 022 071 053 degrees QTc Int : 446 ms Normal sinus rhythm Normal ECG When compared with ECG of 21-MAR-2017 13:06, Vent. rate has decreased BY 42 BPM Nonspecific T wave abnormality no longer evident in Inferior leads Confirmed by TERRELL HARRELL, . SMadonna (4) on 02/04/2018 7:30:17 PM Referred By: FAUSTINA Confirmed By:DR. Bryan TEJADA MD
== END 2018-02-04 12:48 | disposition home or self-care (01) ==
LOC: LABBT 12:47
PROVIDERS: ATTEND Surgery
DX: Z01.818 Encounter for other preprocedural examination (principal); K43.9 Ventral hernia without obstruction or gangrene
CPT/HCPCS: 80053; 85025; 93005; 93010

== ENCOUNTER 2018-02-07 06:01 | Day surgery (SDC) | payer OTHER ==
[2018-02-04 13:06] VITALS: BMI 44.2
[2018-02-07] MEDS ORDERED: CEFAZOLIN 2 GM/50 ML BAG ONE (07:48)
[2018-02-07] MEDS ORDERED: Lidocaine 2% Jelly 5 ML TUBE ONE (08:32)
[2018-02-07] MEDS ORDERED: Midazolam HCl 2 mg/2 ml Vial ONE (08:32)
[2018-02-07] MEDS ORDERED: Fentanyl 100 MCG/2 ML VIAL ONE ×4 (08:32→11:16)
[2018-02-07] MEDS ORDERED: Bupivacaine/Epinephrine 0.25% 30 ML VIAL ONE (08:36)
[2018-02-07] MEDS ORDERED: Albuterol Sulfate HFA (OR ONLY) ONE (09:02)
[2018-02-07] MEDS ORDERED: ePHEDrine/0.9% NaCl/PF SYRINGE 50 mg/10 ml ONE (11:20)
[2018-02-07] MEDS ORDERED: Lidocaine 1% PF 5 ML VIAL ONE (11:20)
[2018-02-07] MEDS ORDERED: PROPOFOL 200 MG/20 ML VIAL ONE (11:20)
[2018-02-07] MEDS ORDERED: Glycopyrrolate 0.2 MG/ML 5 ML SYRINGE ONE (11:20)
[2018-02-07] MEDS ORDERED: PROVENTIL INHALER 6.7 G (200 INHALATIONS) ONE (11:20)
[2018-02-07] MEDS ORDERED: Dexamethasone 20 MG/5 ML VIAL ONE (11:20)
[2018-02-07] MEDS ORDERED: Ondansetron PF 4 MG/2 ML Vial ONE (11:20)
[2018-02-07] MEDS ORDERED: Morphine 2 MG/ML SYRINGE ONE (12:47)
[2018-02-07] MEDS ORDERED: HYDROcodone/Acetaminophen 5/325 mg Tablet ONE (13:53)
--- NOTE | 2018-02-07 23:01 | OP ---
DATE OF PROCEDURE: 02/07/2018 PREOPERATIVE DIAGNOSIS: Ventral hernia. PROCEDURE PERFORMED: Laparoscopic ventral hernia repair with mesh. INDICATIONS FOR PROCEDURE: A 52-year-old female with painful and chronically incarcerated ventral hernia. FINDINGS: A quite bit of omental fat within the hernia sac. The actual defect was only about 2.5 cm. DESCRIPTION OF PROCEDURE: After informed consent was obtained, the patient was taken to the operating room and given general endotracheal anesthesia, placed in the supine position, right side was slightly elevated, prepped and draped in usual fashion. Local anesthesia was infiltrated subcutaneously and deep. A 12-mm incision was performed in right flank. Veress needle was inserted, drop test performed, pneumoperitoneum was created to a volume of 2 L of carbon dioxide. Utilizing a bladeless 12-mm trocar and zero-degree laparoscope, Direct visual entry into the abdominal cavity was performed. Pneumoperitoneum was carried to a pressure of 15 mmHg and two 5-mm ports were placed, right upper and right lower quadrant. There was omental fat that was prolapsing through the defect anteriorly, it was fairly well incarcerated. The edge of it was opened circumferentially with the LigaSure and was able to get quite of bit reduced and then had a separation of this adipose. There was then remaining fairly significant amount of adipose in the subcu that had to be dissected out. Eventually got it all cleaned out. This defect is probably about 1.5 to 2 cm in diameter. The defect was closed with a running 0 V-Loc suture transversely, then this devascularized adipose tissue was placed in Endosac and removed from the abdomen through the 12 mm site. Then, a 15 x 15 cm round Proceed mesh was prepared, 0 Vicryls were placed in 4 quadrants. It was hydrated, rolled, and inserted intraabdominally. The pressure was deflated to 12 mmHg. The sutures were individually grasped with a GraNee needle to optimally position the mesh to cover the defect. Then, it was further secured to the abdominal wall with the SecureStrap tacker. Hemostasis was assured and the main 12-mm port was removed and closed under direct vision with 0 Vicryl and the GraNee needle. The abdomen decompressed and the skin closed with interrupted 4-0 Rapide. Dermabond applied. Bandage applied. The patient tolerated the procedure well and transferred to Recovery in good condition. Sponge and needle count verified correct x2. Job ID: [id number]
== END 2018-02-07 14:10 | disposition home or self-care (01) ==
LOC: SDC 06:01
PROVIDERS: ATTEND Surgery
PROC: 0WUF4JZ Supplement Abdominal Wall with Synthetic Substitute, Percutaneous Endoscopic Approach (ICD-10-PCS; principal; 2018-02-07)
DX: K43.6 Other and unspecified ventral hernia with obstruction, without gangrene (principal); Z87.891 Personal history of nicotine dependence; Z88.8 Allergy status to other drugs, medicaments and biological substances
CPT/HCPCS: 96374; J1100; J2001; J2250; J2270; J2405; J2704; J3010

== ENCOUNTER 2018-04-07 19:30 | Outpatient (CLI) | payer OTHER | END 2018-04-07 19:31 | disposition home or self-care (01) | LOC: SLEEPLAB 19:30 | PROVIDERS: ATTEND Nurse Practitioner Family | DX: G47.33 Obstructive sleep apnea (adult) (pediatric) (principal); G47.30 Sleep apnea, unspecified; I11.0 Hypertensive heart disease with heart failure; I50.9 Heart failure, unspecified; G47.00 Insomnia, unspecified; G47.10 Hypersomnia, unspecified; R06.83 Snoring; R09.02 Hypoxemia; Z68.42 Body mass index [BMI] 45.0-49.9, adult | CPT/HCPCS: 95811 ==

== ENCOUNTER 2020-11-26 19:30 | Outpatient (CLI) | payer OTHER | END 2020-11-26 19:31 | disposition home or self-care (01) | LOC: SLEEPLAB 19:30 | PROVIDERS: ATTEND Internal Medicine Critical Care Medicine | DX: G47.33 Obstructive sleep apnea (adult) (pediatric) (principal); R53.83 Other fatigue | CPT/HCPCS: 95811 ==

== ENCOUNTER 2021-12-22 08:34 | Outpatient (CLI) | payer OTHER | END 2021-12-22 08:35 | disposition home or self-care (01) | LOC: BICMAMMO 08:34 | PROVIDERS: ATTEND Family Medicine | DX: N63.20 Unspecified lump in the left breast, unspecified quadrant (principal); N64.89 Other specified disorders of breast; N64.59 Other signs and symptoms in breast | CPT/HCPCS: 77066; G0279 ==

== ENCOUNTER 2022-01-30 08:58 | Outpatient (CLI) | payer OTHER | END 2022-01-30 08:59 | disposition home or self-care (01) | LOC: BICMAMMO 08:58 | PROVIDERS: ATTEND Family Medicine | DX: N63.20 Unspecified lump in the left breast, unspecified quadrant (principal); N64.89 Other specified disorders of breast; N64.59 Other signs and symptoms in breast | CPT/HCPCS: G0279 ==